=== PATIENT | male | born 1970 | race Caucasian/White ===

== ENCOUNTER 2016-07-04 18:21 | Inpatient (IN) | payer BC, OTHER ==
[~2016-07-04] VITALS: Ht 180.3 cm; Wt 102.1 kg
[~2016-07-04 18:21] MED LIST: HCT25T; HYDR-2997 PO; LISI1TAB10 PO; NAPR-243 PO; ONDA4TAB11 PO; RABE20TA PO; VARD10TA19 PO; VERA120T
--- OUTSIDE RECORDS SUMMARY | 2016-07-04 18:26 | XMS REPORT | Continuity of Care Document ---
Author Author [facility] Address Unknown Phone Unavailable Allergies Active Description Code Type Severity Reaction Onset Reported/Identified Relationship to Patient Clinical Status Yes No Known Drug Allergies [id number] Drug Allergy Mild N/A 03/21/2008 Medications Problems Date Dx Coded Attending Type Code Diagnosis Diagnosed By 11/24/2007 530.81 GERD 11/24/2007 709.9 DERMATITIS OTHER SKIN DISORDERS 11/24/2007 530.81 GERD 11/24/2007 709.9 DERMATITIS OTHER SKIN DISORDERS 11/24/2007 MYRIAM CARTER DOA K 530.81 GERD 11/24/2007 CARTER DO TERENCE K 709.9 DERMATITIS OTHER SKIN DISORDERS 11/24/2007 RAUL WALTON TERENCE K 530.81 GERD 11/24/2007 CARTER DO TERENCE K 709.9 DERMATITIS OTHER SKIN DISORDERS 08/23/2008 401.9 ESSENTIAL HYPERTENSION 08/23/2008 401.9 ESSENTIAL HYPERTENSION 08/23/2008 CARTER DO TERENCE K 401.9 ESSENTIAL HYPERTENSION 08/23/2008 CARTER DO TERENCE K 401.9 ESSENTIAL HYPERTENSION 01/19/2009 465.9 UPPER RESPIRATORY INFECTION 01/19/2009 786.2 cough 01/19/2009 465.9 UPPER RESPIRATORY INFECTION 01/19/2009 786.2 cough 01/19/2009 CARTER DO TERENCE K 465.9 UPPER RESPIRATORY INFECTION 01/19/2009 CARTER DO, TERENCE K 786.2 cough 01/19/2009 CARTER DO TERENCE K 465.9 UPPER RESPIRATORY INFECTION 01/19/2009 CARTER DO, TERENCE K 786.2 cough 12/22/2009 110.5 DERMATOPHYTOSIS, OF THE BODY 12/22/2009 302.72 PSYCHOSEXUAL DYSFUNCTION, WITH INHIBITED SEXUAL EXCITEMENT 12/22/2009 110.5 DERMATOPHYTOSIS, OF THE BODY 12/22/2009 302.72 PSYCHOSEXUAL DYSFUNCTION, WITH INHIBITED SEXUAL EXCITEMENT 12/22/2009 MYRIAM CARTER DOA K 110.5 DERMATOPHYTOSIS, OF THE BODY 12/22/2009 TERENCE CARTER DO 302.72 PSYCHOSEXUAL DYSFUNCTION, WITH INHIBITED SEXUAL EXCITEMENT 12/22/2009 TERENCE CARTER DO 110.5 DERMATOPHYTOSIS, OF THE BODY 12/22/2009 TERENCE CARTER DO 302.72 PSYCHOSEXUAL DYSFUNCTION, WITH INHIBITED SEXUAL EXCITEMENT 08/24/2010 729.5 ARM PAIN 08/24/2010 784.0 HEADACHE 08/24/2010 729.5 ARM PAIN 08/24/2010 784.0 HEADACHE 08/24/2010 TERENCE CARTER DO K 729.5 ARM PAIN 08/24/2010 TERENCE CARTER DO K 784.0 HEADACHE 08/24/2010 TERENCE CARTER DO K 729.5 ARM PAIN 08/24/2010 MYRIAM CARTER DOA K 784.0 HEADACHE 11/09/2010 719.46 KNEE PAIN 11/09/2010 V68.1 ISSUE OF REPEAT PRESCRIPTIONS 11/09/2010 719.46 KNEE PAIN 11/09/2010 V68.1 ISSUE OF REPEAT PRESCRIPTIONS 11/09/2010 TERENCE CARTER DO 719.46 KNEE PAIN 11/09/2010 TERENCE CARTER DO V68.1 ISSUE OF REPEAT PRESCRIPTIONS 11/09/2010 TERENEC CARTER DO K 719.46 KNEE PAIN 11/09/2010 TERENCE CARTER DO V68.1 ISSUE OF REPEAT PRESCRIPTIONS 04/17/2011 461.9 SINUSITIS ACUTE 04/17/2011 461.9 SINUSITIS ACUTE 04/17/2011 TERENCE CARTER DO 461.9 SINUSITIS ACUTE 04/17/2011 TERENCE ACRTER DO 461.9 SINUSITIS ACUTE 07/28/2011 257.2 OTHER TESTICULAR HYPOFUNCTION 07/28/2011 257.2 OTHER TESTICULAR HYPOFUNCTION 07/28/2011 TERENCE CARTER DO 257.2 OTHER TESTICULAR HYPOFUNCTION 07/28/2011 TERENCE CARTER DO 257.2 OTHER TESTICULAR HYPOFUNCTION 08/01/2011 585.1 CHRONIC KIDNEY DISEASE STAGE I 08/01/2011 585.1 CHRONIC KIDNEY DISEASE STAGE I 08/01/2011 TERENCE CARTER DO 585.1 CHRONIC KIDNEY DISEASE STAGE I 08/01/2011 TERENCE CARTER DO 585.1 CHRONIC KIDNEY DISEASE STAGE I 05/15/2012 782.3 EDEMA 05/15/2012 TERENCE CARTER DO 782.3 EDEMA Procedures Code Description [place] [address] ROUTINE VENIPUNCTURE 05/27/2012 29051 MICRO ALBUMIN-IN HOUSE 05/27/2012 61278 CMP 05/27/2012 58013 LIPID PANEL 05/27 [id number] GFR CALC (RESULT ONLY) 05/27/2012 88953 CBC 05/27/2012 58094 TESTOSTERONE FREE 05/27/2012 75358 TSH 05/27/2012 Results Encounters ACCT No. Visit Date/Time Discharge Status Pt. Type Provider Facility Loc./Unit Complaint [id number] 05/27/2012 09:44:00 05/27/2012 23: 59:59 CLS Outpatient TERENCE CARTER DO [id number] 05/15/2012 09:38:00 05/15/2012 23: 59:59 CLS Outpatient [id number] 12/10/2011 13:24:00 12/10/2011 23: 59:59 CLS Outpatient [id number] 12/10/2011 13:24:00 12/10/2011 23:59 :59 CLS Outpatient TERENCE CARTER DO
[2016-07-04] MEDS ORDERED: NS IV 1000 ML 1,000 ML IV ONE (19:35)
[2016-07-04] MEDS ORDERED: NS IV 1000 ML 1,000 ML ONE (19:36)
[2016-07-04 19:41] LABS: BASOPHILS % (AUTO) 0 % (0-10); EOSINOPHILS % (AUTO) 0 % (0-10); LYMPHOCYTES # (AUTO) 1.1 X 10^3 (1.0-4.0); LYMPHOCYTES % (AUTO) 4 % (12-44); MEAN CORPUSCULAR HEMOGLOBIN 30 PG (25-34); MEAN CORPUSCULAR HGB CONC 35 G/DL (32-36); MEAN CORPUSCULAR VOLUME 87 FL (80-99); MEAN PLATELET VOLUME 9.8 FL (7.4-10.4); MONOCYTES # (AUTO) 2.9 X 10^3 (0.0-1.0); MONOCYTES % (AUTO) 9 % (0-12); NEUTROPHILS # (AUTO) 27.8 X 10^3 (1.8-7.8); NEUTROPHILS % (AUTO) 87 % (42-75); PLATELET COUNT 342 10^3/uL (130-400); RED BLOOD COUNT 5.04 10^6/uL (4.35-5.85); RED CELL DISTRIBUTION WIDTH 14.1 % (10.0-14.5)
[2016-07-04 19:44] LABS: WHITE BLOOD COUNT 31.8 10^3/uL (4.3-11.0)
[2016-07-04 19:57] LABS: BAND NEUTROPHILS 4 %; BASOPHILS % (MANUAL) 1 %; EOSINOPHILS % (MANUAL) 0 %; LYMPHOCYTES % (MANUAL) 8 %; NEUTROPHILS % (MANUAL) 82 %
[2016-07-04 20:01] LABS: ALBUMIN 4.2 G/DL (3.2-4.5); BILIRUBIN,TOTAL 1.5 MG/DL (0.1-1.0); CALCIUM 9.2 MG/DL (8.5-10.1); CREATININE SERUM 1.96 MG/DL (0.60-1.30); POTASSIUM 4.2 MMOL/L (3.6-5.0); TOTAL PROTEIN 6.9 G/DL (6.4-8.2)
[2016-07-04 20:04] LABS: AMYLASE 43 U/L (25-125); LIPASE 19 U/L (8-78)
--- NOTE | 2016-07-04 21:07 | Diagnostic Imaging Report ---
PROCEDURE: CT chest, abdomen, and pelvis without contrast. TECHNIQUE: Multiple contiguous axial images were obtained through the chest, abdomen, and pelvis without the use of intravenous contrast. INDICATION: Fever of unknown origin. Mid abdominal pain. Nausea. COMPARISON: CT abdomen and pelvis without contrast 03/17/2008. FINDINGS: CT chest: Minimal bibasilar atelectasis. The lungs are otherwise clear. No pleural or pericardial effusion. No mediastinal, hilar or axillary lymphadenopathy. No acute osseous findings. CT abdomen and pelvis: Large esophageal hiatal hernia. A 3 mm ureteral stone in the left ureterovesical junction results in no ureteropyelocaliectasis. Single 2 mm nonobstructing calyceal tip renal stone in the right kidney. Mild scattered arterial calcifications. Appendectomy. The liver, gallbladder, pancreas, spleen, adrenals, left kidney, right ureter, bladder are negative on this noncontrast exam. No free intraperitoneal air/fluid, lymphadenopathy or evidence of bowel obstruction. Osseous structures are unremarkable. IMPRESSION: 1. Large esophageal hiatal hernia. 2. Nonobstructing 3 mm ureteral stone in the left UVJ. No left hydronephrosis. 3. Minimal bibasilar atelectasis. CT of the chest is otherwise negative. Dictated by: Dictated on workstation # [id number]
[2016-07-04 21:39] LABS: BILIRUBIN,URINE NEGATIVE (NEGATIVE); KETONES,URINE NEGATIVE (NEGATIVE); LEUKOCYTE ESTERASE ,URINE 1+ (NEGATIVE); NITRITE,URINE NEGATIVE (NEGATIVE); PH,URINE 5 (5-9); PROTEIN,URINE 2+ (NEGATIVE); UROBILINOGEN,URINE NORMAL (NORMAL)
[2016-07-04 21:54] LABS: SQUAMOUS EPITHELIAL CELL,UR RARE /HPF; WBC,URINE RARE /HPF
[2016-07-04] MEDS ORDERED: KETOROLAC 30 MG/ML VIAL IVP ONE (22:00)
[2016-07-04] MEDS ORDERED: cefTRIAXone INJECTION 1,000 MG in NS (IVPB) 50 ML IV ONE (22:00)
[2016-07-04 22:30] VITALS: BP 87/55
[2016-07-04] MEDS ORDERED: LACTATED RINGERS 1,000 ML IV ONE (22:50)
[2016-07-04] MEDS ORDERED: D5 1/2 NS 1000 ML IV SOLUTION 1,000 ML IV ONE (23:31)
[2016-07-04] MEDS ORDERED: ONDANSETRON 4 MG/2 ML (SDV) Z0FRAN IV PRN (23:45)
[2016-07-04] MEDS: D5 1/2 NS 1000 ML IV SOLUTION 1,000 ML IV SCH (23:47)
[2016-07-05] VITALS (10 sets, daily range): BP systolic 88–104; BP diastolic 50–66
[2016-07-05] MEDS: KETOROLAC 30 MG/ML VIAL IVP PRN ×2 (04:53→19:43)
[2016-07-05 06:09] LABS: BASOPHILS % (AUTO) 0 % (0-10); EOSINOPHILS % (AUTO) 0 % (0-10); LYMPHOCYTES # (AUTO) 0.8 X 10^3 (1.0-4.0); LYMPHOCYTES % (AUTO) 4 % (12-44); MEAN CORPUSCULAR HEMOGLOBIN 30 PG (25-34); MEAN CORPUSCULAR HGB CONC 34 G/DL (32-36); MEAN CORPUSCULAR VOLUME 87 FL (80-99); MEAN PLATELET VOLUME 9.7 FL (7.4-10.4); MONOCYTES # (AUTO) 2.2 X 10^3 (0.0-1.0); MONOCYTES % (AUTO) 10 % (0-12); NEUTROPHILS # (AUTO) 19.9 X 10^3 (1.8-7.8); NEUTROPHILS % (AUTO) 87 % (42-75); PLATELET COUNT 252 10^3/uL (130-400); RED BLOOD COUNT 4.35 10^6/uL (4.35-5.85)
[2016-07-05 06:34] LABS: ALANINE AMINOTRANSFERASE 55 U/L (0-55); ALBUMIN 3.4 G/DL (3.2-4.5); ANION GAP 10 MMOL/L (5-14); ASPARTATE AMINO TRANSFERASE 43 U/L (5-34); BILIRUBIN,TOTAL 1.4 MG/DL (0.1-1.0); BLOOD UREA NITROGEN 28 MG/DL (7-18); BUN/CREATININE RATIO 22; CALCIUM 8.5 MG/DL (8.5-10.1); CARBON DIOXIDE 19 MMOL/L (21-32); CHLORIDE 108 MMOL/L (98-107); CREATININE SERUM 1.29 MG/DL (0.60-1.30); GFR ESTIMATED > 60; GLUCOSE 116 MG/DL (70-105); POTASSIUM 3.4 MMOL/L (3.6-5.0); SODIUM 137 MMOL/L (135-145); TOTAL PROTEIN 5.7 G/DL (6.4-8.2)
[2016-07-05] MEDS: ACETAMINOPHEN 500 MG TAB (TYLENOL) PO PRN (06:55)
[2016-07-05] MEDS: D5 1/2 NS 1000 ML IV SOLUTION 1,000 ML IV SCH ×3 (06:55→22:16)
[2016-07-05] MEDS ORDERED: FLU TRIvalent (5 YOA+) 2016-17 (AFLURIA) 0.5 ML IM ONE (07:00)
[2016-07-05] MEDS ORDERED: CATHETER FLUSH 10 ML SYR IV PRN (07:00)
--- NOTE | 2016-07-05 07:08 | ED General ---
General Chief Complaint: Fever-Adult/Adol Stated Complaint: SEPSIS,DEHYDRATION,L DISTAL URETERAL STONE,EPIGAST Nursing Triage Note: PT REPORTS FEVER TODAY OF 103.2. PT REPORTS GENERALIZED BODY ACHES AND ABDOMINAL PAIN. PT FEELS LIGHTHEADED AND REPORTS HIS VISION IS "DARKER THAN NORMAL." Nursing Sepsis Screen: No Definite Risk Source of Information: Patient (LIMITED HISTORIAN), Spouse History of Present Illness Time Seen by Provider: 19:30 Initial Comments PT ARRIVES VIA POV FROM HOME PT STATES HE WAS SICK LAST WEEK WITH FEVER, WAS FINE FOR A FEW DAYS, THEN TODAY FEVER RETURNED AND WAS 103.2 C/O EPIGASTRIC PAIN C/O NAUSEA AND VOMITED X 1 --NO HEMATEMESIS OR COFFEE-GROUND EMESIS C/O DIARRHEA X 4--NO BLACK/BLOODY/TARRY STOOLS ATE SMALL AMOUNT OF YOGURT TODAY AND 2 SMALL GLASSED OF O.J. TODAY--NO OTHER INTAKE LAST VOID WAS AT 11:30 AM TODAY NO BACK PAIN NO COUGH NO CHEST PAIN OR SHORTNESS OF BREATH PT STATES MULTIPLE FAMILY MEMBERS WITH SAME ARRIVES LATER AND STATES THAT HOUSEHOLD MEMBER TESTED + FOR FLU LAST WEEK SHE ALSO STATES THAT BOTH SHE AND PT WERE TREATED LAST WEEK WITH CEFDINIR FOR URI SYMPTOMS--SHE IS BETTER, AND PT WAS BETTER FOR A FEW DAYS. PCP: DR. DEJESUS Allergies and Home Medications Allergies Coded Allergies: No Known Drug Allergies (Unverified , 03/21/08) Home Medications Hctz/Lisinopril 1 Tab Tablet 1 EACH PO DAILY (Reported) Ondansetron 4 Mg Tab.rapdis #10 4 MG PO Q6H PRN PRN Prescribed by: ROLANDO GONZALES on 04/09/11 0950 Rabeprazole Sodium 20 Mg Tablet.dr 20 MG PO (Reported) Vardenafil Hcl 10 Mg Tablet 10 MG PO (Reported) Verapamil Hcl 120 Mg Tablet (Reported) Constitutional: see HPI fever malaise weakness EENTM: no symptoms reported Respiratory: no symptoms reported Cardiovascular: no symptoms reported Gastrointestinal: see HPI abdominal pain diarrhea loss of appetite nausea vomiting Genitourinary: see HPI decreased output Musculoskeletal: no symptoms reported Skin: no symptoms reported Psychiatric/Neurological: No Symptoms ReportedDenies Headache Hematologic/Lymphatic: No Symptoms Reported Immunological/Allergic: no symptoms reported Past Jnbnaai-Fngtep-Lrmmkk Hx Patient Social History Alcohol Use: Past History (HISTORY OF ABUSE-NONE FOR 3 2 YEARS, PER PT ON 01/12) Recreational Drug Use: Yes (THC) Smoking Status: Current Everyday Smoker (1/2 PPD) Type Used: Cigarettes Recent Foreign Travel: No Contact w/Someone Who Travel: No Recent Infectious Disease Expo: No Recent Hopitalizations: No Physical Abuse Screen: No Sexual Abuse: No Seasonal Allergies Seasonal Allergies: No Surgeries HX Surgeries: Yes (FACIAL RECONSTRUCTION SURGERY; KIDNEY STONE REMOVAL) Surgeries: Appendectomy, Renal Respiratory Hx Respiratory Disorders: No Cardiovascular Hx Cardiac Disorders: Yes Cardiac Disorders: Hypertension Neurological Hx Neurological Disorders: No Reproductive System Hx Reproductive Disorders: No Sexually Transmitted Disease: No Genitourinary Hx Genitourinary Disorders: Yes (KIDNEY STONE) Genitourinary Disorders: Kidney Stones Gastrointestinal Hx Gastrointestinal Disorders: Yes Gastrointestinal Disorders: Gastroesophageal Reflux Musculoskeletal Hx Musculoskeletal Disorders: No Endocrine Hx Endocrine Disorders: No HEENT HX ENT Disorders: No Cancer Hx Cancer: No Psychosocial Hx Psychiatric Problems: Yes Behavioral Health Disorders: Depression Integumentary HX Skin/Integumentary Disorder: No Blood Transfusions Hx Blood Disorders: No Adverse Reaction to a Blood Tr: No Family Medical History Family Medial History: Completed stroke 19 MOTHER Diabetes mellitus 19 MOTHER Headache disorder 19 FATHER Hypertension 19 FATHER 19 MOTHER G8 BROTHER G8 BROTHER G8 BROTHER G8 BROTHER G8 SISTER G8 SISTER G8 SISTER G8 SISTER Physical Exam Vital Signs Vital Sign - Last 12Hours 07/04/16 07/04/16 19:19 19:30 Temp 97.1 Pulse 100 Resp 18 B/P 95/57 Pulse Ox 96 O2 Delivery Room Air Capillary Refill : Less Than 3 Seconds General Appearance: No Apparent Distress WD/WN Other (LETHARGIC) HEENT: PERRL/EOMI Other (DRY ORAL MUCOSA) Neck: Full Range of Motion Normal Inspection Non Tender Supple Respiratory: Normal Breath Sounds No Accessory Muscle Use No Respiratory Distress Cardiovascular: Regular Rate, Rhythm No Edema No JVD No Murmur Normal Peripheral Pulses Gastrointestinal: Normal Bowel Sounds No Organomegaly No Pulsatile Mass Soft Tenderness (EPIGASTRIC ) Back: Normal Inspection Extremity: Normal Inspection Normal Range of Motion Non Tender No Calf Tenderness No Pedal Edema Neurologic/Psychiatric: Alert (BUT LETHARGIC) Oriented x3 No Motor/Sensory Deficits cold roll catcher II-XII Norm as Tested Skin: Normal Color Warm/Dry Tattoos/Piercings (MULTIPLE TATTOOS) Progress/Results/Core Measures Results/Orders Lab Results Laboratory Tests Test 07/04/16 19:15 07/04/16 19:45 07/04/16 21:30 07/04/16 21:57 Range/Units Alanine Aminotransferase (ALT/SGPT) 34 0-55 U/L Albumin 4.2 3.2-4.5 G/DL Alkaline Phosphatase 83 40-136 U/L Amylase Level 43 25-125 U/L Anion Gap 12 5-14 MMOL/L Aspartate Amino Transf (AST/SGOT) 19 5-34 U/L BUN/Creatinine Ratio 13 Band Neutrophils 4 % Basophils # (Auto) 0.0 0.0-0.1 10^3/uL Basophils % (Manual) 1 % Basophils (%) (Auto) 0 0-10 % Blood Morphology Comment NORMAL Blood Urea Nitrogen 26 H 7-18 MG/DL Calcium Level 9.2 8.5-10.1 MG/DL Carbon Dioxide Level 22 21-32 MMOL/L Chloride Level 103 98-107 MMOL/L Creatinine 1.96 H 0.60-1.30 MG/DL Eosinophils # (Auto) 0.0 0.0-0.3 10^3/uL Eosinophils % (Manual) 0 % Eosinophils (%) (Auto) 0 0-10 % Estimat Glomerular Filtration Rate 37 Glucose Level 106 H 70-105 MG/DL Hematocrit 44 40-54 % Hemoglobin 15.1 13.3-17.7 G/DL Lipase 19 8-78 U/L Lymphocytes # (Auto) 1.1 1.0-4.0 X 10^3 Lymphocytes % (Manual) 8 % Lymphocytes (%) (Auto) 4 L 12-44 % Mean Corpuscular Hemoglobin 30 25-34 PG Mean Corpuscular Hemoglobin Concent 35 32-36 G/DL Mean Corpuscular Volume 87 80-99 FL Mean Platelet Volume 9.8 7.4-10.4 FL Monocytes # (Auto) 2.9 H 0.0-1.0 X 10^3 Monocytes % (Manual) 5 % Monocytes (%) (Auto) 9 0-12 % Monoscreen NEGATIVE NEGATIVE Neutrophils # (Auto) 27.8 H 1.8-7.8 X 10^3 Neutrophils % (Manual) 82 % Neutrophils (%) (Auto) 87 H 42-75 % Platelet Count 342 130-400 10^3/uL Potassium Level 4.2 3.6-5.0 MMOL/L Red Blood Count 5.04 4.35-5.85 10^6/uL Red Cell Distribution Width 14.1 10.0-14.5 % Sodium Level 137 135-145 MMOL/L Total Bilirubin 1.5 H 0.1-1.0 MG/DL Total Protein 6.9 6.4-8.2 G/DL White Blood Count 31.8 *H 4.3-11.0 10^3/uL Lactic Acid Level 0.94 0.50-2.00 MMOL/L Urine Bacteria TRACE /HPF Urine Bilirubin NEGATIVE NEGATIVE Urine Casts PRESENT /LPF Urine Clarity SLIGHTLY CLOUDY Urine Color YELLOW Urine Crystals NONE /LPF Urine Culture Indicated NO Urine Glucose (UA) NEGATIVE NEGATIVE Urine Hyaline Casts 10-25 H /LPF Urine Ketones NEGATIVE NEGATIVE Urine Leukocyte Esterase 1+ H NEGATIVE Urine Mucus MODERATE H /LPF Urine Nitrite NEGATIVE NEGATIVE Urine Protein 2+ H NEGATIVE Urine RBC NONE /HPF Urine RBC (Auto) NEGATIVE NEGATIVE Urine Specific Posey 1.020 1.016-1.022 Urine Squamous Epithelial Cells RARE /HPF Urine Urobilinogen NORMAL NORMAL MG/DL Urine WBC RARE /HPF Urine pH 5 5-9 Group A Streptococcus Screen NEGATIVE NEGATIVE Test 07/05/16 05:56 Range/Units Alanine Aminotransferase (ALT/SGPT) 55 0-55 U/L Albumin 3.4 3.2-4.5 G/DL Alkaline Phosphatase 80 40-136 U/L Anion Gap 10 5-14 MMOL/L Aspartate Amino Transf (AST/SGOT) 43 H 5-34 U/L BUN/Creatinine Ratio 22 Basophils # (Auto) 0.0 0.0-0.1 10^3/uL Basophils (%) (Auto) 0 0-10 % Blood Urea Nitrogen 28 H 7-18 MG/DL Calcium Level 8.5 8.5-10.1 MG/DL Carbon Dioxide Level 19 L 21-32 MMOL/L Chloride Level 108 H 98-107 MMOL/L Creatinine 1.29 0.60-1.30 MG/DL Eosinophils # (Auto) 0.0 0.0-0.3 10^3/uL Eosinophils (%) (Auto) 0 0-10 % Estimat Glomerular Filtration Rate > 60 Glucose Level 116 H 70-105 MG/DL Hematocrit 38 L 40-54 % Hemoglobin 12.9 L 13.3-17.7 G/DL Lymphocytes # (Auto) 0.8 L 1.0-4.0 X 10^3 Lymphocytes (%) (Auto) 4 L 12-44 % Mean Corpuscular Hemoglobin 30 25-34 PG Mean Corpuscular Hemoglobin Concent 34 32-36 G/DL Mean Corpuscular Volume 87 80-99 FL Mean Platelet Volume 9.7 7.4-10.4 FL Monocytes # (Auto) 2.2 H 0.0-1.0 X 10^3 Monocytes (%) (Auto) 10 0-12 % Neutrophils # (Auto) 19.9 H 1.8-7.8 X 10^3 Neutrophils (%) (Auto) 87 H 42-75 % Platelet Count 252 130-400 10^3/uL Potassium Level 3.4 L 3.6-5.0 MMOL/L Red Blood Count 4.35 4.35-5.85 10^6/uL Red Cell Distribution Width 14.0 10.0-14.5 % Sodium Level 137 135-145 MMOL/L Total Bilirubin 1.4 H 0.1-1.0 MG/DL Total Protein 5.7 L 6.4-8.2 G/DL White Blood Count 23.0 H 4.3-11.0 10^3/uL Micro Results Microbiology 07/04/16 Influenza Types A,B Antigen (CHRISTINA) - Final, Complete My Orders Orders-ZEIO SANTILLAN DO Amylase (07/04/16 19:40) Lactic Acid Analyzer (07/04/16 19:40) Lipase (07/04/16 19:40) Blood Culture (07/04/16 19:40) Ct Chest/Abdomen/Pelvis Wo (07/04/16 20:17) Ketorolac Injection (Toradol Injection) (07/04/16 22:00) Ceftriaxone Injection (Rocephin Injectio (07/04/16 22:00) Monotest (07/04/16 21:56) Rapid Strep A Screen (07/04/16 21:56) Saline Lock/Iv-Start (07/04/16 22:50) Lactated Ringers (Lr 1000 Ml Iv Solution (07/04/16 22:50) D5 1/2 Ns 1000 Ml Iv Solution (Dextrose (07/04/16 23:31) Medications Given in ED Current Medications Medications Dose Ordered Sig/Selene Route Start Time Stop Time Status Last Admin Dose Admin Sodium Chloride 1,000 ml @ 0 mls/hr Q0M ONCE IV 07/04/16 19:35 07/04/16 19:37 DC 07/04/16 19:36 0 MLS/HR Vital Signs/I&O Vital Sign - Last 12Hours 07/04/16 07/04/16 07/04/16 07/04/16 19:19 19:30 20:00 22:00 Temp 97.1 97.1 97.1 97.1 Pulse 100 82 85 76 Resp 18 18 20 20 B/P 95/57 100/67 94/55 98/64 Pulse Ox 96 98 98 98 O2 Delivery Room Air Room Air Room Air 07/04/16 07/04/16 07/04/16 07/04/16 22:30 22:30 23:09 23:45 Temp 97.1 98.6 99.0 Pulse 77 64 80 Resp 16 16 18 B/P 98/57 87/55 Pulse Ox 95 94 95 O2 Delivery Room Air Room Air Room Air 07/05/16 07/05/16 07/05/16 07/05/16 00:30 02:00 04:00 06:00 Temp 98.9 98.0 100.1 101.3 Pulse 62 68 72 74 Resp 18 18 18 18 B/P 88/56 88/56 102/66 94/60 Pulse Ox 94 96 97 97 O2 Delivery Room Air Room Air Room Air Room Air 07/05/16 06:55 Temp 101.3 Blood Pressure Mean: 71 Progress Note : Progress Note BP UP WITH FLUIDS PT SWEATING PROFUSELY PRIOR TO ADMIT. Diagnostic Imaging Comments CT CHEST/ABDOMEN/PELVIS--LARGE HIATAL HERNIA; NON-OBSTRUCTING 3 M M LEFT DISTAL URETERAL STONE AT UVJ; MINIMAL BIBASILAR ATELECTASIS--PER RADIOLOGIST REPORT @ 2111 Reviewed: Reviewed by Me Departure Communication Progress Notes 1947--ATTEMPTING TO CONTACT DR. LAN, MESSAGE LEFT ON CELL 2019--SPOKE WITH DR. LAN, ACCEPTS PT FOR ADMIT. Impression Impression: Primary Impression: Sepsis Additional Impressions: Dehydration Calculus of distal left ureter Epigastric abdominal pain Disposition: ADMITTED INPATIENT Condition: Improved Decision to Admit Reason: Admit from ER (General) Decision to Admit/Date: Jul 04, 2016 Time/Decision to Admit Time: 20:20 Departure-Patient Inst. Referrals: NOELLE DEJESUS MD (PCP) Primary Care Physician EZIO SANTILLAN DO Jul 05, 2016 07:08
[2016-07-05] MEDS ORDERED: IBUPROFEN TABLET 200 MG TAB PO PRN (08:30)
[2016-07-05] MEDS: PANTOPRAZOLE 40 MG/10 ML (PROTONIX) VIAL IV SCH (08:37)
[2016-07-05] MEDS ORDERED: METO-270 PO (10:04)
[2016-07-05] MEDS ORDERED: TRAM50TA2 (10:04)
[2016-07-05] MEDS ORDERED: SERT100T8 (10:04)
[2016-07-05] MEDS ORDERED: LISI40TA (10:04)
[2016-07-05] MEDS ORDERED: ACET125T2 (10:04)
[2016-07-05] MEDS ORDERED: OMEP20CA12 (10:04)
[2016-07-05] MEDS ORDERED: RT-ALBUINH IH (10:05)
[2016-07-05] MEDS ORDERED: ASCO-262 PO (10:06)
[2016-07-05] MEDS ORDERED: VITAMIN D CALCIUM (10:08)
[2016-07-05] MEDS ORDERED: CALC-140 PO (10:09)
--- NOTE | 2016-07-05 12:48 | History & Physical-Hospitalist ---
HPI History of Present Illness: HPI/Chief Complaint The patient is a 46-year-old white male who presented to the emergency room in the late afternoon with complaints of fever, some chills, and diarrhea. He reported a temperature up to 103.2 at home. This was accompanied by chills and sweats. He reported that he and his family have all had an upper respiratory illness in the week prior to this presentation. They had taken antibiotics and thought that they got better. This episode then ensued. The rest of the family remains improved. The medication which his and he had taken was said to be Ceftin here. His past medical history is positive for hypertension Source: patient Exam Limitations: no limitations Date Seen 07/05/16 Attending Physician Randa Plaesncia Rachel L MD Referring Physician Date of Admission Jul 04, 2016 at 20:20 Home Medications & Allergies Home Medications Reviewed patient Home Medication Reconciliation Form Allergies Coded Allergies: No Known Drug Allergies (Unverified , 03/21/08) Past Drlluyy-Xgpmxn-Yhnfez Hx Patient Social History Alcohol Use: Past History (HISTORY OF ABUSE-NONE FOR 3 1/2 YEARS, PER PT ON 01/12) Recreational Drug Use: Yes (THC) Smoking Status: Current Everyday Smoker (1/2 PPD) Type Used: Cigarettes Physical Abuse Screen: No Sexual Abuse: No Recent Foreign Travel: No Contact w/other who traveled: No Recent Hopitalizations: No Recent Infectious Disease Expo: No Seasonal Allergies Seasonal Allergies: No Surgeries HX Surgeries: Yes (FACIAL RECONSTRUCTION SURGERY; KIDNEY STONE REMOVAL) Surgeries: Appendectomy, Renal Respiratory Hx Respiratory Disorders: No Cardiovascular Hx Cardiovascular Disorders: Yes Cardiac Disorders: Hypertension Neurological Hx Neurological Disorders: No Reproductive System Hx Reproductive Disorders: No Sexually Transmitted Disease: No Genitourinary Hx Genitourinary Disorders: Yes (KIDNEY STONE) Genitourinary Disorders: Kidney Stones Gastrointestinal Hx Gastrointestinal Disorders: Yes Gastrointestinal Disorders: Gastroesophageal Reflux Musculoskeletal Hx Musculoskeletal Disorders: No Endocrine Hx Endocrine Disorders: No HEENT HX ENT Disorders: No Cancer Hx Cancer: No Psychosocial Hx Psychiatric Problems: Yes Behavioral Health Disorders: Depression Integumentary HX Skin/Integumentary Disorder: No Blood Transfusions Hx Blood Disorders: No Adverse Reaction to a Blood Tr: No Family Medical History Family Hx: Completed stroke 19 MOTHER Diabetes mellitus 19 MOTHER Headache disorder 19 FATHER Hypertension 19 FATHER 19 MOTHER G8 BROTHER G8 BROTHER G8 BROTHER G8 BROTHER G8 SISTER G8 SISTER G8 SISTER G8 SISTER Review of Systems Constitutional: see HPI EENTM: no symptoms reported Respiratory: cough dyspnea on exertion phlegm Cardiovascular: no symptoms reported Gastrointestinal: diarrhea loss of appetite nausea Genitourinary: no symptoms reported Musculoskeletal: no symptoms reported Skin: no symptoms reported Psychiatric/Neurological: No Symptoms Reported Physical Exam Physical Exam Vital Signs Vital Sign - Last 12Hours 07/04/16 07/04/16 19:19 19:30 Temp 97.1 Pulse 100 Resp 18 B/P 95/57 Pulse Ox 96 O2 Delivery Room Air Capillary Refill : Less Than 3 Seconds General Appearance: Mild Distress Eyes: Bilateral Eye Normal Inspection HEENT: Normal ENT Inspection Neck: Normal Inspection Respiratory: Chest Non Tender Lungs Clear Normal Breath Sounds No Accessory Muscle Use No Respiratory Distress Cardiovascular: Regular Rate, Rhythm No Edema No Gallop No JVD No Murmur Normal Peripheral Pulses Gastrointestinal: Other (abdomen is nontender bowel sounds are virtually absent) Back: Normal Inspection No CVA Tenderness No Vertebral Tenderness Neurologic/Psychiatric: Alert Oriented x3 No Motor/Sensory Deficits Normal Mood/Affect caser up II-XII Norm as Tested Skin: Other (the skin is extensively tattooed) Lymphatic: No Adenopathy Results Results/Procedures Lab Laboratory Tests 07/04/16 19:15 07/05/16 05:56 Assessment/Plan Admission Diagnosis Recent upper respiratory illness. 2.acute febrile illness. 3.frequent stools suggesting Clostridium difficile Assessment and Plan Continue IV fluids and nothing by mouth status. Add Questran for stools Stool collection for Clostridium difficile Consider discontinuation of Rocephin. Note distal ureteral stone with clean urine Clinical Quality Measures DVT/VTE Risk/Contraindication: Risk Factor Score Per Nursin RFS Level Per Nursing on Admit: 4+=Very High LLOYD GOODMAN MD Jul 05, 2016 12:48
--- NOTE | 2016-07-05 16:03 | Diagnostic Imaging Report ---
PROCEDURE: US abdomen complete. TECHNIQUE: Multiple real-time grayscale images were obtained over the abdomen in various projections. INDICATION: Abdominal pain. FINDINGS: There are no previous ultrasound examinations available for comparison. The CT chest, abdomen, and pelvis exam of 07/04/2016 noted a nonobstructed 3 mm ureteral stone in the left ureterovesical junction. There is no hydronephrosis. There is no abnormality of the gallbladder identified. On this exam, there is no sign of cholelithiasis. The gallbladder is somewhat distended, however. The gallbladder wall is also minimally thickened measuring 4-5 mm (normal 3 mm or less). There is no pericholecystic fluid to suggest acute cholecystitis, however. Even so, if clinical concern regarding an acute abnormality of the gallbladder persists, then a nuclear medicine hepatobiliary scan will be recommended for further study. The common bile duct is at the upper limits of normal measuring 6 mm. The liver is prominent but homogeneous. The spleen is also at the upper limits of normal measuring 6.3 x 6.6 x 12.5 cm. The kidneys are normal in size with the right kidney measuring 11.1 x 6.4 x 5.5 cm and left kidney estimated to be 12.4 x 6.8 x 5.3 cm. The small nonobstructive calculus in the right kidney seen on the CT exam is not well visualized on this study. There is still no evidence for hydronephrosis of either kidney. The pancreas and the proximal aorta are obscured by bowel gas. The inferior vena cava is unremarkable. IMPRESSION: 1. There is no evidence for cholelithiasis, but the gallbladder is distended and the gallbladder wall is minimally thickened. Recommendations as above. 2. There is no acute abnormality of the abdomen noted otherwise. 3. Both the liver and spleen are at the upper limits of normal. 4. The small nonobstructive calculus within the right kidney seen on the CT exam is not visualized on this study. Dictated by: Dictated on workstation # [id number]
[2016-07-05] MEDS: CHOLESTYRAMINE 4 GM (QUESTRAN LITE, PREVALITE) PKT PO SCH (22:16)
[2016-07-05] MEDS: cefTRIAXone INJECTION 1,000 MG in NS (IVPB) 50 ML IV SCH (22:16)
[2016-07-06] VITALS: BP 116/69
[2016-07-06] MEDS: D5 1/2 NS 1000 ML IV SOLUTION 1,000 ML IV SCH ×2 (01:05→08:16)
[2016-07-06] MEDS: ACETAMINOPHEN 500 MG TAB (TYLENOL) PO PRN (03:42)
[2016-07-06 04:30] VITALS: BP 105/61
[2016-07-06 05:19] LABS: BASOPHILS % (AUTO) 0 % (0-10); EOSINOPHILS # (AUTO) 0.1 10^3/uL (0.0-0.3); EOSINOPHILS % (AUTO) 1 % (0-10); LYMPHOCYTES # (AUTO) 1.4 X 10^3 (1.0-4.0); LYMPHOCYTES % (AUTO) 7 % (12-44); MEAN CORPUSCULAR HEMOGLOBIN 30 PG (25-34); MEAN CORPUSCULAR HGB CONC 34 G/DL (32-36); MEAN CORPUSCULAR VOLUME 88 FL (80-99); MONOCYTES # (AUTO) 1.6 X 10^3 (0.0-1.0); MONOCYTES % (AUTO) 8 % (0-12); NEUTROPHILS # (AUTO) 16.8 X 10^3 (1.8-7.8); NEUTROPHILS % (AUTO) 85 % (42-75); PLATELET COUNT 231 10^3/uL (130-400); RED BLOOD COUNT 4.08 10^6/uL (4.35-5.85); RED CELL DISTRIBUTION WIDTH 13.7 % (10.0-14.5); WHITE BLOOD COUNT 19.9 10^3/uL (4.3-11.0)
[2016-07-06] MEDS: KETOROLAC 30 MG/ML VIAL IVP PRN (08:16)
[2016-07-06] MEDS: PANTOPRAZOLE 40 MG/10 ML (PROTONIX) VIAL IV SCH (08:16)
[2016-07-06] MEDS: CHOLESTYRAMINE 4 GM (QUESTRAN LITE, PREVALITE) PKT PO SCH ×2 (08:16→21:55)
[2016-07-06 08:38] VITALS: BP 112/71
[2016-07-06] MEDS ORDERED: POTASSIUM CHLORIDE IV SCH (10:15)
[2016-07-06] MEDS ORDERED: 1/2 NS IV SCH (10:15)
[2016-07-06] MEDS ORDERED: D5 IV SCH (10:15)
--- NOTE | 2016-07-06 10:18 | Progress Note-Hospitalist ---
Progress Note HPI/CC on Admission The patient is a 46-year-old white male who presented to the emergency room in the late afternoon with complaints of fever, some chills, and diarrhea. He reported a temperature up to 103.2 at home. This was accompanied by chills and sweats. He reported that he and his family have all had an upper respiratory illness in the week prior to this presentation. They had taken antibiotics and thought that they got better. This episode then ensued. The rest of the family remains improved. The medication which his and he had taken was said to be Ceftin here. His past medical history is positive for hypertension Progress Notes/Assess & Plan Date Seen 07/06/16 Diagonsis/Assessment & Plan Reviewed progress notes and ER report Reviewed abdominal ultrasound reveals possible gallbladder a source of infection and I have consulted Dr. Thayer who agreed to see Updated the patient Patient's pain remains in the mid epigastric to the right upper quadrant consistent with gallbladder etiology of the source of problem Fever max was 101 but was 103.2 when he was admitted Rocephin remains Hyperkalemia will be supplemented and IV fluids No fever currently, vital signs stable, pleasant Regular rate and rhythm, clear to all sedation bilaterally No edema Right upper quadrant pain Laboratory Tests 07/06/16 05:05 Assessment: Fever of 103.2 with diarrhea and elevated total bilirubin and distended gallbladder consistent with possible gallbladder source of infection Nausea Diarrhea Leukocytosis Plan: Consult Dr. Thayer for possible cholecystectomy Maintain Rocephin antibiotics empirically Monitor closely Replace potassium and IV fluids Clear liquid diet until Dr. Thayer changes that Check labs in a.m. STEPHANIE LAN DO Jul 06, 2016 10:18
[2016-07-06] MEDS: D5 1/2 NS W/KCL 20 MEQ/L 1,000 ML IV SCH ×2 (10:38→21:58)
[2016-07-06] MEDS ORDERED: HYDROcodone/APAP 7.5 MG/325 MG (LORTAB, LORCET PLUS) TABLET PO PRN (11:30)
[2016-07-06 12:00] VITALS: BP 119/74
[2016-07-06] MEDS: metroNIDAZOLE 500 MG (FLAGYL) TAB PO SCH ×2 (14:53→21:54)
[2016-07-06 16:00] VITALS: BP 110/68
[2016-07-06 20:00] VITALS: BP 134/71
[2016-07-06] MEDS: cefTRIAXone INJECTION 1,000 MG in NS (IVPB) 50 ML IV SCH (21:57)
[2016-07-07] VITALS: BP 119/72
[2016-07-07 04:00] VITALS: BP 129/69
[2016-07-07 06:11] LABS: BASOPHILS % (AUTO) 0 % (0-10); EOSINOPHILS # (AUTO) 0.1 10^3/uL (0.0-0.3); EOSINOPHILS % (AUTO) 1 % (0-10); LYMPHOCYTES # (AUTO) 1.3 X 10^3 (1.0-4.0); LYMPHOCYTES % (AUTO) 14 % (12-44); MEAN CORPUSCULAR HEMOGLOBIN 30 PG (25-34); MEAN CORPUSCULAR HGB CONC 34 G/DL (32-36); MEAN CORPUSCULAR VOLUME 87 FL (80-99); MEAN PLATELET VOLUME 10.1 FL (7.4-10.4); MONOCYTES # (AUTO) 0.8 X 10^3 (0.0-1.0); MONOCYTES % (AUTO) 9 % (0-12); NEUTROPHILS # (AUTO) 7.4 X 10^3 (1.8-7.8); NEUTROPHILS % (AUTO) 77 % (42-75); PLATELET COUNT 233 10^3/uL (130-400); RED BLOOD COUNT 4.04 10^6/uL (4.35-5.85); RED CELL DISTRIBUTION WIDTH 13.7 % (10.0-14.5); WHITE BLOOD COUNT 9.6 10^3/uL (4.3-11.0)
[2016-07-07 06:35] LABS: ALANINE AMINOTRANSFERASE 28 U/L (0-55); ANION GAP 7 MMOL/L (5-14); ASPARTATE AMINO TRANSFERASE 13 U/L (5-34); BILIRUBIN,TOTAL 0.3 MG/DL (0.1-1.0); BLOOD UREA NITROGEN 10 MG/DL (7-18); BUN/CREATININE RATIO 11; CALCIUM 8.6 MG/DL (8.5-10.1); CARBON DIOXIDE 20 MMOL/L (21-32); CHLORIDE 116 MMOL/L (98-107); CREATININE SERUM 0.88 MG/DL (0.60-1.30); GFR ESTIMATED > 60; GLUCOSE 106 MG/DL (70-105); POTASSIUM 3.4 MMOL/L (3.6-5.0); SODIUM 143 MMOL/L (135-145); TOTAL PROTEIN 5.2 G/DL (6.4-8.2)
[2016-07-07 08:00] VITALS: BP 122/70
[2016-07-07] MEDS: metroNIDAZOLE 500 MG (FLAGYL) TAB PO SCH ×2 (08:52→13:40)
[2016-07-07] MEDS: PANTOPRAZOLE 40 MG/10 ML (PROTONIX) VIAL IV SCH (08:52)
[2016-07-07] MEDS: CHOLESTYRAMINE 4 GM (QUESTRAN LITE, PREVALITE) PKT PO SCH (08:52)
[2016-07-07] MEDS: D5 1/2 NS W/KCL 20 MEQ/L 1,000 ML IV SCH (09:53)
--- NOTE | 2016-07-07 09:54 | Progress Note (SOAP) ---
Subjective Subjective/Events-last exam Patient seen with Dr. Thayer. Patient reports doing well. Denied any fever/ chills. Tolerating clear liquid diet with no N/V. Diarrhea improving. Minimal abdominal discomfort. Ambulating. Patient does report that he is hungry. Review of Systems General: No Chills Gastrointestinal: No: Abdominal Pain, Nausea, Vomiting Objective Exam Vital Signs Date Time Temp Pulse Resp B/P Pulse Ox O2 Delivery O2 Flow Rate FiO2 07/07/16 08:00 98.3 62 20 122/70 100 Room Air 07/07/16 04:00 99.3 65 20 129/69 100 Room Air 07/07/16 00:00 98.6 55 18 119/72 99 Room Air 07/06/16 20:00 98.3 71 20 134/71 98 Room Air 07/06/16 16:00 98.0 53 16 110/68 98 Room Air 07/06/16 12:00 99.1 70 20 119/74 97 Room Air I & O 07/07/16 07:00 Intake Total 2450 ml Output Total 1725 ml Balance 725 ml Capillary Refill : Less Than 3 Seconds General Appearance: No Apparent Distress WD/WN HEENT: PERRL/EOMI Neck: Full Range of Motion Normal Inspection Non Tender Supple Respiratory: Chest Non Tender Lungs Clear Normal Breath Sounds No Accessory Muscle Use No Respiratory Distress Cardiovascular: Regular Rate, Rhythm No Edema No JVD Gastrointestinal: normal bowel sounds non tender soft Extremity: Normal Capillary Refill Normal Inspection Normal Range of Motion Non Tender No Calf Tenderness No Pedal Edema Neurologic/Psychiatric: Alert Oriented x3 Skin: Normal Color Warm/Dry Results Lab Laboratory Tests 07/07/16 05:50: Alanine Aminotransferase (ALT/SGPT) 28, Albumin 3.0L, Alkaline Phosphatase 66, Anion Gap 7, Aspartate Amino Transf (AST/SGOT) 13, BUN/Creatinine Ratio 11, Basophils # (Auto) 0.0, Basophils (%) (Auto) 0, Blood Urea Nitrogen 10, Calcium Level 8.6, Carbon Dioxide Level 20L, Chloride Level 116H, Creatinine 0.88, Eosinophils # (Auto) 0.1, Eosinophils (%) (Auto) 1, Estimat Glomerular Filtration Rate > 60, Glucose Level 106H, Hematocrit 35L, Hemoglobin 12.0L, Lymphocytes # (Auto) 1.3, Lymphocytes (%) (Auto) 14, Mean Corpuscular Hemoglobin 30, Mean Corpuscular Hemoglobin Concent 34, Mean Corpuscular Volume 87, Mean Platelet Volume 10.1, Monocytes # (Auto) 0.8, Monocytes (%) (Auto) 9, Neutrophils # (Auto) 7.4, Neutrophils (%) (Auto) 77H, Platelet Count 233, Potassium Level 3.4L, Red Blood Count 4.04L, Red Cell Distribution Width 13.7, Sodium Level 143, Total Bilirubin 0.3, Total Protein 5.2L, White Blood Count 9.6 Microbiology 07/04/16 Blood Culture - Preliminary, Resulted No growth 07/06/16 C. difficile DNA Amplification - Final, Complete 07/06/16 C. difficile GDH Antigen & Toxins - Final, Complete 07/04/16 Throat Culture - Final, Complete No Beta Strep isolated Assessment/Plan Assessment/Plan Assess & Plan/Chief Complaint 46 year old male with diarrhea and fevers, C-Diff positive stool. WBC improved to 9.6 today from 19.9 yesterday. VSS. Abx with flagyl for C-diff. Will advance diet to DYS3. Medical management. Clinical Quality Measures DVT/VTE Risk/Contraindication: Risk Factor Score Per Nursin RFS Level Per Nursing on Admit: 4+=Very High JEROD HONG APRN Jul 07, 2016 9:54 am
--- NOTE | 2016-07-07 11:32 | CONSULTATION REPORT ---
DATE OF ADMISSION: 07/04/2016 DATE OF CONSULTATION: 07/06/2016 ATTENDING PRIMARY CARE PHYSICIAN: Dr. Maura Nunez. CONSULTING PHYSICIAN: Dr. Plasencia. Mr. Saúl Farley is a 46-year-old male who presented in the evening with fever or chills as well as diarrhea. He reported that his temperatures was 103.2 at home and again was having symptoms of fever, chills, as well as sweats. He reports that the week previous, he had had flulike symptoms including severe cough, sputum production nasal drainage. He also reports that he was also having diarrhea. This time around he also did develop pain in the epigastric region, as well as a right upper abdominal quadrant. He is being treated for pneumonia, as well as a urinary tract infection. He initially came in with an elevated white count in the 30s. However, this has improved on Rocephin. He does have pain in the epigastric region, as well as a right upper abdominal quadrant upon palpation, however, there is no peritoneal signs. An ultrasound was also performed, which did show dilatation of the gallbladder; however, no definitive signs of acute cholecystitis as well as no signs of cholelithiasis. However, there was a distended gallbladder. A CT scan also did show a large hiatal hernia. PAST MEDICAL HISTORY: 1. Nephrolithiasis. 2. Gastroesophageal reflux disease. 3. Depression. PAST SURGERIES: 1. Laparoscopic appendectomy. 2. Ureteral stone extraction. 3. Facial reconstructive surgery. ALLERGIES: No known drug allergies. MEDICATIONS: 1. Sertraline 100 mg daily. 2. Omeprazole 20 mg daily. 3. Metoprolol 25 mg daily. Lisinopril 40 mg daily. 4. Albuterol 1 puff daily. 5. Acetazolamide 125 mg daily. 6. Tramadol p.r.n. SOCIAL HISTORY: Previous smoke. Previous alcohol abuse, quit 2 to 3 years ago. VITAL SIGNS: Temperature 96.7, blood pressure 112/71, pulse 65, respirations 18, pulse of 96% on room air. REVIEW OF SYSTEMS: This is a well-nourished male, currently in no acute distress. He is not experiencing any shortness of breath or difficulty breathing. No chest pain, palpitations, diaphoresis. No nausea, vomiting, still having loose stools, however, states that this is a slightly solidifying. No red blood per rectum. No dark tarry stools. He does not report any recent fever or chills as well as no recent inadvertent weight loss. PHYSICAL EXAMINATION: CHEST: Good breath sounds bilaterally. HEART: Regular. EXTREMITIES: No lower extremity edema. Negative Homans sign. HEENT: No scleral icterus. No cervical lymphadenopathy. ABDOMEN: Soft. There is pain upon palpation of the epigastric region, as well as the right upper abdominal quadrant with voluntary guarding; however, no rebound or peritoneal signs. LABS: WBC 19.9, hemoglobin 12.1, hematocrit 36, platelets 231. Total bilirubin 1.4, AST 43, ALT 55, alkaline phosphatase 80, amylase 43, lipase 19. ASSESSMENT AND PLAN: 46-year-old male with multiple medical issues. It appears as though he did have influenza virus of this year with symptoms including a severe cough productive of sputum, as well as a nasal drainage, as well as nausea and vomiting. This most likely progressed to a pneumonia. He also was found to have urinary tract infection on admission most likely due to the dehydration. He also does have some pain in the epigastric region also, as well as right upper abdominal quadrant. Based on the CT scan as well as ultrasound there appears to be his some level of chronic calculus or acalculous cholecystitis based on dilatation of the gallbladder, as well as his symptoms. It could also be due to biliary sludge or small stones not detected on ultrasound. The natural history of gallbladder disease was explained to the patient and he has full understanding of the risks and benefits of surgery and would like to proceed with conservative management for now and decided on whether to proceeding with a laparoscopic cholecystectomy on this admission. He also does have a large hiatal hernia identified on the CT scan and has been symptomatic with reflux for greater than 20 years. It was also explained to him that he may want to look into this further with an upper endoscopy to evaluate the size of the hiatal hernia as well. If this is of significant size and continues to be symptomatic despite maximal medical therapy, he would be a candidate for a hiatal hernia repair, as well as a Bailey fundoplication. Before this we would get an esophageal manometric study to rule out any distal esophageal dysmotility disorder first. We will continue to monitor him. Job ID: [id number] Dictated Date: 07/06/2016 12:18:54 [employer] Date: 07/07/2016 11:20:38/mike
[2016-07-07 11:49] VITALS: BP 120/68
[2016-07-07] MEDS ORDERED: METR500T21 PO (12:33)
[2016-07-07] MEDS ORDERED: CHOL4PAC16 PO (12:33)
--- NOTE | 2016-07-07 12:34 | Discharge Instructions ---
Discharge Instructions Discharge Medications New, Converted or Re-Newed RX: Transmitted to Pharmacy New Medications: Cholestyramine (with Sugar) (Questran Packet) 4 Gm Powd.pack 4 GM PO TID PRN DIARRHEA #60 EACH Metronidazole (Metronidazole) 500 Mg Tablet 500 MG PO TID #30 TAB Continued Medications: Acetazolamide (Acetazolamide) 125 Mg Tablet 125 TAB DAILY #0 Albuterol Sulfate (Ventolin Hfa) 1 Puff Puff 2 PUFF IH DAILY 1 PUFF = 90 MCG Shortness of Breath PUFF Ascorbate Calcium (Vitamin C) 500 Mg Tablet 500 MG PO DAILY TAB Calcium Carbonate/Vitamin D3 (Calcium + Vitamin D Tablet) 1 Each Tablet 1 EACH PO DAILY TAB Lisinopril (Lisinopril) 40 Mg Tablet 40 DAILY #0 Metoprolol Succinate (Metoprolol Succinate) 25 Mg Tab.er.24h 25 MG PO DAILY TAB Omeprazole (Omeprazole) 20 Mg Capsule.dr 20 DAILY #0 Sertraline HCl (Sertraline HCl) 100 Mg Tablet 100 HS #0 Tramadol HCl (Tramadol HCl) 50 Mg Tablet 2 TAB Q8H PRN PAIN #0 Patient Instructions Goal/Follow Up Appt: Dr. Dejesus in one week Activity & Diet Discharge Diet: Soft Diet Activity as Tolerated: Yes Copy Copies To 1: NOELLE DEJESUS MD, MINDI DO Jul 07, 2016 12:34
--- NOTE | 2016-07-07 12:37 | Discharge Summary-Hospitalist ---
Diagnosis/Chief Complaint Date of Admission Jul 04, 2016 at 20:20 Date of Discharge Discharge Date: Jul 07, 2016 Admission Diagnosis Recent upper respiratory illness. 2.acute febrile illness. 3.frequent stools suggesting Clostridium difficile Discharge Diagnosis Assessment: Fever of 103.2 with diarrhea and elevated total bilirubin and distended gallbladder consistent with possible gallbladder source of infection but then ruled out by general surgery Dr. Thayer and results of C. difficile colitis was made likely due to Ceftin near 10 days of treatment completed last week Nausea Diarrhea Leukocytosis Reason Hospital Visit/Course The patient is a 46-year-old white male who presented to the emergency room in the late afternoon with complaints of fever, some chills, and diarrhea. He reported a temperature up to 103.2 at home. This was accompanied by chills and sweats. He reported that he and his family have all had an upper respiratory illness in the week prior to this presentation. They had taken antibiotics and thought that they got better. This episode then ensued. The rest of the family remains improved. The medication which his and he had taken was said to be Ceftin here. His past medical history is positive for hypertension Note from 07/07/16: Patient feels much better and diarrhea is well-controlled C. difficile colitis responding to Flagyl by mouth and I appreciate Dr. Thayer's management No gallbladder issues noted to be urgent per general surgery Patient was to go home today and go back to work tomorrow No fever, vital signs stable, pleasant, improved, at bedside Regular rate and rhythm, clear to auscultation bilaterally No tenderness in abdomen Hospital course: Patient had brief hospital course he was admitted for fever and leukocytosis of unknown source. He was placed on Rocephin and Dr. Thayer was consulted for possible gallbladder etiology with total bilirubin and abnormal ultrasound but that showed no evidence of any urgency with abnormality. C. difficile colitis then was diagnosed consistent with leukocytosis of 31,000 and recent Ceftin ear 10 day treatment for upper respiratory illness cities placed on Flagyl with good results and he was discharged in improved condition with close follow-up with Dr. Nunez recommended. Discharge Summary Discharge Physical Examination Allergies: Coded Allergies: No Known Drug Allergies (Unverified , 03/21/08) Vitals & I&Os Vital Signs Date Time Temp Pulse Resp B/P Pulse Ox O2 Delivery O2 Flow Rate FiO2 07/07/16 11:49 98.6 58 20 120/68 100 Room Air Hospital Course Labs (last 24 hrs) Laboratory Tests 07/07/16 05:50: Alanine Aminotransferase (ALT/SGPT) 28, Albumin 3.0L, Alkaline Phosphatase 66, Anion Gap 7, Aspartate Amino Transf (AST/SGOT) 13, BUN/Creatinine Ratio 11, Basophils # (Auto) 0.0, Basophils (%) (Auto) 0, Blood Urea Nitrogen 10, Calcium Level 8.6, Carbon Dioxide Level 20L, Chloride Level 116H, Creatinine 0.88, Eosinophils # (Auto) 0.1, Eosinophils (%) (Auto) 1, Estimat Glomerular Filtration Rate > 60, Glucose Level 106H, Hematocrit 35L, Hemoglobin 12.0L, Lymphocytes # (Auto) 1.3, Lymphocytes (%) (Auto) 14, Mean Corpuscular Hemoglobin 30, Mean Corpuscular Hemoglobin Concent 34, Mean Corpuscular Volume 87, Mean Platelet Volume 10.1, Monocytes # (Auto) 0.8, Monocytes (%) (Auto) 9, Neutrophils # (Auto) 7.4, Neutrophils (%) (Auto) 77H, Platelet Count 233, Potassium Level 3.4L, Red Blood Count 4.04L, Red Cell Distribution Width 13.7, Sodium Level 143, Total Bilirubin 0.3, Total Protein 5.2L, White Blood Count 9.6 Microbiology 07/04/16 Blood Culture - Preliminary, Resulted No growth 07/06/16 C. difficile DNA Amplification - Final, Complete 07/06/16 C. difficile GDH Antigen & Toxins - Final, Complete 07/04/16 Throat Culture - Final, Complete No Beta Strep isolated Pending Labs Laboratory Tests 07/07/16 05:50: Alanine Aminotransferase (ALT/SGPT) 28, Albumin 3.0, Alkaline Phosphatase 66, Anion Gap 7, Aspartate Amino Transf (AST/SGOT) 13, BUN/Creatinine Ratio 11, Basophils # (Auto) 0.0, Basophils (%) (Auto) 0, Blood Urea Nitrogen 10, Calcium Level 8.6, Carbon Dioxide Level 20, Chloride Level 116, Creatinine 0.88, Eosinophils # (Auto) 0.1, Eosinophils (%) (Auto) 1, Estimat Glomerular Filtration Rate > 60, Glucose Level 106, Hematocrit 35, Hemoglobin 12.0, Lymphocytes # (Auto) 1.3, Lymphocytes (%) (Auto) 14, Mean Corpuscular Hemoglobin 30, Mean Corpuscular Hemoglobin Concent 34, Mean Corpuscular Volume 87, Mean Platelet Volume 10.1, Monocytes # (Auto) 0.8, Monocytes (%) (Auto) 9, Neutrophils # (Auto) 7.4, Neutrophils (%) (Auto) 77, Platelet Count 233, Potassium Level 3.4, Red Blood Count 4.04, Red Cell Distribution Width 13.7, Sodium Level 143, Total Bilirubin 0.3, Total Protein 5.2, White Blood Count 9.6 Discharge Home Medications: Active Scripts Active Questran Packet (Cholestyramine (with Sugar)) 4 Gm Powd.pack 4 Gm PO TID PRN Metronidazole 500 Mg Tablet 500 Mg PO TID Reported Calcium + Vitamin D Tablet (Calcium Carbonate/Vitamin D3) 1 Each Tablet 1 Each PO DAILY Vitamin C (Ascorbate Calcium) 500 Mg Tablet 500 Mg PO DAILY Ventolin Hfa (Albuterol Sulfate) 1 Puff Puff 2 Puff IH DAILY 1 PUFF = 90 MCG Metoprolol Succinate 25 Mg Tab.er.24h 25 Mg PO DAILY Acetazolamide 125 Mg Tablet 125 Tab DAILY Lisinopril 40 Mg Tablet 40 DAILY Sertraline HCl 100 Mg Tablet 100 HS Omeprazole 20 Mg Capsule.dr 20 DAILY Tramadol HCl 50 Mg Tablet 2 Tab Q8H PRN Instructions to patient/family Please see electonic discharge instructions given to patient. Clinical Quality Measures DVT/VTE Risk/Contraindication: Risk Factor Score Per Nursin RFS Level Per Nursing on Admit: 4+=Very High STEPHANIE LAN DO Jul 07, 2016 12:37
== END 2016-07-07 15:21 | disposition home or self-care (01) | DRG 372 ==
LOC: EDUNIT# 18:21 → ER 18:22 → 4TH 20:20
PROVIDERS: ADMIT Internal Medicine; ATTEND Internal Medicine
DX: A04.7 Enterocolitis due to Clostridium difficile (principal); N20.1 Calculus of ureter; E86.0 Dehydration; I10 Essential (primary) hypertension; K21.9 Gastro-esophageal reflux disease without esophagitis; F32.9 Major depressive disorder, single episode, unspecified; F17.210 Nicotine dependence, cigarettes, uncomplicated; K44.9 Diaphragmatic hernia without obstruction or gangrene; K82.8 Other specified diseases of gallbladder
CPT/HCPCS: 36415; 71250; 74176; 76700; 80053; 81000; 82150; 83605; 83690; 85007; 85025; 85027; 86308; 87040; 87324; 87430; 87449; 87493; 87804; 96361; 96365; 96375

== ENCOUNTER 2016-09-05 09:19 | Emergency (ER) | payer BC ==
[~2016-09-05] VITALS: Ht 177.8 cm; Wt 90.7 kg
[~2016-09-05 09:19] MED LIST changes: +ACET125T2; +ASCO-262 PO; +CALC-140 PO; +CHOL4PAC16 PO; +LISI40TA; +METO-270 PO; +METR500T21 PO; +OMEP20CA12; +RT-ALBUINH IH; +SERT100T8; +TRAM50TA2; +VITAMIN D CALCIUM
--- NOTE | 2016-09-05 10:41 | ED GU-Male ---
General Chief Complaint: Abdominal/GI Problems Stated Complaint: ABDOMINAL/BACK PAIN Nursing Triage Note: c/o right sided abd pain with radiation through to his back. Onset 0830 this morning. Mild nausea present. Source: patient Exam Limitations: no limitations History of Present Illness Time seen by provider: 10:40 Initial Comments To ER with right sided low back pain that radiates through to the front. He had similar pain years ago with a kidney stone. He did have some nausea this morning but none currently. Currently he rates his pain as a 2. He states that he feels as though he needs to urinate but is unable to do so. Timing/Duration: this morning Severity/Quality: moderate Location: RLQ Radiation: none Activities at Onset: none Prior Genitourinary Problems: none Associated Symptoms: dysuria Allergies and Home Medications Allergies Coded Allergies: No Known Drug Allergies (Unverified , 03/21/08) Home Medications Acetazolamide 125 Mg Tablet, 125 TAB DAILY, #0 (Reported) Albuterol Sulfate 1 Puff Puff, 2 PUFF IH DAILY, (Reported) 1 PUFF = 90 MCG Ascorbate Calcium 500 Mg Tablet, 500 MG PO DAILY, (Reported) Calcium Carbonate/Vitamin D3 1 Each Tablet, 1 EACH PO DAILY, (Reported) Cholestyramine (with Sugar) 4 Gm Powd.pack, 4 GM PO TID PRN for DIARRHEA, #60 Prescribed by: STEPHANIE LAN on 07/07/16 1233 Hydrocodone/Acetaminophen 1 Each Tablet, 1 EACH PO Q4H PRN for PAIN-MODERATE TO SEVERE, #20 Prescribed by: JESSICA ZUNIGA on 09/05/16 1129 Ibuprofen 800 Mg Tablet, 800 MG PO Q8H PRN for PAIN, #30 Prescribed by: JESSICA ZUNIGA on 09/05/16 1129 Lisinopril 40 Mg Tablet, 40 DAILY, #0 (Reported) Metoprolol Succinate 25 Mg Tab.er.24h, 25 MG PO DAILY, (Reported) Metronidazole 500 Mg Tablet, 500 MG PO TID, #30 Prescribed by: STEPHANIE LAN on 07/07/16 1233 Omeprazole 20 Mg Capsule.dr, 20 DAILY, #0 (Reported) Sertraline HCl 100 Mg Tablet, 100 HS, #0 (Reported) Sulfamethoxazole/Trimethoprim 1 Each Tablet, 1 EACH PO BID, #14 Prescribed by: JESSICA ZUNIGA on 09/05/16 1129 Tamsulosin HCl 0.4 Mg Cap, 0.4 MG PO DAILY, #14 Prescribed by: JESSICA ZUNIGA on 09/05/16 1129 Tramadol HCl 50 Mg Tablet, 2 TAB Q8H PRN for PAIN, #0 (Reported) Constitutional: see HPI EENTM: see HPI Respiratory: no symptoms reported Cardiovascular: no symptoms reported Gastrointestinal: abdominal pain Genitourinary: see HPI, dysuria Musculoskeletal: no symptoms reported Skin: no symptoms reported Psychiatric/Neurological: No Symptoms Reported Endocrine: No Symptoms Reported Hematologic/Lymphatic: No Symptoms Reported Past Abqubmc-Drlkgl-Xakbxa Hx Patient Social History Type Used: Cigarettes Recent Foreign Travel: No Contact w/Someone Who Travel: No Recent Infectious Disease Expo: No Recent Hopitalizations: No Seasonal Allergies Seasonal Allergies: No Surgeries HX Surgeries: Yes (FACIAL RECONSTRUCTION SURGERY; KIDNEY STONE REMOVAL) Surgeries: Appendectomy, Renal Respiratory Hx Respiratory Disorders: No Cardiovascular Hx Cardiac Disorders: Yes Cardiac Disorders: Hypertension Neurological Hx Neurological Disorders: No Reproductive System Hx Reproductive Disorders: No Sexually Transmitted Disease: No Genitourinary Hx Genitourinary Disorders: Yes (KIDNEY STONE) Genitourinary Disorders: Kidney Stones Gastrointestinal Hx Gastrointestinal Disorders: Yes Gastrointestinal Disorders: Gastroesophageal Reflux Musculoskeletal Hx Musculoskeletal Disorders: No Endocrine Hx Endocrine Disorders: No HEENT HX ENT Disorders: No Cancer Hx Cancer: No Psychosocial Hx Psychiatric Problems: Yes Behavioral Health Disorders: Depression Integumentary HX Skin/Integumentary Disorder: No Blood Transfusions Hx Blood Disorders: No Adverse Reaction to a Blood Tr: No Family Medical History Family Medial History: Completed stroke 19 MOTHER Diabetes mellitus 19 MOTHER Headache disorder 19 FATHER Hypertension 19 FATHER 19 MOTHER G8 BROTHER G8 BROTHER G8 BROTHER G8 BROTHER G8 SISTER G8 SISTER G8 SISTER G8 SISTER Physical Exam Vital Signs Vital Sign - Last 12Hours 09/05/16 10:26 Temp 97.8 Pulse 70 Resp 16 B/P (MAP) 130/92 Pulse Ox 99 O2 Delivery Room Air Capillary Refill : Less Than 3 Seconds General Appearance: WD/WN, no apparent distress HEENT: PERRL/EOMI, normal ENT inspection Neck: non-tender, full range of motion Respiratory: no respiratory distress, no accessory muscle use Gastrointestinal: normal bowel sounds, non tender, soft Extremities: normal range of motion, non-tender, normal inspection Neurologic/Psychiatric: alert, normal mood/affect, oriented x 3 Skin: normal color, warm/dry Progress/Results/Core Measures Results/Orders Lab Results Laboratory Tests Test 09/05/16 11:10 Range/Units White Blood Count 12.8 H 4.3-11.0 10^3/uL Red Blood Count 5.04 4.35-5.85 10^6/uL Hemoglobin 14.9 13.3-17.7 G/DL Hematocrit 43 40-54 % Mean Corpuscular Volume 86 80-99 FL Mean Corpuscular Hemoglobin 30 25-34 PG Mean Corpuscular Hemoglobin Concent 34 32-36 G/DL Red Cell Distribution Width 14.1 10.0-14.5 % Platelet Count 299 130-400 10^3/uL Mean Platelet Volume 10.2 7.4-10.4 FL Neutrophils (%) (Auto) 82 H 42-75 % Lymphocytes (%) (Auto) 10 L 12-44 % Monocytes (%) (Auto) 7 0-12 % Eosinophils (%) (Auto) 1 0-10 % Basophils (%) (Auto) 0 0-10 % Neutrophils # (Auto) 10.5 H 1.8-7.8 X 10^3 Lymphocytes # (Auto) 1.3 1.0-4.0 X 10^3 Monocytes # (Auto) 0.9 0.0-1.0 X 10^3 Eosinophils # (Auto) 0.1 0.0-0.3 10^3/uL Basophils # (Auto) 0.0 0.0-0.1 10^3/uL My Orders Orders - JESSICA ZUNIGA APRN Cbc With Automated Diff (09/05/16 10:36) Comprehensive Metabolic Panel (09/05/16 10:36) Ua Culture If Indicated (09/05/16 10:36) Lipase (09/05/16 10:36) Saline Lock/Iv-Start (09/05/16 10:36) Ct Abd/Pelvis Wo(Kidney Stone) (09/05/16 10:39) Ketorolac Injection (Toradol Injection) (09/05/16 11:30) Ns Iv 1000 Ml (Sodium Chloride 0.9%) (09/05/16 11:30) Vital Signs/I&O Vital Sign - Last 12Hours 09/05/16 10:26 Temp 97.8 Pulse 70 Resp 16 B/P (MAP) 130/92 Pulse Ox 99 O2 Delivery Room Air Blood Pressure Mean: 105 Diagnostic Imaging Diagonstic Imaging: Xray, CT Comments NAME: SUZAN LOU [facility] REC#: [id number] PT STATUS: REG ER : 1970 PHYSICIAN: JESSICA ZUNIGA APRN ADMIT DATE: 09/05/16/ER Draft Date of Exam:09/05/16 CT ABD/PELVIS WO(KIDNEY STONE) PROCEDURE: CT urinary tract, rule out kidney stone. TECHNIQUE: Multiple contiguous axial images were obtained through the abdomen and pelvis without the use of intravenous contrast. INDICATION: Right flank pain. FINDINGS: There is mild hydroureteronephrosis on the right side secondary to an obstructive 2 mm stone in the distal right ureter, about 1 cm proximal to the bladder. No other ureteric stone is seen. There is a nonobstructive 5 mm stone in the upper pole of the right kidney. No left kidney or left ureteric stones. No bladder stones. Scattered diverticuli are seen. No diverticulitis. Sutures along the cecum are seen. The liver, gallbladder, spleen, pancreas, and adrenal glands appear unremarkable. There is a moderate to large hiatal hernia seen. No significant free fluid or fluid collection in the abdomen or pelvis is seen. The osseous structures demonstrates a prominent subchondral cyst in the anterior aspect of the acetabulum and other degenerative changes in both hip joints. The SI joints demonstrate mild degenerative sclerotic changes. IMPRESSION: 1. There is mild right hydroureteronephrosis secondary to a distal 2 mm right ureteric stone about 1 cm proximal to the UVJ. 2. Nonobstructive stone in the upper pole of the right kidney measuring 5 mm. 3. Diverticulosis. No diverticulitis. 4. Bilateral elfh-du-lugvqlpu hip osteoarthritis. Dictated on workstation # [id number] Dict: 09/05/16 1112 Trans: 09/05/16 1125 [id number] Interpreted by: CLIFFORD GASTON MD Electronically signed by: Departure Impression Impression: Primary Impression: Right ureteral stone Disposition: 01 HOME, SELF-CARE Condition: Stable Departure-Patient Inst. Decision time for Depature: 11:26 Referrals: NOELLE DEJESUS MD (PCP/Family) Primary Care Physician DEMETRIA CAMARILLO MD Patient Instructions: Kidney Stones (DC) Add. Discharge Instructions: 1. Drink plenty of fluids 2. Return to ER for any intolerable pain 3. Follow-up with your doctor next week 4. Strain all of your urine. He will see the stone if it passes. 5. If no improvement in 1 week or you have not passed the stone, call Dr. Camarillo. All discharge instructions reviewed with patient and/or family. Voiced understanding. Scripts Ibuprofen (Ibuprofen) 800 Mg Tablet 800 MG PO Q8H Y for PAIN, #30 TAB Prov: JESSICA ZUNIGA APRN 09/05/16 Hydrocodone/Acetaminophen ([place] 5-325 Tablet) 1 Each Tablet 1 EACH PO Q4H Y for PAIN-MODERATE TO SEVERE, #20 TAB Prov: JESSICA ZUNIGA APRN 09/05/16 Sulfamethoxazole/Trimethoprim (Bactrim Ds Tablet) 1 Each Tablet 1 EACH PO BID, #14 TAB Prov: JESSICA ZUNIGA APRN 09/05/16 Tamsulosin HCl (Flomax) 0.4 Mg Cap 0.4 MG PO DAILY, #14 CAP Prov: JESSICA ZUNIGA APRN 09/05/16 Copy Copies To 1: NOELLE DEJESUS MD, PETER J APRN September 05, 2016 10:41
--- NOTE | 2016-09-05 11:25 | Diagnostic Imaging Report ---
PROCEDURE: CT urinary tract, rule out kidney stone. TECHNIQUE: Multiple contiguous axial images were obtained through the abdomen and pelvis without the use of intravenous contrast. INDICATION: Right flank pain. FINDINGS: There is mild hydroureteronephrosis on the right side secondary to an obstructive 2 mm stone in the distal right ureter, about 1 cm proximal to the bladder. No other ureteric stone is seen. There is a nonobstructive 5 mm stone in the upper pole of the right kidney. No left kidney or left ureteric stones. No bladder stones. Scattered diverticuli are seen. No diverticulitis. Sutures along the cecum are seen. The liver, gallbladder, spleen, pancreas, and adrenal glands appear unremarkable. There is a moderate to large hiatal hernia seen. No significant free fluid or fluid collection in the abdomen or pelvis is seen. The osseous structures demonstrates a prominent subchondral cyst in the anterior aspect of the acetabulum and other degenerative changes in both hip joints. The SI joints demonstrate mild degenerative sclerotic changes. IMPRESSION: 1. There is mild right hydroureteronephrosis secondary to a distal 2 mm right ureteric stone about 1 cm proximal to the UVJ. 2. Nonobstructive stone in the upper pole of the right kidney measuring 5 mm. 3. Diverticulosis. No diverticulitis. 4. Bilateral luaj-no-gigxoxib hip osteoarthritis. Dictated by: Dictated on workstation # [id number]
[2016-09-05] MEDS ORDERED: SULF1TAB35 PO (11:29)
[2016-09-05] MEDS ORDERED: TAMS0.4C98 PO (11:29)
[2016-09-05] MEDS ORDERED: IBUP-1780 PO (11:29)
[2016-09-05] MEDS ORDERED: HYDR-757 PO (11:29)
[2016-09-05 11:30] LABS: BASOPHILS % (AUTO) 0 % (0-10); EOSINOPHILS # (AUTO) 0.1 10^3/uL (0.0-0.3); EOSINOPHILS % (AUTO) 1 % (0-10); LYMPHOCYTES # (AUTO) 1.3 X 10^3 (1.0-4.0); LYMPHOCYTES % (AUTO) 10 % (12-44); MEAN CORPUSCULAR HEMOGLOBIN 30 PG (25-34); MEAN CORPUSCULAR HGB CONC 34 G/DL (32-36); MEAN CORPUSCULAR VOLUME 86 FL (80-99); MEAN PLATELET VOLUME 10.2 FL (7.4-10.4); MONOCYTES # (AUTO) 0.9 X 10^3 (0.0-1.0); MONOCYTES % (AUTO) 7 % (0-12); NEUTROPHILS # (AUTO) 10.5 X 10^3 (1.8-7.8); NEUTROPHILS % (AUTO) 82 % (42-75); PLATELET COUNT 299 10^3/uL (130-400); RED BLOOD COUNT 5.04 10^6/uL (4.35-5.85); RED CELL DISTRIBUTION WIDTH 14.1 % (10.0-14.5); WHITE BLOOD COUNT 12.8 10^3/uL (4.3-11.0)
[2016-09-05] MEDS ORDERED: NS IV 1000 ML 1,000 ML IV SCH (11:30)
[2016-09-05] MEDS ORDERED: KETOROLAC 30 MG/ML VIAL IVP ONE (11:30)
[2016-09-05 11:55] LABS: ALANINE AMINOTRANSFERASE 20 U/L (0-55); ALBUMIN 4.4 G/DL (3.2-4.5); ANION GAP 8 MMOL/L (5-14); ASPARTATE AMINO TRANSFERASE 17 U/L (5-34); BILIRUBIN,TOTAL 0.4 MG/DL (0.1-1.0); BLOOD UREA NITROGEN 21 MG/DL (7-18); BUN/CREATININE RATIO 18; CALCIUM 9.4 MG/DL (8.5-10.1); CARBON DIOXIDE 26 MMOL/L (21-32); CHLORIDE 106 MMOL/L (98-107); CREATININE SERUM 1.19 MG/DL (0.60-1.30); GFR ESTIMATED > 60; GLUCOSE 100 MG/DL (70-105); LIPASE 28 U/L (8-78); POTASSIUM 3.7 MMOL/L (3.6-5.0); SODIUM 140 MMOL/L (135-145)
[2016-09-05 12:33] VITALS: BP 128/88
[2016-09-05 12:34] LABS: BILIRUBIN,URINE NEGATIVE (NEGATIVE); KETONES,URINE NEGATIVE (NEGATIVE); LEUKOCYTE ESTERASE ,URINE NEGATIVE (NEGATIVE); NITRITE,URINE NEGATIVE (NEGATIVE); PH,URINE 7 (5-9); PROTEIN,URINE NEGATIVE (NEGATIVE); UROBILINOGEN,URINE 1 MG/DL (NORMAL)
[2016-09-05 12:47] LABS: SQUAMOUS EPITHELIAL CELL,UR RARE /HPF
== END 2016-09-05 12:33 | disposition home or self-care (01) ==
LOC: EDUNIT# 09:19 → ER 09:21
DX: N20.1 Calculus of ureter (principal); K57.30 Diverticulosis of large intestine without perforation or abscess without bleeding; M16.0 Bilateral primary osteoarthritis of hip; I10 Essential (primary) hypertension; Z79.899 Other long term (current) drug therapy
CPT/HCPCS: 36415; 74176; 80053; 81000; 83690; 85025; 96374

== ENCOUNTER 2018-03-27 10:48 | Emergency (ER) | payer BC ==
[~2018-03-27] VITALS: Ht 180.3 cm; Wt 117.9 kg
[~2018-03-27 10:48] MED LIST changes: +HYDR-4226 PO; +IBUP-1780 PO; -METO-270 PO; +METO-387 PO; +METR-197 PO; -METR500T21 PO; +SULF1TAB35 PO; +TAMS0.4C98 PO
--- NOTE | 2018-03-27 11:12 | ED Abdominal Pain ---
General Stated Complaint: ABD PAIN Source of Information: Patient Exam Limitations: No Limitations History of Present Illness Date Seen by Provider: Mar 27, 2018 Time Seen by Provider: 11:00 Initial Comments Patient is a 47-year-old male who presents to the emergency room with right lower quadrant abdominal pain/flank pain that started 2 days ago. He reports that the pain radiates to his right groin area. He denies fevers, nausea, vomiting, diarrhea, any urinary symptoms. States that he's had several kidney stones in the past. Timing/Duration: 2-3 Days Severity/Quality: Sharp Location: RLQ, Flank Radiation: Groin Associated Symptoms: Denies Symptoms Allergies and Home Medications Allergies Coded Allergies: No Known Drug Allergies (Unverified , 03/21/08) Home Medications Acetazolamide 125 Mg Tablet, 125 TAB DAILY, (Reported) Albuterol Sulfate 1 Puff Puff, 2 PUFF IH DAILY, (Reported) 1 PUFF = 90 MCG Ascorbate Calcium 500 Mg Tablet, 500 MG PO DAILY, (Reported) Calcium Carbonate/Vitamin D3 1 Each Tablet, 1 EACH PO DAILY, (Reported) Cholestyramine (with Sugar) 4 Gm Powd.pack, 4 GM PO TID PRN for DIARRHEA Prescribed by: STEPHANIE LAN on 07/07/16 1233 Hydrocodone Bit/Acetaminophen 1 Tab Tab, 1-2 EACH PO Q6H PRN for PAIN-MODERATE Prescribed by: FERNANDO ROME on 03/27/18 1228 Hydrocodone/Acetaminophen 1 Each Tablet, 1 EACH PO Q4H PRN for PAIN-MODERATE TO SEVERE Prescribed by: JESSICA ZUNIGA on 09/05/16 1129 Ibuprofen 800 Mg Tablet, 800 MG PO Q8H PRN for PAIN Prescribed by: JESSICA ZUNIGA on 09/05/16 1129 Lisinopril 40 Mg Tablet, 40 DAILY, (Reported) Metoprolol Succinate 25 Mg Tab.er.24h, 25 MG PO DAILY, (Reported) Metronidazole 500 Mg Tablet, 500 MG PO TID Prescribed by: STEPHANIE LAN on 07/07/16 1233 Omeprazole 20 Mg Capsule.dr, 20 DAILY, (Reported) Ondansetron HCl 4 Mg Tab, 4 MG PO Q4H PRN for NAUSEA/VOMITING Prescribed by: FERNANDO ROME on 03/27/18 1228 Sertraline HCl 100 Mg Tablet, 100 HS, (Reported) Sulfamethoxazole/Trimethoprim 1 Each Tablet, 1 EACH PO BID Prescribed by: JESSICA ZUNIGA on 09/05/16 1129 Sulfamethoxazole/Trimethoprim 1 Each Tablet, 1 EACH PO BID Prescribed by: FERNANDO ROME on 03/27/18 1228 Tamsulosin HCl 0.4 Mg Cap, 0.4 MG PO DAILY Prescribed by: JESSICA ZUNIGA on 09/05/16 1129 Tramadol HCl 50 Mg Tablet, 2 TAB Q8H PRN for PAIN, (Reported) Patient Home Medication List Home Medication List Reviewed: Yes Review of Systems Review of Systems Constitutional: no symptoms reported, see HPI Gastrointestinal: See HPI, Abdominal Pain (RLQ/flank) Genitourinary: No Symptoms Reported, See HPI All Other Systems Reviewed Negative Unless Noted: Yes Past Scxmidx-Kvuhwc-Ijpsux Hx Past Med/Social Hx: Reviewed Nursing Past Med/Soc Hx Patient Social History Type Used: Cigarettes Former Smoker, Quit: Jun 24, 2016 Recent Hopitalizations: No Seasonal Allergies Seasonal Allergies: No Past Medical History Surgeries: Yes (FACIAL RECONSTRUCTION SURGERY; KIDNEY STONE REMOVAL) Appendectomy, Renal Respiratory: No Cardiac: No Hypertension Neurological: No Reproductive Disorders: No Sexually Transmitted Disease: No Genitourinary: Yes Kidney Stones Gastrointestinal: Yes Gastroesophageal Reflux Musculoskeletal: No Endocrine: No HEENT: No Cancer: No Psychosocial: Yes Depression Integumentary: No Blood Disorders: No Adverse Reaction/Blood Tranf: No Family Medical History Reviewed Nursing Family Hx Completed stroke 19 MOTHER Diabetes mellitus 19 MOTHER Headache disorder 19 FATHER Hypertension 19 FATHER 19 MOTHER G8 BROTHER G8 BROTHER G8 BROTHER G8 BROTHER G8 SISTER G8 SISTER G8 SISTER G8 SISTER Physical Exam Vital Signs Vital Signs - First Documented 03/27/18 10:55 Temp 97.0 Pulse 70 Resp 18 B/P (MAP) 138/94 (109) Pulse Ox 97 O2 Delivery Room Air Capillary Refill : Height/Weight/BMI Height: 5'10.00" Weight: 200lbs. 0.0oz. [id number]; 31.4 BMI Method:Estimated General Appearance: WD/WN, no apparent distress Respiratory: chest non-tender, lungs clear, normal breath sounds, no respiratory distress, no accessory muscle use Cardiovascular: normal peripheral pulses, regular rate, rhythm, no edema, no gallop, no JVD, no murmur Gastrointestinal: normal bowel sounds, soft, no organomegaly, no pulsatile mass , guarding, tenderness (right lower quadrant tenderness ) Neurologic/Psychiatric: alert, normal mood/affect, oriented x 3 Skin: normal color, warm/dry Progress/Results/Core Measures Results/Orders Lab Results Laboratory Tests Test 03/27/18 11:15 03/27/18 13:00 Range/Units White Blood Count 7.0 4.3-11.0 10^3/uL Red Blood Count 3.88 L 4.35-5.85 10^6/uL Hemoglobin 10.2 L 13.3-17.7 G/DL Hematocrit 31 L 40-54 % Mean Corpuscular Volume 80 80-99 FL Mean Corpuscular Hemoglobin 26 25-34 PG Mean Corpuscular Hemoglobin Concent 33 32-36 G/DL Red Cell Distribution Width 14.2 10.0-14.5 % Platelet Count 349 130-400 10^3/uL Mean Platelet Volume 9.7 7.4-10.4 FL Neutrophils (%) (Auto) 66 42-75 % Lymphocytes (%) (Auto) 21 12-44 % Monocytes (%) (Auto) 11 0-12 % Eosinophils (%) (Auto) 2 0-10 % Basophils (%) (Auto) 0 0-10 % Neutrophils # (Auto) 4.6 1.8-7.8 X 10^3 Lymphocytes # (Auto) 1.5 1.0-4.0 X 10^3 Monocytes # (Auto) 0.7 0.0-1.0 X 10^3 Eosinophils # (Auto) 0.2 0.0-0.3 10^3/uL Basophils # (Auto) 0.0 0.0-0.1 10^3/uL Sodium Level 140 135-145 MMOL/L Potassium Level 4.4 3.6-5.0 MMOL/L Chloride Level 111 H 98-107 MMOL/L Carbon Dioxide Level 20 L 21-32 MMOL/L Anion Gap 9 5-14 MMOL/L Blood Urea Nitrogen 24 H 7-18 MG/DL Creatinine 1.27 0.60-1.30 MG/DL Estimat Glomerular Filtration Rate > 60 BUN/Creatinine Ratio 19 Glucose Level 117 H 70-105 MG/DL Calcium Level 9.2 8.5-10.1 MG/DL Corrected Calcium 9.1 8.5-10.1 MG/DL Total Bilirubin 0.3 0.1-1.0 MG/DL Aspartate Amino Transf (AST/SGOT) 17 5-34 U/L Alanine Aminotransferase (ALT/SGPT) 14 0-55 U/L Alkaline Phosphatase 88 40-136 U/L Total Protein 6.7 6.4-8.2 GM/DL Albumin 4.1 3.2-4.5 GM/DL Amylase Level 32 25-125 U/L Lipase 23 8-78 U/L Urine Color YELLOW Urine Clarity CLEAR Urine pH 5 5-9 Urine Specific [place] 1.025 H 1.016-1.022 Urine Protein 1+ H NEGATIVE Urine Glucose (UA) NEGATIVE NEGATIVE Urine Ketones NEGATIVE NEGATIVE Urine Nitrite NEGATIVE NEGATIVE Urine Bilirubin NEGATIVE NEGATIVE Urine Urobilinogen NORMAL NORMAL MG/DL Urine Leukocyte Esterase NEGATIVE NEGATIVE Urine RBC (Auto) 5+ H NEGATIVE Urine RBC 10-25 H /HPF Urine WBC NONE /HPF Urine Squamous Epithelial Cells RARE /HPF Urine Crystals NONE /LPF Urine Bacteria NEGATIVE /HPF Urine Casts NONE /LPF Urine Mucus NEGATIVE /LPF Urine Culture Indicated NO My Orders Orders - FERNANDO ROME Comprehensive Metabolic Panel (03/27/18 11:01) Lipase (03/27/18 11:01) Amylase (03/27/18 11:01) Ua Culture If Indicated (03/27/18 11:01) Saline Lock/Iv-Start (03/27/18 11:01) Cbc With Automated Diff (03/27/18 11:01) Ct Abd/Pelvis Wo(Kidney Stone) (03/27/18 11:01) Abdomen/Kub 1view (03/27/18 11:01) Fentanyl Injection (Sublimaze Injection (03/27/18 11:15) Ns Iv 1000 Ml (Sodium Chloride 0.9%) (03/27/18 11:15) Ketorolac Injection (Toradol Injection) (03/27/18 12:15) Medications Given in ED Vital Signs/I&O 03/27/18 03/27/18 10:55 13:05 Temp 97.0 97.0 Pulse 70 72 Resp 18 18 B/P (MAP) 138/94 (109) 130/93 (105) Pulse Ox 97 98 O2 Delivery Room Air Room Air 03/28/18 00:00 Intake Total 1000 ml Balance 1000 ml Progress Progress Note : Time: 12:25 Progress Note I have seen and evaluated the patient. I've informed him of his imaging studies. He has been a patient of Dr. Camarillo in the past for kidney stone removal. He agrees with plan to follow-up with his office later today. Return precautions were given. Diagnostic Imaging Diagonstic Imaging: Xray, CT Plain Films/CT/US/NM/MRI: abdomen, pelvis Comments NAME: SUZAN LOU [facility] REC#: [id number] PT STATUS: DEP ER : 1970 PHYSICIAN: FERNANDO ROME ADMIT DATE: 03/27/18/ER Signed Date of Exam: 03/27/18 ABDOMEN/KUB 1VIEW INDICATION: Right lower quadrant pain radiating to the right flank. TIME OF EXAMINATION: 12:12 PM. FINDINGS: Punctate calcific densities overlie both renal shadows, consistent with bilateral renal calculi. The bowel gas pattern is unremarkable. A 6 mm calcific density overlies the right sacrum at approximately the S3 level, consistent with a ureteric calculus. No calculi along the distribution of the left ureter are seen. IMPRESSION: Bilateral renal calculi as well as a distal right ureteral calculus. Dictated by: Dictated on workstation # [id number] Dict: 03/27/18 1155 Trans: 03/27/18 1527 Interpreted by: TIFFANIE MALAGON MD Electronically signed by: TIFFANIE MALAGON MD 03/27/18 1527 NAME: SUZAN LOU [facility] REC#: [id number] PT STATUS: DEP ER : 1970 PHYSICIAN: FERNANDO ROME ADMIT DATE: 03/27/18/ER Signed Date of Exam: 03/27/18 CT ABD/PELVIS WO(KIDNEY STONE) PROCEDURE: CT urinary tract, rule out kidney stone. TECHNIQUE: Multiple contiguous axial images were obtained through the abdomen and pelvis without the use of intravenous contrast. INDICATION: Right lower quadrant pain. COMPARISON: Prior CT from 09/05/2016. FINDINGS: The lung bases are clear. There is a large hiatal hernia. No discrete liver mass is identified. The gallbladder is unremarkable. There is no biliary ductal dilatation. The pancreas and spleen are unremarkable. No adrenal mass is identified. Bilateral nonobstructing nephrolithiasis is noted with multiple approximately 2-3 mm calculi present. There is hydronephrosis and hydroureter on the right. The dilated right ureter is traced into the pelvis where there is a 6 mm calculus present. This is several centimeters above the UVJ. Periureteral inflammatory stranding is noted. The left ureter is unremarkable. The bladder is unremarkable. The small and large bowel loops are of normal caliber. There is no ascites. The bony structures are nonacute. IMPRESSION: Bilateral nonobstructing nephrolithiasis. In addition, there is a 6 mm calculus in the distal right ureter producing moderate hydroureteronephrosis and inflammatory stranding. Dictated by: Dictated on workstation # [id number] Dict: 03/27/18 1150 Trans: 03/27/18 1527 Interpreted by: TIFFANIE MALAGON MD Electronically signed by: TIFFANIE MALAGON MD 03/27/18 1527 Reviewed: Reviewed by Me Departure Impression Primary Impression: Kidney stone Disposition: 01 HOME, SELF-CARE Condition: Stable/Unchanged Departure-Patient Inst. Decision time for Depature: 12:25 Referrals: NOELLE DEJESUS MD (PCP/Family) Primary Care Physician DEMETRIA CAMARILLO MD Patient Instructions: Kidney Stones (DC) Add. Discharge Instructions: Take medications as directed. Call Dr. Camarillo's office today for an appointment time. Drink plenty of clear liquids to stay hydrated. Strain all urine and if you should pass a stone take it with you to Dr. Camarillo's office. Follow-up with your primary care provider as needed. Return back to the emergency room for any worsening symptoms or concerns as needed. Scripts Ondansetron HCl (Zofran) 4 Mg Tab 4 MG PO Q4H PRN for NAUSEA/VOMITING, #14 TAB Prov: FERNANDO ROME 03/27/18 Hydrocodone Bit/Acetaminophen (Hydrocodone/Acetaminophen 5/325mg Tablet) 1 Tab Tab 1-2 EACH PO Q6H PRN for PAIN-MODERATE MDD 10, #20 TAB Prov: FERNANDO ROME 03/27/18 Sulfamethoxazole/Trimethoprim (Bactrim Ds Tablet) 1 Each Tablet 1 EACH PO BID for 7 Days, #14 TAB Prov: FERNANDO ROME 03/27/18 FERNANDO ROME Mar 27, 2018 11:12
[2018-03-27] MEDS ORDERED: NS IV 1000 ML 1,000 ML IV SCH (11:15)
[2018-03-27] MEDS ORDERED: fentaNYL INJECTION 100 MCG/2 ML AMP IVP ONE (11:15)
[2018-03-27 11:25] LABS: BASOPHILS % (AUTO) 0 % (0-10); EOSINOPHILS # (AUTO) 0.2 10^3/uL (0.0-0.3); EOSINOPHILS % (AUTO) 2 % (0-10); HEMATOCRIT 31 % (40-54); HEMOGLOBIN 10.2 G/DL (13.3-17.7); LYMPHOCYTES # (AUTO) 1.5 X 10^3 (1.0-4.0); LYMPHOCYTES % (AUTO) 21 % (12-44); MEAN CORPUSCULAR HEMOGLOBIN 26 PG (25-34); MEAN CORPUSCULAR HGB CONC 33 G/DL (32-36); MEAN CORPUSCULAR VOLUME 80 FL (80-99); MEAN PLATELET VOLUME 9.7 FL (7.4-10.4); MONOCYTES # (AUTO) 0.7 X 10^3 (0.0-1.0); MONOCYTES % (AUTO) 11 % (0-12); NEUTROPHILS # (AUTO) 4.6 X 10^3 (1.8-7.8); NEUTROPHILS % (AUTO) 66 % (42-75); PLATELET COUNT 349 10^3/uL (130-400); RED BLOOD COUNT 3.88 10^6/uL (4.35-5.85); RED CELL DISTRIBUTION WIDTH 14.2 % (10.0-14.5)
[2018-03-27 11:49] LABS: ALANINE AMINOTRANSFERASE 14 U/L (0-55); ALBUMIN 4.1 GM/DL (3.2-4.5); ALKALINE PHOSPHATASE 88 U/L (40-136); AMYLASE 32 U/L (25-125); BILIRUBIN,TOTAL 0.3 MG/DL (0.1-1.0); BUN/CREATININE RATIO 19; CALCIUM 9.2 MG/DL (8.5-10.1); CARBON DIOXIDE 20 MMOL/L (21-32); CHLORIDE 111 MMOL/L (98-107); CREATININE SERUM 1.27 MG/DL (0.60-1.30); GFR ESTIMATED > 60; GLUCOSE 117 MG/DL (70-105); LIPASE 23 U/L (8-78); POTASSIUM 4.4 MMOL/L (3.6-5.0); SODIUM 140 MMOL/L (135-145); TOTAL PROTEIN 6.7 GM/DL (6.4-8.2)
--- NOTE | 2018-03-27 11:55 | Diagnostic Imaging Report ---
PROCEDURE: CT urinary tract, rule out kidney stone. TECHNIQUE: Multiple contiguous axial images were obtained through the abdomen and pelvis without the use of intravenous contrast. INDICATION: Right lower quadrant pain. COMPARISON: Prior CT from 09/05/2016. FINDINGS: The lung bases are clear. There is a large hiatal hernia. No discrete liver mass is identified. The gallbladder is unremarkable. There is no biliary ductal dilatation. The pancreas and spleen are unremarkable. No adrenal mass is identified. Bilateral nonobstructing nephrolithiasis is noted with multiple approximately 2-3 mm calculi present. There is hydronephrosis and hydroureter on the right. The dilated right ureter is traced into the pelvis where there is a 6 mm calculus present. This is several centimeters above the UVJ. Periureteral inflammatory stranding is noted. The left ureter is unremarkable. The bladder is unremarkable. The small and large bowel loops are of normal caliber. There is no ascites. The bony structures are nonacute. IMPRESSION: Bilateral nonobstructing nephrolithiasis. In addition, there is a 6 mm calculus in the distal right ureter producing moderate hydroureteronephrosis and inflammatory stranding. Dictated by: Dictated on workstation # [id number]
--- NOTE | 2018-03-27 11:58 | Diagnostic Imaging Report ---
INDICATION: Right lower quadrant pain radiating to the right flank. TIME OF EXAMINATION: 12:12 PM. FINDINGS: Punctate calcific densities overlie both renal shadows, consistent with bilateral renal calculi. The bowel gas pattern is unremarkable. A 6 mm calcific density overlies the right sacrum at approximately the S3 level, consistent with a ureteric calculus. No calculi along the distribution of the left ureter are seen. IMPRESSION: Bilateral renal calculi as well as a distal right ureteral calculus. Dictated by: Dictated on workstation # [id number]
[2018-03-27] MEDS ORDERED: KETOROLAC 30 MG/ML VIAL IVP ONE (12:15)
[2018-03-27] MEDS ORDERED: ONDN4T PO (12:28)
[2018-03-27] MEDS ORDERED: ACHD5005 PO (12:28)
[2018-03-27] MEDS ORDERED: SULF1TAB35 PO (12:28)
[2018-03-27 13:05] VITALS: BP 130/93
[2018-03-27 13:10] LABS: BILIRUBIN,URINE NEGATIVE (NEGATIVE); CLARITY,URINE CLEAR; COLOR,URINE YELLOW; GLUCOSE, URINE (UA) NEGATIVE (NEGATIVE); KETONES,URINE NEGATIVE (NEGATIVE); LEUKOCYTE ESTERASE ,URINE NEGATIVE (NEGATIVE); NITRITE,URINE NEGATIVE (NEGATIVE); PH,URINE 5 (5-9); PROTEIN,URINE 1+ (NEGATIVE); UROBILINOGEN,URINE NORMAL (NORMAL)
[2018-03-27 13:20] LABS: BACTERIA,URINE NEGATIVE /HPF; SQUAMOUS EPITHELIAL CELL,UR RARE /HPF
== END 2018-03-27 13:05 | disposition home or self-care (01) ==
LOC: EDUNIT# 10:48 → ER 10:48
DX: N13.2 Hydronephrosis with renal and ureteral calculous obstruction (principal); I10 Essential (primary) hypertension; K21.9 Gastro-esophageal reflux disease without esophagitis; F32.9 Major depressive disorder, single episode, unspecified; Z79.51 Long term (current) use of inhaled steroids; Z98.890 Other specified postprocedural states; Z82.49 Family history of ischemic heart disease and other diseases of the circulatory system; Z90.49 Acquired absence of other specified parts of digestive tract
CPT/HCPCS: 36415; 74018; 74176; 80053; 81000; 82150; 83690; 85025; 96361; 96374; 96375

== ENCOUNTER → 2018-04-08 | Outpatient (CLI) | payer BC ==
[~2018-04-08] MED LIST changes: +ACHD5005 PO; +HYDR-3812 PO; +HYDR25TA4 PO; -LISI40TA; +LISI40TA PO; -OMEP20CA12; +OMEP20CA12 PO; +ONDN4T PO; +PHEN-640 PO; -SERT100T8; +SERT100T8 PO; -TRAM50TA2; +TRAM50TA2 PO
--- NOTE | 2018-04-08 16:33 | Diagnostic Imaging Report ---
PATIENT HISTORY: PARISH RENAL STONES RT URETERAL STONE. TECHNIQUE: Supine frontal views of the abdomen. COMPARISON: 03/27/2018. FINDINGS: There is moderate stool in the colon. No significantly dilated loops of small bowel are seen to indicate obstruction. No large collection of free air is seen. Multiple calculi are seen in the kidneys. The previously seen right ureteral calculus appears to have moved distally and medially to the pelvis. IMPRESSION: The previously seen 6 mm right ureteral calculus appears to have moved distally and medially in the pelvis since the prior study. Additional calculi are again seen in the kidneys. Please note that CT is more sensitive for evaluation. Dictated by: Dictated on workstation # [id number]
== END ==
LOC: RAD 14:51
PROVIDERS: ATTEND Urology
DX: N20.2 Calculus of kidney with calculus of ureter (principal)
CPT/HCPCS: 74018

== ENCOUNTER 2018-04-09 08:41 | Outpatient (CLI) | payer BC ==
[~2018-04-09] VITALS: Ht 180.3 cm; Wt 117.9 kg
[~2018-04-09 08:41] MED LIST changes: -HYDR-3812 PO; -HYDR25TA4 PO; -PHEN-640 PO
[2018-04-09] MEDS ORDERED: HYDR25TA4 PO (09:54)
[2018-04-10] MEDS ORDERED: PHEN-640 PO (10:40)
[2018-04-10] MEDS ORDERED: TAMS0.4C98 PO (10:40)
[2018-04-10] MEDS ORDERED: HYDR-3812 PO (10:40)
[2018-04-10] MEDS ORDERED: SULF1TAB35 PO (10:40)
== END 2018-04-09 10:00 | disposition home or self-care (01) ==
LOC: PREOP 08:41
PROVIDERS: ATTEND Urology
DX: Z01.818 Encounter for other preprocedural examination (principal)

== ENCOUNTER 2018-04-10 06:47 | Day surgery (SDC) | payer BC ==
[~2018-04-10] VITALS: Ht 180.3 cm; Wt 117.9 kg
[~2018-04-10 06:47] MED LIST changes: +HYDR25TA4 PO
[2018-04-10] MEDS ORDERED: fentaNYL INJECTION 100 MCG/2 ML AMP ONE (06:54)
[2018-04-10] MEDS ORDERED: MIDAZOLAM 2 MG/2 ML (VERSED) VIAL ONE (06:54)
[2018-04-10] MEDS ORDERED: cefTRIAXone FOR IV USE 1,000 MG in NS (IVPB) 50 ML IV ONE (07:00)
[2018-04-10 07:30] VITALS: BP 152/84
--- NOTE | 2018-04-10 07:59 | Diagnostic Imaging Report ---
INDICATION: Followup of calculi. FINDINGS: There are scattered small calculi overlying the kidneys bilaterally. There is calcification noted in the pelvis right of midline measuring approximately 6 mm consistent with distal ureteral stone which has not changed in position since exam of 04/08/2018. IMPRESSION: 6 mm calculus consistent with distal ureteral stone appears unchanged in position since previous exam. There are small bilateral calculi again noted within the kidneys as well. Dictated by: Dictated on workstation # [id number]
[2018-04-10] MEDS ORDERED: LACTATED RINGERS 1,000 ML IV PRN (08:00)
--- NOTE | 2018-04-10 08:21 | Progress Note-Pre Operative ---
Pre-Operative Progress Note H&P Reviewed The H&P was reviewed, patient examined and no changes noted. Date Seen by Provider: Apr 10, 2018 Time Seen by Provider: 08:20 Date H&P Reviewed: Apr 10, 2018 Time H&P Reviewed: 08:20 Pre-Operative Diagnosis: LT DISTAL URETERAL AND BILATERAL RENAL STONES DEMTERIA CAMARILLO MD Apr 10, 2018 08:21
--- NOTE | 2018-04-10 08:22 | Progress Note-Post Operative ---
Post-Operative Progess Note Surgeon (s)/Laundry Routeman (s) Surgeon DEMETRIA CAMARILLO MD Laundry Routeman: NONE Pre-Operative Diagnosis RT DISTAL URETERAL AND BILATERAL RENAL STONES Post-Operative Diagnosis SAME Procedure & Operative Findings Date of Procedure 04/10/18 Procedure Performed/Findings RT URETEROSCOPY WITH STONE LITHOTRIPSY, AND STENT Anesthesia Type GENERAL Estimated Blood Loss Estimated blood loss (mL): NONE Specimens/Packing Specimens Removed NONE Packing: NONE DEMETRIA CAMARILLO MD Apr 10, 2018 08:22
--- NOTE | 2018-04-10 08:25 | Discharge Inst-Urology ---
Discharge Inst-Urology Discharge Medications New, Converted, or Re-newed RX: RX on Chart Patient Instructions/Follow Up Plan KUB on way home Admit on Saturday 04/14 for ESWL, please follow instructions on preop order sheet. Increase oral fluids for 48 hours and then as needed. Diet and Activity as tolerated. If questions or concerns contact your physician Or seek help at emergency department. DEMETRIA CAMARILLO MD Apr 10, 2018 08:25
[2018-04-10] MEDS ORDERED: PHENYLEPHRINE 100 MCG/ML 10 ML (ANESTHESIA) SYR ONE (08:56)
[2018-04-10] MEDS ORDERED: proPOfol 200 MG/20 ML (DIPRIVAN) VIAL IV ONE ×2 (08:56→09:06)
[2018-04-10] MEDS ORDERED: LIDOCAINE PF 2% 5 ML (XYLOCAINE) VIAL ONE (08:56)
[2018-04-10] MEDS ORDERED: ONDANSETRON 4 MG/2 ML (SDV) Z0FRAN ONE (08:56)
[2018-04-10] MEDS ORDERED: ROCURONIUM 10 MG/ML 5 ML SYRINGE IV ONE (08:56)
[2018-04-10] MEDS ORDERED: SEVOFLURANE (ULTANE) 15 ML INHAL SOLN ONE (08:56)
[2018-04-10] MEDS ORDERED: MEPERIDINE (DEMEROL) INJ 50 MG/ML IVP ONE (09:30)
[2018-04-10] MEDS ORDERED: morphine INJ 10 MG/ML 1ML (SYR OR VIAL) IVP ONE (09:30)
[2018-04-10] MEDS ORDERED: fentaNYL INJECTION 100 MCG/2 ML AMP IVP ONE (09:30)
[2018-04-10] MEDS ORDERED: ONDANSETRON 4 MG/2 ML (SDV) Z0FRAN IVP PRN (09:30)
[2018-04-10 10:20] VITALS: BP 126/81
--- NOTE | 2018-04-10 10:34 | Diagnostic Imaging Report ---
INDICATION: Stent placement. FINDINGS: Two limited fluoroscopic images were obtained during placement of a right nephroureteral stent. Stent appears to be in satisfactory position. IMPRESSION: Intraprocedural fluoroscopy as described. Dictated by: Dictated on workstation # [id number]
[2018-04-10] MEDS ORDERED: PHEN-640 PO (10:40)
[2018-04-10] MEDS ORDERED: HYDR-3812 PO (10:40)
[2018-04-10] MEDS ORDERED: TAMS0.4C98 PO (10:40)
[2018-04-10] MEDS ORDERED: SULF1TAB35 PO (10:40)
[2018-04-10 10:50] VITALS: BP 119/79
[2018-04-10 11:20] VITALS: BP 128/78
[2018-04-10 12:00] VITALS: BP 128/78
--- NOTE | 2018-04-10 12:41 | OPERATIVE REPORT ---
DATE OF SERVICE: 04/10/2018 PREOPERATIVE DIAGNOSIS: Right distal ureteral and bilateral renal stones. POSTOPERATIVE DIAGNOSIS: Right distal ureteral and bilateral renal stones. OPERATION PERFORMED: Right ureteroscopy with stone lithotripsy and insertion of right double-J stent. SURGEON: Raghu Camarillo MD ANESTHESIA: General. COMPLICATIONS: None. DESCRIPTION OF PROCEDURE: Under satisfactory general anesthesia, the patient in lithotomy position, genitalia were prepped and draped in usual sterile fashion. Cystoscope was introduced under vision. The anterior urethra was normal. The prostate was nonobstructing. Bladder neck was open. The bladder was normal except swollen right orifice and intramural portion due to the stone impaction there. I removed the cystoscope, inserted a 6.9 Latvian semirigid ureteroscope. I had to disengage the impacted stone from the ureter, so I can start breaking it with the LithoClast; however, the stones started moving more proximally. I broke as much as possible. It was in the mid ureter and I did not want to do any basketing at that area safely or lose the stone into the kidney, so I went ahead and removed the ureteroscope and reinserted the cystoscope, passed a 6-Latvian 26 cm double-J stent and guided fluoroscopically all the way to the right renal pelvis, bypassing the stone easily, removed the guidewire. The stent was seen draining nicely proximally fluoroscopically and distally endoscopically. Bladder was evacuated. Cystoscope was removed. The patient tolerated the procedure and anesthesia well and was sent to recovery room in stable condition. Plan to bring him back on Friday when the ESWL is here and break the stone with it and remove the stent possibly at the same time. This was fully explained to the and preoperatively to the patient with this possibility. Job ID: [id number] DocumentID: [id number] Dictated Date: 04/10/2018 09:23:24 Rn Acute Care Date: 04/10/2018 12:41:01 Dictated By: RAGHU CAMARILLO MD
--- NOTE | 2018-04-10 12:53 | Diagnostic Imaging Report ---
INDICATION: Nephrolithiasis. KUB at 11:56 a.m. FINDINGS: There are some tiny calcifications projecting over both kidneys. The right ureteral stent has migrated distally with most of the catheter in the urinary bladder and a small part remaining in the distal ureter. IMPRESSION: Migration of the right ureteral stent. Tiny calcifications project over both kidneys. Dictated by: Dictated on workstation # [id number]
--- NOTE | 2018-04-10 13:32 | Anesthesia-General Post-Op ---
General Patient Condition Mental Status/LOC: Same as Preop Cardiovascular: Satisfactory Nausea/Vomiting: Absent Respiratory: Satisfactory Pain: Controlled Complications: Absent Post Op Complications Complications None Follow Up Care/Instructions Patient Instructions None needed. Anesthesia/Patient Condition Patient Condition Patient is doing well, no complaints, stable vital signs, no apparent adverse anesthesia problems. No complications reported per nursing. CORTES AUSTIN CRNA Apr 10, 2018 13:32
== END 2018-04-10 12:00 | disposition home or self-care (01) ==
LOC: SDC 06:47
PROVIDERS: ATTEND Urology
DX: N20.1 Calculus of ureter (principal); I10 Essential (primary) hypertension; K21.9 Gastro-esophageal reflux disease without esophagitis; F17.210 Nicotine dependence, cigarettes, uncomplicated; Z79.899 Other long term (current) drug therapy
CPT/HCPCS: 74018; 87081

== ENCOUNTER 2018-04-14 09:11 | Day surgery (SDC) | payer BC ==
[~2018-04-14] VITALS: Ht 180.3 cm; Wt 119.9 kg
[~2018-04-14 09:11] MED LIST changes: +HYDR-3812 PO; +PHEN-640 PO
[2018-04-14] MEDS ORDERED: CATHETER FLUSH 10 ML SYR IV PRN (09:45)
[2018-04-14] MEDS ORDERED: cefTRIAXone FOR IV USE 1,000 MG in NS (IVPB) 50 ML IV ONE (09:45)
--- NOTE | 2018-04-14 09:58 | Progress Note-Pre Operative ---
Pre-Operative Progress Note H&P Reviewed The H&P was reviewed, patient examined and no changes noted. Date Seen by Provider: Apr 14, 2018 Time Seen by Provider: 09:58 Date H&P Reviewed: Apr 14, 2018 Time H&P Reviewed: 09:58 Pre-Operative Diagnosis: LT URETERAL AND RENAL STONES DEMETRIA CAMARILLO MD Apr 14, 2018 09:58
[2018-04-14] MEDS ORDERED: FUROSEMIDE 40 MG/4 ML INJ (LASIX) ONE (11:03)
[2018-04-14] MEDS ORDERED: SEVOFLURANE (ULTANE) 15 ML INHAL SOLN ONE (11:03)
[2018-04-14] MEDS ORDERED: DEXAMETHASONE 10 MG/ML (DECADRON) 1 ML VIAL ONE (11:03)
[2018-04-14] MEDS ORDERED: KETOROLAC 30 MG/ML VIAL ONE (11:03)
[2018-04-14] MEDS ORDERED: LIDOCAINE PF 2% 5 ML (XYLOCAINE) VIAL ONE (11:03)
[2018-04-14] MEDS ORDERED: fentaNYL INJECTION 100 MCG/2 ML AMP ONE (11:03)
[2018-04-14] MEDS ORDERED: MIDAZOLAM 2 MG/2 ML (VERSED) VIAL ONE (11:03)
[2018-04-14] MEDS ORDERED: ONDANSETRON 4 MG/2 ML (SDV) Z0FRAN ONE (11:03)
[2018-04-14] MEDS ORDERED: proPOfol 200 MG/20 ML (DIPRIVAN) VIAL IV ONE (11:03)
[2018-04-14] MEDS ORDERED: PHENYLEPHRINE 100 MCG/ML 10 ML (ANESTHESIA) SYR ONE (11:33)
--- NOTE | 2018-04-14 11:33 | Progress Note-Post Operative ---
Post-Operative Progess Note Surgeon (s)/Tile Applicator (s) Surgeon DEMETRIA CAMARILLO MD Tile Applicator: NONE Pre-Operative Diagnosis RT URETERAL AND RENAL STONES Post-Operative Diagnosis SAME Procedure & Operative Findings Date of Procedure 04/14/18 Procedure Performed/Findings RT ESWL WITH CYSTO AND REMOVAL OF STENT Anesthesia Type GENERAL Estimated Blood Loss Estimated blood loss (mL): NONE Specimens/Packing Specimens Removed NONE Packing: NONE DEMETRIA CAMARILLO MD Apr 14, 2018 11:33
--- NOTE | 2018-04-14 11:36 | Discharge Inst-Urology ---
Discharge Inst-Urology Discharge Medications New, Converted, or Re-newed RX: RX on Chart Patient Instructions/Follow Up Plan Please make appointment to been seen in office in 4 weeks. KUB prior to it KUB on way home Post ESWL instructions Increase oral fluids for 48 hours and then as needed. Diet and Activity as tolerated. If questions or concerns contact your physician Or seek help at emergency department. DEMETRIA CAMARILLO MD Apr 14, 2018 11:36
--- NOTE | 2018-04-14 12:50 | Diagnostic Imaging Report ---
INDICATION: History of kidney stones. COMPARISON: 04/10/2018. FINDINGS: Two frontal supine radiographic views of the abdomen and pelvis were obtained. Note is again made of small extraosseous calcifications projecting over both kidneys consistent with nephrolithiasis. Right-sided double-J ureter stent is again noted within the distal right ureter and coiled within the urinary bladder. This is stable compared to prior exam. No new unexpected extraosseous calcifications or radiopaque foreign bodies are seen. Small bowel loops are nondistended. There is no large collection of free intraperitoneal air. IMPRESSION: 1. Redemonstration of bilateral nephrolithiasis. 2. Stable position of right ureteral stent within the distal ureter extending into the urinary bladder. Dictated by: Dictated on workstation # [id number]
[2018-04-14 12:55] VITALS: BP 130/80
[2018-04-14 13:00] VITALS: BP 130/80
[2018-04-14] MEDS ORDERED: TAMS0.4C98 PO (13:12)
[2018-04-14] MEDS ORDERED: HYDR-3870 PO (13:12)
[2018-04-14] MEDS ORDERED: NITR-68 PO (13:12)
[2018-04-14 13:25] VITALS: BP 141/72
[2018-04-14 13:55] VITALS: BP 138/76
--- NOTE | 2018-04-14 14:41 | Anesthesia-General Post-Op ---
General Patient Condition Mental Status/LOC: Same as Preop Cardiovascular: Satisfactory Nausea/Vomiting: Absent Respiratory: Satisfactory Pain: Controlled Complications: Absent Post Op Complications Complications None Follow Up Care/Instructions Patient Instructions None needed. Anesthesia/Patient Condition Patient Condition Patient is doing well, no complaints, stable vital signs, no apparent adverse anesthesia problems. No complications reported per nursing. NIMCO WARNER CRNA Apr 14, 2018 14:41
--- NOTE | 2018-04-14 15:20 | Diagnostic Imaging Report ---
INDICATION: Status post ESWL. COMPARISON: Earlier the same day. FINDINGS: Single supine radiographic view of the abdomen was obtained and demonstrates interval removal of right-sided ureteral stent. Previously described bilateral nephrolithiasis is not as well visualized on this exam. Small calculi may be obscured by content within the large and small bowel. No other unexpected extraosseous calcifications or radiopaque foreign bodies are seen. Small bowel loops are nondistended. IMPRESSION: 1. Interval removal of right-sided ureteral stent. 2. Previously described bilateral nephrolithiasis is not well visualized. Correlation with interval intervention is recommended. Additionally, calculi may be obscured secondary to debris within the large and small bowel. Dictated by: Dictated on workstation # [id number]
--- NOTE | 2018-04-14 17:00 | OPERATIVE REPORT ---
DATE OF SERVICE: 04/14/2018 PREOPERATIVE DIAGNOSIS: Right ureteral and renal stones. POSTOPERATIVE DIAGNOSIS: Right ureteral and renal stones. OPERATION PERFORMED: Right ESWL with cystoscopy and removal of right stent. SURGEON: Raghu Camarillo MD ANESTHESIA: General. COMPLICATIONS: None. DESCRIPTION OF PROCEDURE: Under satisfactory general anesthesia, the patient in supine position on the ESWL table, we first localized the right renal stone and delivered shocks at a kV of 4, total of 800 shocks completely fragmented the stone. We then moved to the distal ureter. Before we did that, we went ahead and performed cystoscopy with the flexible cystoscope under sterile condition, grasped the distal end of the stent and removed this in total. We localized the right distal ureteral stone and delivered 1700 shocks at a kV of 6. Again, completely fragmented the stone that was not visible any more. The patient received 40 mg of Lasix and 30 mg of Toradol IV at the end of the procedure. He tolerated the procedure and anesthesia well and was sent to recovery room in stable condition. Job ID: [id number] DocumentID: [id number] Dictated Date: 04/14/2018 11:48:47 Dinner Cook Date: 04/14/2018 16:59:36 Dictated By: RAGHU CAMARILLO MD
== END 2018-04-14 14:00 | disposition home or self-care (01) ==
LOC: SDC 09:11
PROVIDERS: ATTEND Urology
DX: N20.2 Calculus of kidney with calculus of ureter (principal); I10 Essential (primary) hypertension; K21.9 Gastro-esophageal reflux disease without esophagitis; E66.9 Obesity, unspecified; Z68.36 Body mass index [BMI] 36.0-36.9, adult; Z79.899 Other long term (current) drug therapy
CPT/HCPCS: 74018; 87081

== ENCOUNTER 2018-11-02 16:23 | Emergency (ER) | payer BC ==
[~2018-11-02] VITALS: Ht 180.3 cm; Wt 115.7 kg
[~2018-11-02 16:23] MED LIST changes: +HYDR-3870 PO; +METR-145 PO; -METR-197 PO; +NITR-68 PO
--- OUTSIDE RECORDS SUMMARY | 2018-11-02 16:29 | XMS REPORT ---
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 Active 688825278 Problem Edema 782.3 Active 121275664 ALLERGIES No Information ENCOUNTERS Encounter Location Date Diagnosis [facility] [id number] [place] [address] Jul, [facility] [id number] [place] [address] Jul, [facility] [id number] [place] [address] Jul, [facility] [id number] [place] [address] Jul, [facility] [id number] [place] [address] Jun, [facility] [id number] [place] [address] May, [facility] [id number] [place] [address] May, [facility] [id number] [place] [address] May, [facility] [id number] [place] [address] May, [facility] [id number] [place] [address] Apr, [facility] [id number] [place] [address] Apr, [facility] [place] [facility] [address] [id number] [place] [address] Mar, [facility] [place] [facility] [address] [facility] [id number] [place] [address] Mar, [facility] [place] [facility] [id number] [place] [address] Feb, [facility] [place] [facility] [address] [id number] [place] [address] Feb, [facility] [place] [facility] [id number] [place] [address], [place] [address] Feb, [facility] [place] [facility] [address] [facility] [id number] [place] [address] Feb, [facility] [place] [facility] [id number] [place] [address] Feb, [facility] [place] [facility] [address] [id number] [place] [address] Feb, [facility] [place] [facility] [id number] [place] [address] Jan, [facility] [place] [facility] [id number] [place] [address] Jan, [facility] [place] [facility] [address] [facility] [id number], [place] [address] Dec, [facility] [place] [facility] [address] [facility] [id number], [place] [address] Nov, [facility] [place] [facility] [address] [id number] [place] [address] Oct, [facility] [place] [facility] [address] [facility] [id number], [place] [address] Oct, [facility] [place] [facility] [address] [id number] [address] Oct, [facility] [place] [facility] [address] [id number] [place] [address] Sep, [facility] [place] [facility] [address] [id number] [place] [address] Sep, [facility] [place] [facility] [address] [id number] [place] [address] Sep, [facility] [place] [facility] [address] [id number] [place] [address] August, [facility] [place] [facility] [address] [id number] [place] [address] Jul, [facility] [place] [facility] [address] [id number] [place] [address] Jul, [facility] [place] [facility] [address] [id number] [place] [address] Jul, [facility] [place] [facility] [address] [id number] [place] [address] Jul, [facility] [place] [facility] [address] [id number] [place] [address] Jun, [facility] [place] [facility] [address] [id number] [place] [address] Jun, [facility] [place] [facility] [address] [id number] [place] [address] Jun, [facility] [place] [facility] [address] [id number] [place] [address] May, [facility] [place] [facility] [address] [id number] [place] [address] May, [facility] [place] [facility] [address] [id number] [place] [address] May, [facility] [place] [facility] [address] [id number] [place] [address] Mar, [facility] [place] [facility] [address] [id number], [place] [address] Feb, [facility] [address] [facility] [id number] [place] [address] Jan, [facility] [address] [facility] [id number], [place] [address] Oct, [facility] [address] [facility] [id number] [place] [address] Mar, IMMUNIZATIONS No Known Immunizations SOCIAL HISTORY Never Assessed REASON FOR VISIT EMR[place] [place] CARE VITAL SIGNS MEDICATIONS Unknown Medications RESULTS No Results PROCEDURES No Known procedures INSTRUCTIONS MEDICATIONS ADMINISTERED No Known Medications
--- OUTSIDE RECORDS SUMMARY | 2018-11-02 16:29 | XMS REPORT ---
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 Active 714729575 Problem Edema 782.3 Active [id number] ALLERGIES No Information ENCOUNTERS Encounter Location Date Diagnosis [facility] [place] [id number] [place] [address] Jul, [facility] [place] [id number] [place] [address] Jul, [facility] [place] [id number] [place] [address] Jul, [facility] [place] [id number] [place] [address] Jul, [facility] [place] [id number] [place] [address] Jun, [facility] [place] [id number] [place] [address] May, [facility] [place] [id number] [place] [address] May, [facility] [place] [id number] [place] [address] May, [facility] [place] [id number] [place] [address] May, [facility] [place] [id number] [place] [address] Apr, [facility] [place] [id number] [place] [address] Apr, [facility] [place] [facility] [address] [id number] [place] [address] Mar, [facility] [place] [facility] [address] [facility] [id number] [place] [address] Mar, [facility] [place] [facility] [address] [place] [address] Feb, [facility] [place] [facility] [address] [id number] [place] [address] Feb, [facility] [place] [facility] [id number] [place] [address], [place] [address] Feb, [facility] [place] [facility] [address] [facility] [id number] [place] [address] Feb, [facility] [place] [facility] [id number] [place] [address] Feb, [facility] [place] [facility] [id number] [place] [address] Feb, [facility] [place] [facility] [id number] [place] [address] Jan, [facility] [place] [facility] [id number] [place] [address] Jan, [facility] [place] [facility] [address] [facility] [id number] [address] Dec, [facility] [place] [facility] [address] [facility] [id number] [place] [address] Nov, [facility] [place] [facility] [address] [id number] [place] [address] Oct, [facility] [place] [facility] [address] [facility] [id number] [address] Oct, [facility] [place] [facility] [address] [id number] [address] Oct, [facility] [place] [facility] [address] [id number] [place] [address] Sep, [facility] [place] [facility] [address] [id number] [place] [address] Sep, [facility] [place] [facility] [address] [id number] [place] [address] Sep, [facility] [place] [facility] [address] [id number] [place] [address] August, [facility] [place] [facility] [address] [id number] [place] [address] Jul, [facility] [place] [facility] [address] [id number] [place] [address] Jul, [facility] [place] [facility] [address] [id number] [place] [address] Jul, [facility] [place] [facility] [address] [id number] [place] [address] Jul, [facility] [place] [facility] [address] [id number] [place] [address] Jun, [facility] [place] [facility] [address] [id number] [place] [address] Jun, [facility] [place] [facility] [address] [id number] [place] [address] Jun, [facility] [place] [facility] [address] [id number] [place] [address] May, [facility] [place] [facility] [address] [id number] [place] [address] May, [facility] [place] [facility] [address] [id number] [place] [address] May, [facility] [place] [facility] [address] [id number] [place] [address] Mar, [facility] [place] [facility] [address] [id number] [place] [address] Feb, [facility] [place] [address] [facility] [id number] [place] [address] Jan, [facility] [place] [address] [facility] [id number] [place] [address] Oct, [facility] [place] [address] [facility] [id number] [place] [address] Mar, IMMUNIZATIONS No Known Immunizations SOCIAL HISTORY Never Assessed REASON FOR VISIT EMR[place] [place]AN OF CARE VITAL SIGNS MEDICATIONS Unknown Medications RESULTS No Results PROCEDURES No Known procedures INSTRUCTIONS MEDICATIONS ADMINISTERED No Known Medications
--- OUTSIDE RECORDS SUMMARY | 2018-11-02 16:29 | XMS REPORT ---
Author Author Migration, Doctor Organization [facility] Address Unknown Phone Unavailable Care Team Providers Care Heel Stiffener Name Role Phone Migration, Doctor Unavailable Unavailable PROBLEMS Type Condition ICD9-CM Code VOT82-UU Code Onset Dates Condition Status SNOMED Code Problem Chronic kidney disease, Stage I 585.1 Active 108787164 Problem Other testicular hypofunction 257.2 Active [id number] Problem Edema 782.3 Active [id number] ALLERGIES No Information ENCOUNTERS Encounter Location Date Diagnosis [facility] [id number] [place] [address] Jul, [facility] [id number] [place] [address] Jul, [facility] [id number] [place] [address] Jul, [facility] [id number] [place] [address] Jul, [facility] [id number] [place] [address] Jun, [facility] [id number] [place] [address] May, [facility] [id number] [place] [address] May, [facility] [id number] [place] [address] May, [facility] [id number] [place] [address] May, [facility] [id number] [place] [address] Apr, [facility] [id number] [place] [address] Apr, [facility] [place] [facility] [address] [id number] [place] [address] Mar, [facility] [place] [facility] [address] [facility] [id number] [place] [address] Mar, [facility] [place] [facility] [id number] [place] [address] Feb, [facility] [place] [facility] [address] [id number] [place] [address] Feb, [facility] [place] [facility] [id number] [place] [address], [place] [address] Feb, [facility] [place] [facility] [address] [facility] [id number] [place] [address] Feb, [facility] [place] [facility] [address] [place] [address] Feb, [facility] [place] [facility] [address] [id number] [place] [address] Feb, [facility] [place] [facility] [address] [id number] [place] [address] Jan, [facility] [place] [facility] [address] [id number] [place] [address] Jan, [facility] [place] [facility] [address] [facility] [id number] [place] [address] Dec, [facility] [place] [facility] [address] [facility] [id number] [place] [address] Nov, [facility] [place] [facility] [address] [id number] [place] [address] Oct, [facility] [place] [facility] [address] [facility] [id number] [place] [address] Oct, [facility] [place] [facility] [address] [id number] [address] Oct, [facility] [place] [facility] [address] [id number] [place] [address] Sep, [facility] [place] [facility] [address] [id number] [place] [address] Sep, [facility] [place] [facility] [address] [id number] [place] [address] Sep, [facility] [place] [facility] [address] [id number] [place] [address] August, [facility] [place] [facility] [address] [id number] [place] [address] Jul, [facility] [place] [facility] [address] [id number] [place] [address] Jul, [facility] [place] [facility] [address] [id number] [place] [address] Jul, [facility] [place] [facility] [address] [id number] [place] [address] Jul, [facility] [place] [facility] [address] [id number] [place] [address] Jun, [facility] [place] [facility] [address] [id number] [place] [address] Jun, [facility] [place] [facility] [address] [id number] [place] [address] Jun, [facility] [place] [facility] [address] [id number] [place] [address] May, [facility] [place] [facility] [address] [id number] [place] [address] May, [facility] [place] [facility] [address] [id number] [place] [address] May, [facility] [place] [facility] [address] [id number] [place] [address] Mar, [facility] [place] [facility] [address] [id number] [place] [address] Feb, [facility] [address] [facility] [id number] [place] [address] Jan, [facility] [address] [facility] [id number] [place] [address] Oct, [facility] [address] [facility] [id number] [place] [address] Mar, IMMUNIZATIONS No Known Immunizations SOCIAL HISTORY Never Assessed REASON FOR VISIT [facility] [place] OF CARE VITAL SIGNS MEDICATIONS Medication Instructions Dosage Frequency Start Date End Date Duration Status Hydrochlorothiazide 25 mg 1 tablet by Oral route 1 time per day Jun, Active Flonase 50 mcg/actuation 1 sprays by Nasal route 2 times per dayin each nostril May, Active Depo-Testosterone 100 mg/mL inject 2 mL by Intramuscular route every 4 weeks Apr, Active Levitra 10 mg 1 tablet by Oral route 1 time per dayPRN Feb, Active verapamil 180 mg/12 hours 1 tablet by Oral route every 12 hours Jan, Active RESULTS No Results PROCEDURES No Known procedures INSTRUCTIONS MEDICATIONS ADMINISTERED No Known Medications
--- OUTSIDE RECORDS SUMMARY | 2018-11-02 16:29 | XMS REPORT ---
Author Author Migration, Doctor Organization [facility] Address Unknown Phone Unavailable Care Team Providers Care Center Human Resources Manager Name Role Phone Migration, Doctor Unavailable Unavailable PROBLEMS Type Condition ICD9-CM Code [id number] Code Onset Dates Condition Status SNOMED Code Problem Chronic kidney disease, Stage I 585.1 Active 676349977 Problem Other testicular hypofunction 257.2 Active 127244289 Problem Edema 782.3 Active [id number] ALLERGIES No Information ENCOUNTERS Encounter Location Date Diagnosis [facility] [id number] [place] [address] Jul, [facility] [id number] [place] [address] Jul, [facility] [id number] [place] [address] Jul, [facility] [id number] [place] [address] Jul, [facility] [id number] [place] [address] Jun, [facility] [id number] [place] [address] May, [facility] [id number] [place] [address] May, [facility] [id number] [place] [address] May, [facility] [id number] [place] [address] May, [facility] [id number] [place] [address] Apr, [facility] [id number] [place] [address] Apr, [facility] [place] [facility] [address] [id number] [place] [address] Mar, [facility] [place] [facility] [address] [facility] [id number] [place] [address] Mar, [facility] [place] [facility] [id number] [place] [address] Feb, [facility] [place] [facility] [address] [id number] [place] [address] Feb, [facility] [place] [facility] [id number] [place] [address], [place] [address] Feb, [facility] [place] [facility] [address] [facility] [id number] [place] [address] Feb, [facility] [place] [facility] [id number] [place] [address] Feb, [facility] [place] [facility] [address] [id number] [place] [address] Feb, [facility] [place] [facility] [address] [id number] [place] [address] Jan, [facility] [place] [facility] [address] [id number] [place] [address] Jan, [facility] [place] [facility] [address] [facility] [id number], [place] [address] Dec, [facility] [place] [facility] [address] [facility] [id number], [place] [address] Nov, [facility] [place] [facility] [address] [id number] [place] [address] Oct, [facility] [place] [facility] [address] [facility] [id number], [place] [address] Oct, [facility] [place] [facility] [address] [id number] [address] Oct, [facility] [place] [facility] [address] [id number] [place] [address] Sep, [facility] [place] [facility] [address] [id number] [place] [address] Sep, [facility] [place] [facility] [address] [id number] [place] [address] Sep, [facility] [place] [facility] [address] [id number] [place] [address] August, [facility] [place] [facility] [address] [id number] [place] [address] Jul, [facility] [place] [facility] [address] [id number] [place] [address] Jul, [facility] [place] [facility] [address] [id number] [place] [address] Jul, [facility] [place] [facility] [address] [id number] [place] [address] Jul, [facility] [place] [facility] [address] [id number] [place] [address] Jun, [facility] [place] [facility] [address] [id number] [place] [address] Jun, [facility] [place] [facility] [address] [id number] [place] [address] Jun, [facility] [place] [facility] [address] [id number] [place] [address] May, [facility] [place] [facility] [address] [id number] [place] [address] May, [facility] [place] [facility] [address] [id number] [place] [address] May, [facility] [place] [facility] [address] [id number] [place] [address] Mar, [facility] [place] [facility] [address] [id number], [place] [address] Feb, [facility] [address] [facility] [id number] [place] [address] Jan, [facility] [address] [facility] [id number][place] [address] Oct, [facility] [address] [facility] [id number] [place] [address] Mar, IMMUNIZATIONS No Known Immunizations SOCIAL HISTORY Never Assessed REASON FOR VISIT [facility] [place] PLAN OF CARE VITAL SIGNS MEDICATIONS Unknown Medications RESULTS No Results PROCEDURES No Known procedures INSTRUCTIONS MEDICATIONS ADMINISTERED No Known Medications
--- OUTSIDE RECORDS SUMMARY | 2018-11-02 16:30 | XMS REPORT ---
Author Author Migration, Doctor Organization [facility] Address Unknown Phone Unavailable Care Team Providers Care Pit Recorder Name Role Phone Migration, Doctor Unavailable Unavailable PROBLEMS Type Condition ICD9-CM Code [id number] Code Onset Dates Condition Status SNOMED Code Problem Chronic kidney disease, Stage I 585.1 Active 257668758 Problem Other testicular hypofunction 257.2 Active 462770526 Problem Edema 782.3 Active 547521203 ALLERGIES No Information ENCOUNTERS Encounter Location Date Diagnosis [facility] [id number] [place] [address] Jul, [facility] [id number] [place] [address] Jul, [facility] [id number] [place] [address] Jul, [facility] [id number] [place] [address] Jul, [facility] [id number] [place] [address] Jun, [facility] [id number] [place] [address] May, [facility] [id number] [place] [address] May, [facility] [id number] [place] [address] May, [facility] [id number] [place] [address] May, [facility] [id number] [place] [address] Apr, [facility] [id number] [place] [address] Apr, [facility] [place] [facility] [address] [id number] [place] [address] Mar, [facility] [place] [facility] [address] [facility] [id number] [place] [address] Mar, [facility] [place] [facility] [id number] [place] [address] Feb, [facility] [place] [facility] [address] [id number] [place] [address] Feb, [facility] [place] [facility] [id number] [place] [address], [place] [address] Feb, [facility] [place] [facility] [address] [facility] [id number] [place] [address] Feb, [facility] [place] [facility] [id number] [place] [address] Feb, [facility] [place] [facility] [address] [id number] [place] [address] Feb, [facility] [place] [facility] [address] [id number] [place] [address] Jan, [facility] [place] [facility] [address] [id number] [place] [address] Jan, [facility] [place] [facility] [address] [facility] [id number] [place] [address] Dec, [facility] [place] [facility] [address] [facility] [id number] [place] [address] Nov, [facility] [place] [facility] [address] [id number] [place] [address] Oct, [facility] [place] [facility] [address] [facility] [id number] [place] [address] Oct, [facility] [place] [facility] [address] [id number] [address] Oct, [facility] [place] [facility] [address] [id number] [place] [address] Sep, [facility] [place] [facility] [address] [id number] [place] [address] Sep, [facility] [place] [facility] [address] [id number] [place] [address] Sep, [facility] [place] [facility] [address] [id number] [place] [address] August, [facility] [place] [facility] [address] [id number] [place] [address] Jul, [facility] [place] [facility] [address] [id number] [place] [address] Jul, [facility] [place] [facility] [address] [id number] [place] [address] Jul, [facility] [place] [facility] [address] [id number] [place] [address] Jul, [facility] [place] [facility] [address] [id number] [place] [address] Jun, [facility] [place] [facility] [address] [id number] [place] [address] Jun, [facility] [place] [facility] [address] [id number] [place] [address] Jun, [facility] [place] [facility] [address] [id number] [place] [address] May, [facility] [place] [facility] [address] [id number] [place] [address] May, [facility] [place] [facility] [address] [id number] [place] [address] May, [facility] [place] [facility] [address] [id number] [place] [address] Mar, [facility] [place] [facility] [address] [id number] [place] [address] Feb, [facility] [address] [facility] [id number] [place] [address] Jan, [facility] [address] [facility] [id number] [place] [address] Oct, [facility] [address] [facility] [id number] [place] [address] Mar, IMMUNIZATIONS No Known Immunizations SOCIAL HISTORY Never Assessed [place] FOR [place]IT [place] [place] VITAL SIGNS MEDICATIONS Unknown Medications RESULTS No Results PROCEDURES No Known procedures INSTRUCTIONS MEDICATIONS ADMINISTERED No Known Medications
--- OUTSIDE RECORDS SUMMARY | 2018-11-02 16:30 | XMS REPORT ---
Author Author Migration, Doctor Organization [facility] Address Unknown Phone Unavailable Care Team Providers Care Medical Instrument Technician Name Role Phone Migration, Doctor Unavailable Unavailable PROBLEMS Type Condition ICD9-CM Code TIF85-GB Code Onset Dates Condition Status SNOMED Code Problem Chronic kidney disease, Stage I 585.1 Active 715568172 Problem Other testicular hypofunction 257.2 Active 050039067 Problem Edema 782.3 Active [id number] ALLERGIES No Information ENCOUNTERS Encounter Location Date Diagnosis [facility] [id number] [place] [address] Jul, [facility] [id number] [place] [address] Jul, [facility] [id number] [place] [address] Jul, [facility] [id number] [place] [address] Jul, [facility] [id number] [place] [address] Jun, [facility] [id number] [place] [address] May, [facility] [id number] [place] [address] May, [facility] [id number] [place] [address] May, [facility] [id number] [place] [address] May, [facility] [id number] [place] [address] Apr, [facility] [id number] [place] [address] Apr, [facility] [place] [facility] [address] [id number] [place] [address] Mar, [facility] [place] [facility] [address] [facility] [id number] [place] [address] Mar, [facility] [place] [facility] [id number] [place] [address] Feb, [facility] [place] [facility] [address] [id number] [place] [address] Feb, [facility] [place] [facility] [id number] [place] [address], [place] [address] Feb, [facility] [place] [facility] [address] [facility] [id number] [place] [address] Feb, [facility] [place] [facility] [id number] [place] [address] Feb, [facility] [place] [facility] [address] [id number] [place] [address] Feb, [facility] [place] [facility] [address] [id number] [place] [address] Jan, [facility] [place] [facility] [address] [id number] [place] [address] Jan, [facility] [place] [facility] [address] [facility] [id number] [address] Dec, [facility] [place] [facility] [address] [facility] [id number], [place] [address] Nov, [facility] [place] [facility] [address] [id number] [place] [address] Oct, [facility] [place] [facility] [address] [facility] [id number], [place] [address] Oct, [facility] [place] [facility] [address] [id number] [address] Oct, [facility] [place] [facility] [address] [id number] [place] [address] Sep, [facility] [place] [facility] [address] [id number] [place] [address] Sep, [facility] [place] [facility] [address] [id number] [place] [address] Sep, [facility] [place] [facility] [address] [id number] [place] [address] August, [facility] [place] [facility] [address] [id number] [place] [address] Jul, [facility] [place] [facility] [address] [id number] [place] [address] Jul, [facility] [place] [facility] [address] [id number] [place] [address] Jul, [facility] [place] [facility] [address] [id number] [place] [address] Jul, [facility] [place] [facility] [address] [id number] [place] [address] Jun, [facility] [place] [facility] [address] [id number] [place] [address] Jun, [facility] [place] [facility] [address] [id number] [place] [address] Jun, [facility] [place] [facility] [address] [id number] [place] [address] May, [facility] [place] [facility] [address] [id number] [place] [address] May, [facility] [place] [facility] [address] [id number] [place] [address] May, [facility] [place] [facility] [address] [id number] [place] [address] Mar, [facility] [place] [facility] [address] [id number], [place] [address] Feb, [facility] [address] [facility] [id number] [place] [address] Jan, [facility] [address] [facility] [id number][place] [address] Oct, [facility] [address] [facility] [id number] [place] [address] Mar, IMMUNIZATIONS No Known Immunizations SOCIAL HISTORY Never Assessed REASON FOR VISIT EMR-[facility] [place] PLAN OF CARE VITAL SIGNS MEDICATIONS Unknown Medications RESULTS No Results PROCEDURES No Known procedures INSTRUCTIONS MEDICATIONS ADMINISTERED No Known Medications
--- OUTSIDE RECORDS SUMMARY | 2018-11-02 16:31 | XMS REPORT | Continuity of Care Document ---
Author Organization Unknown Address Unknown Allergies Active Description Code Type Severity Reaction Onset Reported/Identified Relationship to Patient Clinical Status Yes NAPROXEN UNKNOWN OTHER Yes No Known Drug Allergies [id number] Drug Allergy Mild N/A 03/21/2008 Medications There is no data. Problems Date Dx Coded Attending Type Code Diagnosis Diagnosed By 11/24/2007 530.81 GERD 11/24/2007 709.9 DERMATITIS OTHER SKIN DISORDERS 11/24/2007 530.81 GERD 11/24/2007 709.9 DERMATITIS OTHER SKIN DISORDERS 11/24/2007 TERENCE CARTER DO K 530.81 GERD 11/24/2007 TERENCE CARTER DO K 709.9 DERMATITIS OTHER SKIN DISORDERS 11/24/2007 MYRIAM CARTER DOA K 530.81 GERD 11/24/2007 MYRIAM CARTER DOA K 709.9 DERMATITIS OTHER SKIN DISORDERS 08/23/2008 401.9 ESSENTIAL HYPERTENSION 08/23/2008 401.9 ESSENTIAL HYPERTENSION 08/23/2008 MYRIAM CARTER DOA K 401.9 ESSENTIAL HYPERTENSION 08/23/2008 RAUL WALTON TERENCE K 401.9 ESSENTIAL HYPERTENSION 01/19/2009 465.9 UPPER RESPIRATORY INFECTION 01/19/2009 786.2 cough 01/19/2009 465.9 UPPER RESPIRATORY INFECTION 01/19/2009 786.2 cough 01/19/2009 MYRIAM CARTER DOA K 465.9 UPPER RESPIRATORY INFECTION 01/19/2009 CARTER DO TERENCE K 786.2 cough 01/19/2009 CARTER DO TERENCE K 465.9 UPPER RESPIRATORY INFECTION 01/19/2009 RAUL WALTON TERENCE K 786.2 cough 12/22/2009 110.5 DERMATOPHYTOSIS, OF THE BODY 12/22/2009 302.72 PSYCHOSEXUAL DYSFUNCTION, WITH INHIBITED SEXUAL EXCITEMENT 12/22/2009 110.5 DERMATOPHYTOSIS, OF THE BODY 12/22/2009 302.72 PSYCHOSEXUAL DYSFUNCTION, WITH INHIBITED SEXUAL EXCITEMENT 12/22/2009 TERENCE CARTER DO K 110.5 DERMATOPHYTOSIS, OF THE BODY 12/22/2009 TERENCE CARTER DO K 302.72 PSYCHOSEXUAL DYSFUNCTION, WITH INHIBITED SEXUAL EXCITEMENT 12/22/2009 TERENCE CARTER DO K 110.5 DERMATOPHYTOSIS, OF THE BODY 12/22/2009 TERENCE CARTER DO K 302.72 PSYCHOSEXUAL DYSFUNCTION, WITH INHIBITED SEXUAL EXCITEMENT 08/24/2010 729.5 ARM PAIN 08/24/2010 784.0 HEADACHE 08/24/2010 729.5 ARM PAIN 08/24/2010 784.0 HEADACHE 08/24/2010 MYRIAM CARTER DOA K 729.5 ARM PAIN 08/24/2010 CARTER MYRIAM WALTONA K 784.0 HEADACHE 08/24/2010 CARTER DO, TERENCE K 729.5 ARM PAIN 08/24/2010 CARTER DO, TERENCE K 784.0 HEADACHE 11/09/2010 719.46 KNEE PAIN 11/09/2010 V68.1 ISSUE OF REPEAT PRESCRIPTIONS 11/09/2010 719.46 KNEE PAIN 11/09/2010 V68.1 ISSUE OF REPEAT PRESCRIPTIONS 11/09/2010 TERENCE CARTER DO K 719.46 KNEE PAIN 11/09/2010 MYRIAM CARTER DOA K V68.1 ISSUE OF REPEAT PRESCRIPTIONS 11/09/2010 CARTER MYRIAM WALTONA K 719.46 KNEE PAIN 11/09/2010 MYRIAM CARTER DOA K V68.1 ISSUE OF REPEAT PRESCRIPTIONS 04/17/2011 461.9 SINUSITIS ACUTE 04/17/2011 461.9 SINUSITIS ACUTE 04/17/2011 TERENCE CARTER DO K 461.9 SINUSITIS ACUTE 04/17/2011 TERENCE CARTER DO K 461.9 SINUSITIS ACUTE 07/28/2011 257.2 OTHER TESTICULAR HYPOFUNCTION 07/28/2011 257.2 OTHER TESTICULAR HYPOFUNCTION 07/28/2011 TERENCE CARTER DO K 257.2 OTHER TESTICULAR HYPOFUNCTION 07/28/2011 TERENCE CARTER DO K 257.2 OTHER TESTICULAR HYPOFUNCTION 08/01/2011 585.1 CHRONIC KIDNEY DISEASE STAGE I 08/01/2011 585.1 CHRONIC KIDNEY DISEASE STAGE I 08/01/2011 TERENCE CARTER DO 585.1 CHRONIC KIDNEY DISEASE STAGE I 08/01/2011 TERENCE CARTER DO 585.1 CHRONIC KIDNEY DISEASE STAGE I 05/15/2012 782.3 EDEMA 05/15/2012 TERENCE CARTER DO 782.3 EDEMA 07/06/2016 LAN DO, STEPHANIE Ot A41.9 SEPSIS, UNSPECIFIED ORGANISM 07/06/2016 LAN DO, STEPHANIE Ot E86.0 DEHYDRATION 07/06/2016 LAN DO, STEPHANIE Ot F17.210 NICOTINE DEPENDENCE, CIGARETTES, UNCOMPL 07/06/2016 LAN DO STEPHANIE Ot F32.9 MAJOR DEPRESSIVE DISORDER, SINGLE EPISOD 07/06/2016 LAN DO, STEPHANIE Ot I10 ESSENTIAL (PRIMARY) HYPERTENSION 07/06/2016 LAN DO, STEPHANIE Ot K21.9 GASTRO-ESOPHAGEAL REFLUX DISEASE WITHOUT 07/06/2016 LAN DO, STEPHANIE Ot N20.1 CALCULUS OF URETER 07/06/2016 LAN DO STEPHANIE Ot R10.11 RIGHT UPPER QUADRANT PAIN 07/07/2016 LANARISTIDES WALTON STEPHANIE Ot A04.7 ENTEROCOLITIS DUE TO CLOSTRIDIUM DIFFICI 07/07/2016 LAN DO, STEPHANIE Ot A41.9 SEPSIS, UNSPECIFIED ORGANISM 07/07/2016 LAN DO, STEPHANIE Ot E86.0 DEHYDRATION 07/07/2016 LAN DO, STEPHANIE Ot F17.210 NICOTINE DEPENDENCE, CIGARETTES, UNCOMPL 07/07/2016 LAN DO, STEPHANIE Ot F32.9 MAJOR DEPRESSIVE DISORDER, SINGLE EPISOD 07/07/2016 LAN DO, STEPHANIE Ot I10 ESSENTIAL (PRIMARY) HYPERTENSION 07/07/2016 LAN DO, STEPHANIE Ot K21.9 GASTRO-ESOPHAGEAL REFLUX DISEASE WITHOUT 07/07/2016 LAN DO, STEPHANIE Ot K44.9 DIAPHRAGMATIC HERNIA WITHOUT OBSTRUCTION 07/07/2016 RIKY WALTON STEPHANIE Ot K82.8 OTHER SPECIFIED DISEASES OF GALLBLADDER 07/07/2016 RIKY WALTON STEPHANIE Ot N20.1 CALCULUS OF URETER 07/07/2016 RIKY WALTON STEPHANIE Ot R10.11 RIGHT UPPER QUADRANT PAIN 09/05/2016 JESSICA ZUNIGA APRN Ot I10 ESSENTIAL (PRIMARY) HYPERTENSION 09/05/2016 JESSICA ZUNIGA APRN Ot K57.30 DVRTCLOS OF LG INT W/O PERFORATION OR AB 09/05/2016 JESSICA ZUNIGA APRN Ot M16.0 BILATERAL PRIMARY OSTEOARTHRITIS OF HIP 09/05/2016 JESSICA ZUNIGA APRN Ot N20.1 CALCULUS OF URETER 09/05/2016 JESSICA ZUNIGA WEB CONTENT COORDINATOR Ot R10.30 LOWER ABDOMINAL PAIN, UNSPECIFIED 09/05/2016 JESSICA ZUNIGA WEB CONTENT COORDINATOR Ot Z79.899 OTHER INTERMEDIATE (CURRENT) DRUG THERAPY 05/26/2017 NOELLE DEJESUS W 401.0 MALIGNANT ESSENTIAL HYPERTENSION 05/26/2017 DEJESUSNOELLE MANCERA W I10 ESSENTIAL (PRIMARY) HYPERTENSION 05/26/2017 NOELLE DEJESUS V70.0 ROUTINE GENERAL MEDICAL EXAMINATION AT A HEALTH CARE FACILITY 05/26/2017 NOELLE DEJESUS Z00.01 ENCOUNTER FOR GENERAL ADULT MEDICAL EXAMINATION WITH ABNORMAL FINDINGS 05/26/2017 NOELLE DEJESUS W 401.0 MALIGNANT ESSENTIAL HYPERTENSION 05/26/2017 NOELLE DEJESUS I10 ESSENTIAL (PRIMARY) HYPERTENSION 05/26/2017 NOELLE DEJESUS V70.0 ROUTINE GENERAL MEDICAL EXAMINATION AT A HEALTH CARE FACILITY 05/26/2017 NOELLE DEJESUS Z00.01 ENCOUNTER FOR GENERAL ADULT MEDICAL EXAMINATION WITH ABNORMAL FINDINGS 05/26/2017 NOELLE DEJESUS 401.0 MALIGNANT ESSENTIAL HYPERTENSION 05/26/2017 NOELLE DEJESUS I10 ESSENTIAL (PRIMARY) HYPERTENSION 05/26/2017 DEJESUSNOELLE MANCERA V70.0 ROUTINE GENERAL MEDICAL EXAMINATION AT A HEALTH CARE FACILITY 05/26/2017 NOELLE DEJESUS Z00.01 ENCOUNTER FOR GENERAL ADULT MEDICAL EXAMINATION WITH ABNORMAL FINDINGS 11/05/2017 NOELLE DEJESUS 451.0 PHLEBITIS AND THROMBOPHLEBITIS OF SUPERFICIAL VESSELS OF LOWER EXTREMITIES 11/05/2017 NOELLE DEJESUS W 682.6 CELLULITIS AND ABSCESS OF LEG, EXCEPT FOOT 11/05/2017 NOELLE DEJESUS A I80.01 PHLEBITIS AND THROMBOPHLEBITIS OF SUPERFICIAL VESSELS OF RIGHT LOWER EXTREMITY 11/05/2017 NOELLE DEJESUS L03.115 CELLULITIS OF RIGHT LOWER LIMB 11/05/2017 NOELLE DEJESUS A 451.0 PHLEBITIS AND THROMBOPHLEBITIS OF SUPERFICIAL VESSELS OF LOWER EXTREMITIES 11/05/2017 NOELLE DEJESUS 682.6 CELLULITIS AND ABSCESS OF LEG, EXCEPT FOOT 11/05/2017 NOELLE DEJESUS A I80.01 PHLEBITIS AND THROMBOPHLEBITIS OF SUPERFICIAL VESSELS OF RIGHT LOWER EXTREMITY 11/05/2017 NOELLE DEJESUS L03.115 CELLULITIS OF RIGHT LOWER LIMB 11/24/2017 Senait Hu W 274.00 GOUTY ARTHROPATHY, UNSPECIFIED 11/24/2017 Senait Hu W 401.9 UNSPECIFIED ESSENTIAL HYPERTENSION 11/24/2017 Senait Hu W I10 ESSENTIAL (PRIMARY) HYPERTENSION 11/24/2017 Senait Hu W 274.00 GOUTY ARTHROPATHY, UNSPECIFIED 11/24/2017 Senait Hu W 401.9 UNSPECIFIED ESSENTIAL HYPERTENSION 11/24/2017 Senait Hu W I10 ESSENTIAL (PRIMARY) HYPERTENSION 02/02/2018 DEJESUS, NOELLE W 786.05 SHORTNESS OF BREATH 02/02/2018 DEJESUS, NOELLE W R06.02 SHORTNESS OF BREATH 02/02/2018 DEJESUS, NOELLE W 782.3 EDEMA 02/02/2018 DEJESUS, NOELLE W 786.05 SHORTNESS OF BREATH 02/02/2018 DEJESUS, NOELLE W R06.02 SHORTNESS OF BREATH 02/02/2018 DEJESUS, NOELLE W R60.0 LOCALIZED EDEMA 02/02/2018 DEJESUS, NOELLE W 782.3 EDEMA 02/02/2018 DEJESUS, NOELLE W 786.05 SHORTNESS OF BREATH 02/02/2018 DEJESUS, NOELLE W R06.02 SHORTNESS OF BREATH 02/02/2018 DEJESUS, NOELLE W R60.0 LOCALIZED EDEMA 02/02/2018 DEJESUS, NOELLE W 782.3 EDEMA 02/02/2018 DEJESUS, NOELLE W 786.05 SHORTNESS OF BREATH 02/02/2018 DEJESUS, NOELLE W R06.02 SHORTNESS OF BREATH 02/02/2018 DEJESUS, NOELLE W R60.0 LOCALIZED EDEMA 03/27/2018 BERNOT, FERNANDO Ot F32.9 MAJOR DEPRESSIVE DISORDER, SINGLE EPISOD 03/27/2018 BERNOT, FERNNADO Ot I10 ESSENTIAL (PRIMARY) HYPERTENSION 03/27/2018 BERNOT, FERNANOD Ot K21.9 GASTRO- ESOPHAGEAL REFLUX DISEASE WITHOUT 03/27/2018 BERNOT, FERNANDO Ot N13.2 HYDRONEPHROSIS WITH RENAL AND URETERAL C 03/27/2018 BERNOT, FERNANDO Ot R10.31 RIGHT LOWER QUADRANT PAIN 03/27/2018 BERNOT, FERNANDO Ot Z79.51 INTERMEDIATE (CURRENT) USE OF INHALED STERO 03/27/2018 BERNOT, FERNANDO Ot Z82.49 FAMILY HX OF ISCHEM HEART DIS AND OTH DI 03/27/2018 FABY ROMEIS Ot Z90.49 ACQUIRED ABSENCE OF OTHER SPECIFIED PART 03/27/2018 BERNFABY DAVENPORTIS Ot Z98.890 OTHER SPECIFIED POSTPROCEDURAL STATES 03/30/2018 FERNANDO ROME Ot F32.9 MAJOR DEPRESSIVE DISORDER, SINGLE EPISOD 03/30/2018 BERNISSAC FERNANDO Ot I10 ESSENTIAL (PRIMARY) HYPERTENSION 03/30/2018 FABY ROMEIS Ot K21.9 GASTRO- ESOPHAGEAL REFLUX DISEASE WITHOUT 03/30/2018 BERNFABY DAVENPORTIS Ot N13.2 HYDRONEPHROSIS WITH RENAL AND URETERAL C 03/30/2018 BERNFABY DAVENPORTIS Ot R10.31 RIGHT LOWER QUADRANT PAIN 03/30/2018 BERNISSAC FERNANDO Ot Z79.51 BASKETBALL COMMENTATOR (CURRENT) USE OF INHALED STERO 03/30/2018 BERNFABY DAVENPORTIS Ot Z82.49 FAMILY HX OF ISCHEM HEART DIS AND OTH DI 03/30/2018 FABY ROMEIS Ot Z90.49 ACQUIRED ABSENCE OF OTHER SPECIFIED PART 03/30/2018 FABY ROMEIS Ot Z98.890 OTHER SPECIFIED POSTPROCEDURAL STATES 04/09/2018 DEMETRIA CAMARILLO MD Ot N20.2 CALCULUS OF KIDNEY WITH CALCULUS OF URET 04/10/2018 DEMETRIA CAMARILLO MD Ot F17.210 NICOTINE DEPENDENCE, CIGARETTES, UNCOMPL 04/10/2018 DEMETRIA CAMARILLO MD Ot I10 ESSENTIAL (PRIMARY) HYPERTENSION 04/10/2018 DEMETRIA CAMARILLO MD, Ot K21.9 GASTRO-ESOPHAGEAL REFLUX DISEASE WITHOUT 04/10/2018 DEMETRIA CAMARILLO MD Ot N20.1 CALCULUS OF URETER 04/10/2018 DEMETRIA CAMARILLO MD, Ot Z79.899 OTHER INTERMEDIATE (CURRENT) DRUG THERAPY 04/13/2018 DEMETRIA CAMARILLO MD Ot Z01.818 ENCOUNTER FOR OTHER PREPROCEDURAL EXAMIN 04/14/2018 DEMETRIA CAMARILLO MD Ot E66.9 OBESITY, UNSPECIFIED 04/14/2018 DEMETRIA CAMARILLO MD Ot I10 ESSENTIAL (PRIMARY) HYPERTENSION 04/14/2018 DEMETRIA CAMARILLO MD Ot K21.9 GASTRO-ESOPHAGEAL REFLUX DISEASE WITHOUT 04/14/2018 DEMETRIA CAMARILLO MD Ot N20.2 CALCULUS OF KIDNEY WITH CALCULUS OF URET 04/14/2018 DEMETRIA CAMARILLO MD, Ot Z68.36 BODY MASS INDEX (BMI) 36.0-36.9, ADULT 04/14/2018 DEMETRIA CAMARILLO MD, Ot Z79.899 OTHER INTERMEDIATE (CURRENT) DRUG THERAPY 04/15/2018 DEMETRIA CAMARILLO MD, Ot Z01.818 ENCOUNTER FOR OTHER PREPROCEDURAL EXAMIN 04/15/2018 DEMETRIA CAMARILLO MD Ot F17.210 NICOTINE DEPENDENCE, CIGARETTES, UNCOMPL 04/15/2018 DEMETRIA CAMARILLO MD Ot I10 ESSENTIAL (PRIMARY) HYPERTENSION 04/15/2018 DEMETRIA CAMARILLO MD Ot K21.9 GASTRO-ESOPHAGEAL REFLUX DISEASE WITHOUT 04/15/2018 DEMETRIA CAMARILLO MD Ot N20.1 CALCULUS OF URETER 04/15/2018 DEMETRIA CAMARILLO MD, Ot Z79.899 OTHER INTERMEDIATE (CURRENT) DRUG THERAPY 04/15/2018 DEMETRIA CAMARILLO MD Ot F17.210 NICOTINE DEPENDENCE, CIGARETTES, UNCOMPL 04/15/2018 DEMETRIA CAMARILLO MD Ot I10 ESSENTIAL (PRIMARY) HYPERTENSION 04/15/2018 DEMETRIA CAMARILLO MD Ot K21.9 GASTRO-ESOPHAGEAL REFLUX DISEASE WITHOUT 04/15/2018 DEMETRIA CAMARILLO MD Ot N20.1 CALCULUS OF URETER 04/15/2018 DEMETRIA CAMARILLO MD, Ot Z79.899 OTHER INTERMEDIATE (CURRENT) DRUG THERAPY 04/17/2018 DEMETRIA CAMARILLO MD Ot E66.9 OBESITY, UNSPECIFIED 04/17/2018 DEMETRIA CAMARILLO MD Ot I10 ESSENTIAL (PRIMARY) HYPERTENSION 04/17/2018 DEMETRIA CAMARILLO MD, Ot K21.9 GASTRO-ESOPHAGEAL REFLUX DISEASE WITHOUT 04/17/2018 DEMETRIA CAMARILLO MD Ot N20.2 CALCULUS OF KIDNEY WITH CALCULUS OF URET 04/17/2018 DEMETRIA CAMARILLO MD, Ot Z68.36 BODY MASS INDEX (BMI) 36.0-36.9, ADULT 04/17/2018 DEMETRIA CAMARILLO MD, Ot Z79.899 OTHER BASKETBALL COMMENTATOR (CURRENT) DRUG THERAPY 04/24/2018 MARQUISE BURRIS, DEMETRIA Wallace Ot N20.2 CALCULUS OF KIDNEY WITH CALCULUS OF URET Procedures Code Description [place] [address] ROUTINE VENIPUNCTURE 05/27/2012 17495 MICRO ALBUMIN-IN HOUSE 05/27/2012 64520 CMP 05/27/2012 61351 LIPID PANEL 05/27/2012 6607166 GFR CALC (RESULT ONLY) 05/27/2012 46010 CBC 05/27/2012 52738 TESTOSTERONE FREE 05/27/2012 84403 TSH 05/27/2012 Results Test Result Range PSA Yearly Screen - 01/08/16 08:59 PSA TOTAL 0.4 ng/mL 0.0-4.0 Complete blood count (CBC) with automated white blood cell (WBC) differential - 07/04/16 19:15 Blood leukocytes automated count (number/volume) 31.8 10*3/uL 4.3-11.0 Blood erythrocytes automated count (number/volume) 5.04 10*6/uL 4.35-5.85 Venous blood hemoglobin measurement (mass/volume) 15.1 g/dL 13.3-17.7 Blood hematocrit (volume fraction) 44 % 40-54 Automated erythrocyte mean corpuscular volume 87 [foz_us] 80-99 Automated erythrocyte mean corpuscular hemoglobin (mass per erythrocyte) 30 pg 25-34 Automated erythrocyte mean corpuscular hemoglobin concentration measurement (mass/volume) 35 g/dL 32-36 Automated erythrocyte distribution width ratio 14.1 % 10.0- 14.5 Automated blood platelet count (count/volume) 342 10*3/uL 130-400 Automated blood platelet mean volume measurement 9.8 [foz_us] 7.4-10.4 Automated blood neutrophils/100 leukocytes 87 % 42-75 Automated blood lymphocytes/100 leukocytes 4 % 12-44 Blood monocytes/100 leukocytes 9 % 0-12 Automated blood eosinophils/100 leukocytes 0 % 0-10 Automated blood basophils/100 leukocytes 0 % 0-10 Blood neutrophils automated count (number/volume) 27.8 10*3 1.8-7.8 Blood lymphocytes automated count (number/volume) 1.1 10*3 1.0-4.0 Blood monocytes automated count (number/volume) 2.9 10*3 0.0- 1.0 Automated eosinophil count 0.0 10*3/uL 0.0-0.3 Automated blood basophil count (count/volume) 0.0 10*3/uL 0.0-0.1 Blood manual differential performed detection - 07/04/16 19:15 Blood monocytes/100 leukocytes 5 % NRG Manual blood segmented neutrophils/100 leukocytes 82 % NRG Blood band neutrophils/100 leukocytes 4 % NRG Manual blood lymphocytes/100 leukocytes 8 % NRG Manual eosinophils/100 leukocytes in nose 0 % NRG Manual blood basophils/100 leukocytes 1 % NRG Blood erythrocyte morphology finding identification NORMAL NRG Comprehensive metabolic panel - 07/04/16 19:15 Serum or plasma sodium measurement (moles/volume) 137 mmol/L 135-145 Serum or plasma potassium measurement (moles/volume) 4.2 mmol/L 3.6-5.0 Serum or plasma chloride measurement (moles/volume) 103 mmol/L 98-107 Carbon dioxide 22 mmol/L 21-32 Serum or plasma anion gap determination (moles/volume) 12 mmol/L 5-14 Serum or plasma urea nitrogen measurement (mass/volume) 26 mg/dL 7-18 Serum or plasma creatinine measurement (mass/volume) 1.96 mg/dL 0.60-1.30 Serum or plasma urea nitrogen/creatinine mass ratio 13 NRG Serum or plasma creatinine measurement with calculation of estimated glomerular filtration rate 37 NRG Serum or plasma glucose measurement (mass/volume) 106 mg/dL 70-105 Serum or plasma calcium measurement (mass/volume) 9.2 mg/dL 8.5-10.1 Serum or plasma total bilirubin measurement (mass/volume) 1.5 mg/dL 0.1-1.0 Serum or plasma alkaline phosphatase measurement (enzymatic activity/volume) 83 U/L 40-136 Serum or plasma aspartate aminotransferase measurement (enzymatic activity/volume) 19 U/L 5-34 Serum or plasma alanine aminotransferase measurement (enzymatic activity/volume) 34 U/L 0-55 Serum or plasma protein measurement (mass/volume) 6.9 g/dL 6.4-8.2 Serum or plasma albumin measurement (mass/volume) 4.2 g/dL 3.2-4.5 Serum or plasma amylase measurement (enzymatic activity/volume) - 07/04/16 19:15 Serum or plasma amylase measurement (enzymatic activity/volume) 43 U/L 25-125 Lipase - 03/09/17 19:15 Lipase 19 U/L 8-78 Serum heterophile antibody titer - 07/04/16 19:15 Serum heterophile antibody titer NEGATIVE NEGATIVE Blood lactic acid measurement (moles/volume) - 07/04/16 19:45 Blood lactic acid measurement (moles/volume) 0.94 mmol/L 0.50- 2.00 Influenza virus A and B antigen detection - 07/04/16 19:45 FLU RESULT NEGATIVE FOR INFLUENZA A AND B ANTIGENS BY IA NRG Bacterial blood culture - 07/04/16 19:45 Bacterial blood culture NG NRG Bacterial blood culture - 07/04/16 20:15 Bacterial blood culture NG NRG Complete urinalysis with reflex to culture - 07/04/16 21:30 Urine color determination YELLOW NRG Urine clarity determination SLIGHTLY CLOUDY NRG Urine pH measurement by test strip 5 5-9 Specific gravity of urine by test strip 1.020 1.016-1.022 Urine protein assay by test strip, semi-quantitative 2+ NEGATIVE Urine glucose detection by automated test strip NEGATIVE NEGATIVE Erythrocytes detection in urine sediment by light microscopy NEGATIVE NEGATIVE Urine ketones detection by automated test strip NEGATIVE NEGATIVE Urine nitrite detection by test strip NEGATIVE NEGATIVE Urine total bilirubin detection by test strip NEGATIVE NEGATIVE Urine urobilinogen measurement by automated test strip (mass/volume) NORMAL NORMAL Urine leukocyte esterase detection by dipstick 1+ NEGATIVE Automated urine sediment erythrocyte count by microscopy (number/high power field) NONE NRG Automated urine sediment leukocyte count by microscopy (number/high power field) RARE NRG Bacteria detection in urine sediment by light microscopy TRACE NRG Squamous epithelial cells detection in urine sediment by light microscopy RARE NRG Crystals detection in urine sediment by light microscopy NONE NRG Casts detection in urine sediment by light microscopy PRESENT NRG Mucus detection in urine sediment by light microscopy MODERATE NRG Complete urinalysis with reflex to culture NO NRG Hyaline casts detection in urine sediment by light microscopy 10-25 NRG Streptococcus pyogenes antigen detection - 07/04/16 21:57 Streptococcus pyogenes antigen detection NEGATIVE NEGATIVE Bacterial throat culture - 07/04/16 21:57 Bacterial throat culture NBS NRG Complete blood count (CBC) with automated white blood cell (WBC) differential - 07/05/16 05:56 Blood leukocytes automated count (number/volume) 23.0 10*3/uL 4.3-11.0 Blood erythrocytes automated count (number/volume) 4.35 10*6/uL 4.35-5.85 Venous blood hemoglobin measurement (mass/volume) 12.9 g/dL 13.3-17.7 Blood hematocrit (volume fraction) 38 % 40-54 Automated erythrocyte mean corpuscular volume 87 [foz_us] 80-99 Automated erythrocyte mean corpuscular hemoglobin (mass per erythrocyte) 30 pg 25-34 Automated erythrocyte mean corpuscular hemoglobin concentration measurement (mass/volume) 34 g/dL 32-36 Automated erythrocyte distribution width ratio 14.0 % 10.0- 14.5 Automated blood platelet count (count/volume) 252 10*3/uL 130-400 Automated blood platelet mean volume measurement 9.7 [foz_us] 7.4-10.4 Automated blood neutrophils/100 leukocytes 87 % 42-75 Automated blood lymphocytes/100 leukocytes 4 % 12-44 Blood monocytes/100 leukocytes 10 % 0-12 Automated blood eosinophils/100 leukocytes 0 % 0-10 Automated blood basophils/100 leukocytes 0 % 0-10 Blood neutrophils automated count (number/volume) 19.9 10*3 1.8-7.8 Blood lymphocytes automated count (number/volume) 0.8 10*3 1.0-4.0 Blood monocytes automated count (number/volume) 2.2 10*3 0.0- 1.0 Automated eosinophil count 0.0 10*3/uL 0.0-0.3 Automated blood basophil count (count/volume) 0.0 10*3/uL 0.0-0.1 Comprehensive metabolic panel - 07/05/16 05:56 Serum or plasma sodium measurement (moles/volume) 137 mmol/L 135-145 Serum or plasma potassium measurement (moles/volume) 3.4 mmol/L 3.6-5.0 Serum or plasma chloride measurement (moles/volume) 108 mmol/L 98-107 Carbon dioxide 19 mmol/L 21-32 Serum or plasma anion gap determination (moles/volume) 10 mmol/L 5-14 Serum or plasma urea nitrogen measurement (mass/volume) 28 mg/dL 7-18 Serum or plasma creatinine measurement (mass/volume) 1.29 mg/dL 0.60-1.30 Serum or plasma urea nitrogen/creatinine mass ratio 22 NRG Serum or plasma creatinine measurement with calculation of estimated glomerular filtration rate > NRG Serum or plasma glucose measurement (mass/volume) 116 mg/dL 70-105 Serum or plasma calcium measurement (mass/volume) 8.5 mg/dL 8.5-10.1 Serum or plasma total bilirubin measurement (mass/volume) 1.4 mg/dL 0.1-1.0 Serum or plasma alkaline phosphatase measurement (enzymatic activity/volume) 80 U/L 40-136 Serum or plasma aspartate aminotransferase measurement (enzymatic activity/volume) 43 U/L 5-34 Serum or plasma alanine aminotransferase measurement (enzymatic activity/volume) 55 U/L 0-55 Serum or plasma protein measurement (mass/volume) 5.7 g/dL 6.4-8.2 Serum or plasma albumin measurement (mass/volume) 3.4 g/dL 3.2-4.5 Complete blood count (CBC) with automated white blood cell (WBC) differential - 07/06/16 05:05 Blood leukocytes automated count (number/volume) 19.9 10*3/uL 4.3-11.0 Blood erythrocytes automated count (number/volume) 4.08 10*6/uL 4.35-5.85 Venous blood hemoglobin measurement (mass/volume) 12.1 g/dL 13.3-17.7 Blood hematocrit (volume fraction) 36 % 40-54 Automated erythrocyte mean corpuscular volume 88 [foz_us] 80-99 Automated erythrocyte mean corpuscular hemoglobin (mass per erythrocyte) 30 pg 25-34 Automated erythrocyte mean corpuscular hemoglobin concentration measurement (mass/volume) 34 g/dL 32-36 Automated erythrocyte distribution width ratio 13.7 % 10.0- 14.5 Automated blood platelet count (count/volume) 231 10*3/uL 130-400 Automated blood platelet mean volume measurement 10.0 [foz_us] 7.4-10.4 Automated blood neutrophils/100 leukocytes 85 % 42-75 Automated blood lymphocytes/100 leukocytes 7 % 12-44 Blood monocytes/100 leukocytes 8 % 0-12 Automated blood eosinophils/100 leukocytes 1 % 0-10 Automated blood basophils/100 leukocytes 0 % 0-10 Blood neutrophils automated count (number/volume) 16.8 10*3 1.8-7.8 Blood lymphocytes automated count (number/volume) 1.4 10*3 1.0-4.0 Blood monocytes automated count (number/volume) 1.6 10*3 0.0- 1.0 Automated eosinophil count 0.1 10*3/uL 0.0-0.3 Automated blood basophil count (count/volume) 0.0 10*3/uL 0.0-0.1 Clostridium difficile detection - 07/06/16 06:00 C DIFF MOLECULAR RESULT Positive for toxigenic C diff by DNA amplification NR CALL POSITIVES (F1 HELP) CALLED TO DARREL/NURSE AT [phone], 3-03-14/KD NR C DIFFICILE AG + TOXIN A/B. - 07/06/16 06:00 RESULTS INDETERMINANT; MOLECULAR TEST TO FOLLOW NRG Complete blood count (CBC) with automated white blood cell (WBC) differential - 07/07/16 05:50 Blood leukocytes automated count (number/volume) 9.6 10*3/uL 4.3-11.0 Blood erythrocytes automated count (number/volume) 4.04 10*6/uL 4.35-5.85 Venous blood hemoglobin measurement (mass/volume) 12.0 g/dL 13.3-17.7 Blood hematocrit (volume fraction) 35 % 40-54 Automated erythrocyte mean corpuscular volume 87 [foz_us] 80-99 Automated erythrocyte mean corpuscular hemoglobin (mass per erythrocyte) 30 pg 25-34 Automated erythrocyte mean corpuscular hemoglobin concentration measurement (mass/volume) 34 g/dL 32-36 Automated erythrocyte distribution width ratio 13.7 % 10.0- 14.5 Automated blood platelet count (count/volume) 233 10*3/uL 130-400 Automated blood platelet mean volume measurement 10.1 [foz_us] 7.4-10.4 Automated blood neutrophils/100 leukocytes 77 % 42-75 Automated blood lymphocytes/100 leukocytes 14 % 12-44 Blood monocytes/100 leukocytes 9 % 0-12 Automated blood eosinophils/100 leukocytes 1 % 0-10 Automated blood basophils/100 leukocytes 0 % 0-10 Blood neutrophils automated count (number/volume) 7.4 10*3 1.8-7.8 Blood lymphocytes automated count (number/volume) 1.3 10*3 1.0-4.0 Blood monocytes automated count (number/volume) 0.8 10*3 0.0- 1.0 Automated eosinophil count 0.1 10*3/uL 0.0-0.3 Automated blood basophil count (count/volume) 0.0 10*3/uL 0.0-0.1 Comprehensive metabolic panel - 07/07/16 05:50 Serum or plasma sodium measurement (moles/volume) 143 mmol/L 135-145 Serum or plasma potassium measurement (moles/volume) 3.4 mmol/L 3.6-5.0 Serum or plasma chloride measurement (moles/volume) 116 mmol/L 98-107 Carbon dioxide 20 mmol/L 21-32 Serum or plasma anion gap determination (moles/volume) 7 mmol/L 5-14 Serum or plasma urea nitrogen measurement (mass/volume) 10 mg/dL 7-18 Serum or plasma creatinine measurement (mass/volume) 0.88 mg/dL 0.60-1.30 Serum or plasma urea nitrogen/creatinine mass ratio 11 NRG Serum or plasma creatinine measurement with calculation of estimated glomerular filtration rate > NRG Serum or plasma glucose measurement (mass/volume) 106 mg/dL 70-105 Serum or plasma calcium measurement (mass/volume) 8.6 mg/dL 8.5-10.1 Serum or plasma total bilirubin measurement (mass/volume) 0.3 mg/dL 0.1-1.0 Serum or plasma alkaline phosphatase measurement (enzymatic activity/volume) 66 U/L 40-136 Serum or plasma aspartate aminotransferase measurement (enzymatic activity/volume) 13 U/L 5-34 Serum or plasma alanine aminotransferase measurement (enzymatic activity/volume) 28 U/L 0-55 Serum or plasma protein measurement (mass/volume) 5.2 g/dL 6.4-8.2 Serum or plasma albumin measurement (mass/volume) 3.0 g/dL 3.2-4.5 Complete blood count (CBC) with automated white blood cell (WBC) differential - 09/05/16 11:10 Blood leukocytes automated count (number/volume) 12.8 10*3/uL 4.3-11.0 Blood erythrocytes automated count (number/volume) 5.04 10*6/uL 4.35-5.85 Venous blood hemoglobin measurement (mass/volume) 14.9 g/dL 13.3-17.7 Blood hematocrit (volume fraction) 43 % 40-54 Automated erythrocyte mean corpuscular volume 86 [foz_us] 80-99 Automated erythrocyte mean corpuscular hemoglobin (mass per erythrocyte) 30 pg 25-34 Automated erythrocyte mean corpuscular hemoglobin concentration measurement (mass/volume) 34 g/dL 32-36 Automated erythrocyte distribution width ratio 14.1 % 10.0- 14.5 Automated blood platelet count (count/volume) 299 10*3/uL 130-400 Automated blood platelet mean volume measurement 10.2 [foz_us] 7.4-10.4 Automated blood neutrophils/100 leukocytes 82 % 42-75 Automated blood lymphocytes/100 leukocytes 10 % 12-44 Blood monocytes/100 leukocytes 7 % 0-12 Automated blood eosinophils/100 leukocytes 1 % 0-10 Automated blood basophils/100 leukocytes 0 % 0-10 Blood neutrophils automated count (number/volume) 10.5 10*3 1.8-7.8 Blood lymphocytes automated count (number/volume) 1.3 10*3 1.0-4.0 Blood monocytes automated count (number/volume) 0.9 10*3 0.0- 1.0 Automated eosinophil count 0.1 10*3/uL 0.0-0.3 Automated blood basophil count (count/volume) 0.0 10*3/uL 0.0-0.1 Comprehensive metabolic panel - 09/05/16 11:10 Serum or plasma sodium measurement (moles/volume) 140 mmol/L 135-145 Serum or plasma potassium measurement (moles/volume) 3.7 mmol/L 3.6-5.0 Serum or plasma chloride measurement (moles/volume) 106 mmol/L 98-107 Carbon dioxide 26 mmol/L 21-32 Serum or plasma anion gap determination (moles/volume) 8 mmol/L 5-14 Serum or plasma urea nitrogen measurement (mass/volume) 21 mg/dL 7-18 Serum or plasma creatinine measurement (mass/volume) 1.19 mg/dL 0.60-1.30 Serum or plasma urea nitrogen/creatinine mass ratio 18 NRG Serum or plasma creatinine measurement with calculation of estimated glomerular filtration rate > NRG Serum or plasma glucose measurement (mass/volume) 100 mg/dL 70-105 Serum or plasma calcium measurement (mass/volume) 9.4 mg/dL 8.5-10.1 Serum or plasma total bilirubin measurement (mass/volume) 0.4 mg/dL 0.1-1.0 Serum or plasma alkaline phosphatase measurement (enzymatic activity/volume) 77 U/L 40-136 Serum or plasma aspartate aminotransferase measurement (enzymatic activity/volume) 17 U/L 5-34 Serum or plasma alanine aminotransferase measurement (enzymatic activity/volume) 20 U/L 0-55 Serum or plasma protein measurement (mass/volume) 7.0 g/dL 6.4-8.2 Serum or plasma albumin measurement (mass/volume) 4.4 g/dL 3.2-4.5 Lipase - 09/05/16 11:10 Lipase 28 U/L 8-78 Complete urinalysis with reflex to culture - 09/05/16 12:26 Urine color determination YELLOW NRG Urine clarity determination CLEAR NRG Urine pH measurement by test strip 7 5-9 Specific gravity of urine by test strip 1.010 1.016-1.022 Urine protein assay by test strip, semi-quantitative NEGATIVE NEGATIVE Urine glucose detection by automated test strip NEGATIVE NEGATIVE Erythrocytes detection in urine sediment by light microscopy 4+ NEGATIVE Urine ketones detection by automated test strip NEGATIVE NEGATIVE Urine nitrite detection by test strip NEGATIVE NEGATIVE Urine total bilirubin detection by test strip NEGATIVE NEGATIVE Urine urobilinogen measurement by automated test strip (mass/volume) 1 mg/dL NORMAL Urine leukocyte esterase detection by dipstick NEGATIVE NEGATIVE Automated urine sediment erythrocyte count by microscopy (number/high power field) [HPF] NRG Automated urine sediment leukocyte count by microscopy (number/high power field) NONE NRG Bacteria detection in urine sediment by light microscopy NEGATIVE NRG Squamous epithelial cells detection in urine sediment by light microscopy RARE NRG Crystals detection in urine sediment by light microscopy PRESENT NRG Casts detection in urine sediment by light microscopy NONE NRG Mucus detection in urine sediment by light microscopy SMALL NRG Complete urinalysis with reflex to culture NO NRG Amorphous sediment detection in urine sediment by light microscopy FEW REINA PHOSPHATE NRG Lipid Panel - 05/26/17 11:10 C/HDL 5.6 3.7-6.7 Cholesterol 195 mg/dL 100-240 HDL 35 mg/dL 30-85 LDL-Calculated 122 mg/dL 0-100 Trig 188 mg/dL 35-160 VLDL 38 mg/dL 0-42 PSA Yearly Screen - 11/24/17 14:08 PSA TOTAL 0.3 ng/mL 0.0-4.0 BNP - 02/02/18 11:42 BNP <10.00 pg/ml 0.00-100.00 Complete blood count (CBC) with automated white blood cell (WBC) differential - 03/27/18 11:15 Blood leukocytes automated count (number/volume) 7.0 10*3/uL 4.3-11.0 Blood erythrocytes automated count (number/volume) 3.88 10*6/uL 4.35-5.85 Venous blood hemoglobin measurement (mass/volume) 10.2 g/dL 13.3-17.7 Blood hematocrit (volume fraction) 31 % 40-54 Automated erythrocyte mean corpuscular volume 80 [foz_us] 80-99 Automated erythrocyte mean corpuscular hemoglobin (mass per erythrocyte) 26 pg 25-34 Automated erythrocyte mean corpuscular hemoglobin concentration measurement (mass/volume) 33 g/dL 32-36 Automated erythrocyte distribution width ratio 14.2 % 10.0- 14.5 Automated blood platelet count (count/volume) 349 10*3/uL 130-400 Automated blood platelet mean volume measurement 9.7 [foz_us] 7.4-10.4 Automated blood neutrophils/100 leukocytes 66 % 42-75 Automated blood lymphocytes/100 leukocytes 21 % 12-44 Blood monocytes/100 leukocytes 11 % 0-12 Automated blood eosinophils/100 leukocytes 2 % 0-10 Automated blood basophils/100 leukocytes 0 % 0-10 Blood neutrophils automated count (number/volume) 4.6 10*3 1.8-7.8 Blood lymphocytes automated count (number/volume) 1.5 10*3 1.0-4.0 Blood monocytes automated count (number/volume) 0.7 10*3 0.0- 1.0 Automated eosinophil count 0.2 10*3/uL 0.0-0.3 Automated blood basophil count (count/volume) 0.0 10*3/uL 0.0-0.1 Comprehensive metabolic panel - 03/27/18 11:15 Serum or plasma sodium measurement (moles/volume) 140 mmol/L 135-145 Serum or plasma potassium measurement (moles/volume) 4.4 mmol/L 3.6-5.0 Serum or plasma chloride measurement (moles/volume) 111 mmol/L 98-107 Carbon dioxide 20 mmol/L 21-32 Serum or plasma anion gap determination (moles/volume) 9 mmol/L 5-14 Serum or plasma urea nitrogen measurement (mass/volume) 24 mg/dL 7-18 Serum or plasma creatinine measurement (mass/volume) 1.27 mg/dL 0.60-1.30 Serum or plasma urea nitrogen/creatinine mass ratio 19 NRG Serum or plasma creatinine measurement with calculation of estimated glomerular filtration rate > NRG Serum or plasma glucose measurement (mass/volume) 117 mg/dL 70-105 Serum or plasma calcium measurement (mass/volume) 9.2 mg/dL 8.5-10.1 Serum or plasma total bilirubin measurement (mass/volume) 0.3 mg/dL 0.1-1.0 Serum or plasma alkaline phosphatase measurement (enzymatic activity/volume) 88 U/L 40-136 Serum or plasma aspartate aminotransferase measurement (enzymatic activity/volume) 17 U/L 5-34 Serum or plasma alanine aminotransferase measurement (enzymatic activity/volume) 14 U/L 0-55 Serum or plasma protein measurement (mass/volume) 6.7 g/dL 6.4-8.2 Serum or plasma albumin measurement (mass/volume) 4.1 g/dL 3.2-4.5 CALCIUM CORRECTED 9.1 mg/dL 8.5-10.1 Serum or plasma amylase measurement (enzymatic activity/volume) - 03/27/18 11:15 Serum or plasma amylase measurement (enzymatic activity/volume) 32 U/L 25-125 Lipase - 03/27/18 11:15 Lipase 23 U/L 8-78 Complete urinalysis with reflex to culture - 03/27/18 13:00 Urine color determination YELLOW NRG Urine clarity determination CLEAR NRG Urine pH measurement by test strip 5 5-9 Specific gravity of urine by test strip 1.025 1.016-1.022 Urine protein assay by test strip, semi-quantitative 1+ NEGATIVE Urine glucose detection by automated test strip NEGATIVE NEGATIVE Erythrocytes detection in urine sediment by light microscopy 5+ NEGATIVE Urine ketones detection by automated test strip NEGATIVE NEGATIVE Urine nitrite detection by test strip NEGATIVE NEGATIVE Urine total bilirubin detection by test strip NEGATIVE NEGATIVE Urine urobilinogen measurement by automated test strip (mass/volume) NORMAL NORMAL Urine leukocyte esterase detection by dipstick NEGATIVE NEGATIVE Automated urine sediment erythrocyte count by microscopy (number/high power field) [HPF] NRG Automated urine sediment leukocyte count by microscopy (number/high power field) NONE NRG Bacteria detection in urine sediment by light microscopy NEGATIVE NRG Squamous epithelial cells detection in urine sediment by light microscopy RARE NRG Crystals detection in urine sediment by light microscopy NONE NRG Casts detection in urine sediment by light microscopy NONE NRG Mucus detection in urine sediment by light microscopy NEGATIVE NRG Complete urinalysis with reflex to culture NO NRG Methicillin resistant Staphylococcus aureus (MRSA) screening culture - 04/10/18 07:10 Methicillin resistant Staphylococcus aureus (MRSA) screening culture NEG NR Methicillin resistant Staphylococcus aureus (MRSA) screening culture - 04/14/18 09:38 Methicillin resistant Staphylococcus aureus (MRSA) screening culture NEG NR Comprehensive Metabolic Panel - 05/19/18 12:22 Albumin 4.4 g/dL 3.6-5.1 ALP 93 U/L 35-130 ALT 13 U/L 6-45 Anion Gap 10 6-14 AST 17 U/L 2-40 BUN 14 mg/dL 5-25 Calcium 8.6 mg/dL 8.3-10.4 Chloride 112 mmol/L 95-114 CO2 24 mEq/L 22-33 Creat 1.04 mg/dL 0.50-1.50 eGFR 77 mL/min/1.73m2 >59 Globulin 1.9 g/dL 2.3-3.5 Glucose 95 mg/dL 70-110 Osmo 293 280-295 Potassium 3.9 mmol/L 3.5-5.3 Sodium 142 mmol/L 134-148 TBil 0.2 mg/dL 0.2-1.2 TP 6.3 g/dL 6.0-8.3 Lipid Panel - 05/19/18 12:22 C/HDL 5.3 3.7-6.7 Cholesterol 171 mg/dL 100-240 HDL 32 mg/dL 30-85 LDL-Calculated 108 mg/dL 0-100 Trig 157 mg/dL 35-160 VLDL 31 mg/dL 0-42 Encounters ACCT No. Visit Date/Time Discharge Status Pt. Type Provider Facility Loc./Unit Complaint [id number] 05/27/2012 09:44:00 05/27/2012 23:59:59 CLS Outpatient TERENCE CARTER DO [id number] 05/15/2012 09:38:00 05/15/2012 23:59:59 CLS Outpatient [id number] 12/10/2011 13:24:00 12/10/2011 23:59:59 CLS Outpatient [id number] 12/10/2011 13:24:00 12/10/2011 23:59:59 CLS Outpatient TERENCE CARTER DO [id number] 05/19/2018 12:21:00 05/19/2018 23:59:00 DIS Outpatient NOELLE DEJESUS [id number] 02/02/2018 11:41:00 02/02/2018 23:59:00 DIS Outpatient NOELLE DEJESUS [id number] 11/24/2017 14:07:00 11/24/2017 23:59:00 DIS Outpatient Angela Huela [id number] 11/05/2017 10:55:00 11/05/2017 23:59:00 DIS Outpatient NOELLE DEJESUS [id number] 05/26/2017 11:43:00 05/26/2017 23:59:00 DIS Outpatient NOELLE DEJESUS [id number] 06/27/2016 10:27:00 06/27/2016 23:59:00 DIS Outpatient NOELLE DEJESUS [id number] 01/08/2016 08:52:00 Document Registration [id number] 06/05/2018 13:00:00 06/05/2018 23:59:59 CLS Preadmit NOELLE DEJESUS MD [facility] RT DDE,DOOR ASSEMBLER,TOBACCOISM [id number] 04/14/2018 09:11:00 04/14/2018 14:00:00 DIS Outpatient DEMETRIA CAMARILLO MD [facility] RIGHT URETERAL AND BILATERAL RENAL STONE [id number] 04/10/2018 06:47:00 04/10/2018 12:00:00 DIS Outpatient DEMETRIA CAMARILLO MD [facility] RIGHT URETERAL STONE [id number] 04/09/2018 08:41:00 04/09/2018 10:00:00 DIS Outpatient DEMETRIA CAMARILLO MD [facility] PREOP LEFT URETERAL STONE [id number] 04/08/2018 14:51:00 04/08/2018 23:59:59 CLS Outpatient DEMETRIA CAMARILLO MD [facility] RAD BILATERAL RENAL STONES [id number] 03/27/2018 10:48:00 03/27/2018 13:05:00 DIS Emergency FERNANDO ROME [facility] ER ABD PAIN [id number] 09/05/2016 09:21:00 09/05/2016 12:33:00 DIS Emergency JESSICA ZUNIGA APRN [facility] ER ABDOMINAL/BACK PAIN [id number] 07/04/2016 20:20:00 07/07/2016 15:21:00 DIS Inpatient STEPHANIE LAN DO [facility] 4TH SEPSIS,DEHYDRATION,L DISTAL URETERAL STONE,EPIGAST [id number] 10/30/2012 19:06:00 10/30/2012 23:59:59 CLS Outpatient [id number] 11/02/2018 16:24:00 ACT Emergency EZIO SANTILLAN DO [facility] ER SOB/HEART RACING/DIZZINESS [id number] 05/19/2018 12:21:00 Document Registration
[2018-11-02 16:37] VITALS: BP 143/72
--- NOTE | 2018-11-02 16:43 | NUR ---
pt to w/r no rooms available
--- NOTE | 2018-11-02 16:43 | NUR ---
resp shallow nonlabored.
--- NOTE | 2018-11-02 16:46 | NUR ---
told pt if gets worse or wants reevaluated just ask reg
== END 2018-11-02 17:10 | disposition left against medical advice (07) ==
LOC: EDUNIT# 16:23 → ER 16:24
DX: R06.00 Dyspnea, unspecified (principal); R42 Dizziness and giddiness; R00.2 Palpitations
CPT/HCPCS: 99281

== ENCOUNTER → 2018-11-03 | Outpatient (CLI) | payer BC ==
[2018-11-03 18:29] LABS: BAND NEUTROPHILS 0 %; LYMPHOCYTES % (MANUAL) 24 %; NEUTROPHILS % (MANUAL) 67 %
[2018-11-03 18:30] LABS: ANISOCYTOSIS SLIGHT; BASOPHILS % (MANUAL) 0 %; EOSINOPHILS % (MANUAL) 2 %; HYPOCHROMASIA MODERATE; MICROCYTOSIS MARKED; MONOCYTES % (MANUAL) 7 %
[2018-11-03 18:32] LABS: ELLIPT/OVALOCYTES MODERATE
== END ==
LOC: LABNPT 17:19
PROVIDERS: ATTEND Nurse Practitioner Family
DX: R06.02 Shortness of breath (principal)
CPT/HCPCS: 85007

== ENCOUNTER → 2018-11-16 | Outpatient (CLI) | payer BC ==
[2018-11-17 13:35] LABS: ABSOLUTE RETIC # 43 10e9/L (24-90)
[2018-11-17 13:56] LABS: ANISOCYTOSIS MARKED; EOSINOPHILS % (MANUAL) 2 %; HYPOCHROMASIA MARKED; LYMPHOCYTES % (MANUAL) 28 %; MICROCYTOSIS MODERATE; MONOCYTES % (MANUAL) 10 %; NEUTROPHILS % (MANUAL) 60 %; POIKILOCYTOSIS MODERATE; POLYCHROMASIA SLIGHT
[2018-11-17 13:57] LABS: ELLIPT/OVALOCYTES MARKED; SCHISTOCYTES SLIGHT; TEAR DROP CELLS MODERATE
== END ==
LOC: LABNPT 11:10
PROVIDERS: ATTEND Family Medicine
DX: D64.9 Anemia, unspecified (principal)
CPT/HCPCS: 85007; 85045

== ENCOUNTER → 2020-01-31 | Outpatient (CLI) | payer BC ==
[~2020-01-31] MED LIST changes: -HYDR-3812 PO; -METO-387 PO; +MTP25TSR PO; -OMEP20CA12 PO; +OMEP20CA18 PO; -TAMS0.4C98 PO; +TMSL.4C PO; -TRAM50TA2 PO; +TRM50T PO
[2020-01-31 10:33] LABS: BASOPHILS % (AUTO) 0 % (0-10); EOSINOPHILS # (AUTO) 0.3 10^3/uL (0.0-0.3); EOSINOPHILS % (AUTO) 4 % (0-10); HEMATOCRIT 33 % (40-54); HEMOGLOBIN 9.8 g/dL (13.3-17.7); LYMPHOCYTES # (AUTO) 1.4 10^3/uL (1.0-4.0); LYMPHOCYTES % (AUTO) 20 % (12-44); MEAN CORPUSCULAR HEMOGLOBIN 23 pg (25-34); MEAN CORPUSCULAR HGB CONC 30 g/dL (32-36); MEAN CORPUSCULAR VOLUME 77 fL (80-99); MEAN PLATELET VOLUME 9.6 fL (9.0-12.2); MONOCYTES # (AUTO) 0.6 10^3/uL (0.0-1.0); MONOCYTES % (AUTO) 9 % (0-12); NEUTROPHILS # (AUTO) 4.7 10^3/uL (1.8-7.8); NEUTROPHILS % (AUTO) 67 % (42-75); PLATELET COUNT 340 10^3/uL (130-400); WHITE BLOOD COUNT 7.1 10^3/uL (4.3-11.0)
[2020-01-31 10:52] LABS: ALANINE AMINOTRANSFERASE 15 U/L (0-55); ALBUMIN 4.2 GM/DL (3.2-4.5); ALKALINE PHOSPHATASE 90 U/L (40-136); BILIRUBIN,TOTAL 0.2 MG/DL (0.1-1.0); BUN/CREATININE RATIO 15; CARBON DIOXIDE 18 MMOL/L (21-32); CHLORIDE 108 MMOL/L (98-107); GFR ESTIMATED > 60; GLUCOSE 113 MG/DL (70-105); POTASSIUM 3.7 MMOL/L (3.6-5.0); SODIUM 139 MMOL/L (135-145); TOTAL PROTEIN 6.8 GM/DL (6.4-8.2)
--- NOTE | 2020-01-31 11:17 | Diagnostic Imaging Report ---
INDICATION: Near-syncopal episodes of shortness of air. Time of exam: 10:36 AM No prior studies available for comparison. The heart size normal. There appears to be a large hiatal hernia. The lungs are clear. No infiltrates are detected. There is no effusion or pneumothorax. IMPRESSION: Large hiatal hernia. No other significant abnormality is detected. Dictated by: Dictated on workstation # [id number]
== END ==
LOC: RAD 10:11
PROVIDERS: ATTEND Family Medicine
DX: K44.9 Diaphragmatic hernia without obstruction or gangrene (principal); R06.02 Shortness of breath
CPT/HCPCS: 36415; 71046; 80053; 82728; 83540; 85025

== ENCOUNTER 2020-02-09 05:29 | Outpatient (RCR) | payer BC, OTHER ==
[~2020-02-09] VITALS: Ht 180.3 cm; Wt 127.2 kg
[~2020-02-09 05:29] MED LIST changes: +FERR-84 PO; +METO50TA7 PO; +OMEP40CA27 PO
[2020-02-11] MEDS ORDERED: PANT40TA2 PO (10:21)
== END 2020-02-09 10:42 | disposition home or self-care (01) ==
LOC: PREOP 05:29
PROVIDERS: ATTEND Surgery
DX: Z01.818 Encounter for other preprocedural examination (principal); Z01.812 Encounter for preprocedural laboratory examination; K21.9 Gastro-esophageal reflux disease without esophagitis; Z20.828 Contact with and (suspected) exposure to other viral communicable diseases
CPT/HCPCS: 87635

== ENCOUNTER 2020-02-11 09:20 | Day surgery (SDC) | payer BC, OTHER ==
[2020-02-11] VITALS (13 sets, daily range): BP systolic 126–157; BP diastolic 71–98
[~2020-02-11] VITALS: Ht 180.3 cm; Wt 127.2 kg
[2020-02-11] MEDS ORDERED: NS IV 500 ML 500 ML IV PRN (09:38)
[2020-02-11] MEDS ORDERED: NS IV 500 ML 500 ML ONE (09:44)
[2020-02-11] MEDS ORDERED: MIDAZOLAM 5 MG/5 ML (VERSED) VIAL IV ONE (09:45)
[2020-02-11] MEDS ORDERED: fentaNYL INJECTION 100 MCG/2 ML AMP IVP ONE (09:45)
[2020-02-11] MEDS ORDERED: HURRICAINE EXT TUBE (BENZOCAINE) XX PRN (09:45)
[2020-02-11] MEDS ORDERED: LIDOCAINE JELLY 2% 6 ML SYRINGE MM PRN (09:45)
[2020-02-11] MEDS ORDERED: fentaNYL INJECTION 100 MCG/2 ML AMP ONE (10:11)
[2020-02-11] MEDS ORDERED: MIDAZOLAM 5 MG/5 ML (VERSED) VIAL ONE ×2 (10:11)
[2020-02-11] MEDS ORDERED: LIDOCAINE JELLY 2% 6 ML SYRINGE ONE (10:11)
--- NOTE | 2020-02-11 10:18 | Conscious Sedation/ASA ---
Conscious Sedation Pre-Proced Time 10:00 ASA Score 2 For ASA 3 and 4: Consider anesthesia and medical clearance. Also, for patients with a history of failed moderate sedation consider anesthesia. Airway Lungs Heart ASA score ASA 1: a normal healthy patient ASA 2: a patient with a mild systemic disease (mid diabetes, controlled hypertension, obesity ASA 3: a patient with a severe systemic disease that limits activity (angina, COPD, prior Myocardial infarction) ASA 4: a patient with an incapacitating disease that is a constant threat to life (CHF, renal failure) ASA 5: a moribund patient not expected to survive 24 hrs. (ruptured aneurysm) ASA 6: a declared brain- patient whose organs are being harvested. For emergent operations, add the letter E after the classification Mallampati Classification Grade 2 Sedation Plan Analgesia, Amnesia, Plan communicated to team members, Discussed options with patient/fam, Discussed risks with patient/fam The patient is an appropriate candidate to undergo the planned procedure, sedation, and anesthesia. The patient immediately re-assessed prior to indication. SUMAYA WATSON MD Feb 11, 2020 10:18
--- NOTE | 2020-02-11 10:19 | Progress Note-Pre Operative ---
Pre-Operative Progress Note H&P Reviewed The H&P was reviewed, patient examined and no changes noted. Date Seen by Provider: Feb 11, 2020 Time Seen by Provider: 10:00 Date H&P Reviewed: Feb 11, 2020 Time H&P Reviewed: 10:00 Pre-Operative Diagnosis: GERD, dysphagia SUMAYA WATSON MD Feb 11, 2020 10:19
[2020-02-11] MEDS ORDERED: PANT40TA2 PO (10:21)
--- NOTE | 2020-02-11 10:22 | Discharge Inst-Surgical ---
D/C Lap Instructions-WALTER New, Converted, or Re-Newed RX: RX on Chart Follow Up Appt in 2 weeks Activity as tolerated High Fiber Diet 25g or more per day Avoid Alcohol, Caffeine, Spicy [place] and Acid foods. Drink 64 fluid oz or more of fluids per day. Symptoms to Report: Fever over 101 degree F, Nausea/Vomiting If any problems/questions: Contact your physician or go to Emergency Room SUMAYA WATSON MD Feb 11, 2020 10:21
[2020-02-11] MEDS ORDERED: ONDANSETRON 4 MG/2 ML (SDV) Z0FRAN IVP PRN (10:30)
[2020-02-11] MEDS ORDERED: HYDROcodone/APAP 5 MG/325 MG (LORTAB) TAB PO PRN (10:30)
[2020-02-11] MEDS ORDERED: morphine INJ 10 MG/ML 1ML (SYR OR VIAL) IVP PRN ×2 (10:30)
[2020-02-11] MEDS ORDERED: ACETAMINOPHEN 325 MG TABLET PO PRN (10:30)
--- NOTE | 2020-02-11 19:26 | OPERATIVE REPORT ---
DATE OF SERVICE: 02/11/2020 ATTENDING PRIMARY CARE PHYSICIAN: Maura Nunez MD PREOPERATIVE DIAGNOSES: Gastroesophageal reflux disease, dysphagia. POSTOPERATIVE DIAGNOSES: Reflux esophagitis between stage II and III with a mild distal esophageal stricture, small hiatal hernia approximately 2.5 cm in size, moderate severity gastritis. No distal obstructions. PROCEDURE: EGD with biopsy and balloon dilatation. SURGEON: Sumaya Watson MD ANESTHESIA: Conscious sedation. ESTIMATED BLOOD LOSS: Minimal. FINDINGS: Reflux esophagitis between stage II and III with a mild distal esophageal stricture, small hiatal hernia approximately 2.5 cm in size, moderate severity gastritis. No distal obstructions. DISPOSITION: The patient tolerated the procedure well. INDICATIONS: The patient is a 49-year-old male with a longstanding history of gastroesophageal reflux disease, which has progressed to the point where he does experience dysphagia approximately 2 times a month. He has been on acid reducers in the past and is currently on omeprazole 40 mg daily. He does have a number of risk factors for acid indigestion as well as acid reflux including smoking, chewing tobacco as well as taking in greater than 4 liters of caffeinated dark tello on a daily basis. DESCRIPTION OF PROCEDURE: The patient was brought to the endoscopy suite, laid in left lateral decubitus position with head slightly elevated. After adequate IV pain and stated medications and conscious sedation anesthesia, the mouthpiece was applied. The endoscope was placed in the mouth, visualizing the pharynx and hypopharyngeal region. Vocal cords, epiglottis and vallecula identified and appeared to be normal. The endoscope was gently abated esophageal opening and esophagus insufflated. The endoscope was then advanced to the first, second and third portion of esophagus at the level of GE junction, a reflux esophagitis between stage II and III identified. There was a mild distal esophageal stricture and Schatzki's ring also identified. Biopsy was taken of this region with forceps with visualization of good hemostasis. The endoscope was then advanced in the stomach and endoscope retroflexed visualizing small hiatal hernia approximately 2.5 cm in size. There was a moderate severity gastritis more towards the stomach antrum. No formal ulcerations, polyps, or any neoplasms. A biopsy was taken of the antrum to rule out H. pylori with visualization of good hemostasis. The endoscope was then advanced through the pylorus and the first and second portion of the duodenum, which appeared normal with no distal obstructions. The endoscope was then slowly withdrawn while taking a second look and suctioning of residual air with no additional findings. The patient tolerated the procedure well. We will recommend the necessary lifestyle and diet accommodation including small and more frequent meals, avoidance of eating at night as well as head elevation while lying supine. He also needs to proceed with smoking and chewing tobacco cessation as well as moderation of caffeinated beverages, especially dark tello and coffee. We will also start him on Protonix 40 mg daily as well as Carafate 1 gram q.i.d. for the next 2 weeks, then on a p.r.n. basis. We then proceeded with dilatation of distal esophageal stricture. The balloon was placed in the stomach and pulled back to the area of the stricture. We first proceeded to 2 and then 4 atmospheres of pressure. We then proceeded to 6 atmospheres of pressure or 20 mm in luminal diameter with mild to moderate resistance and left this in place for 60 seconds. The balloon was desufflated and removed with visualization of good hemostasis as well as no mucosal tears. The endoscope was then slowly withdrawn while taking a second look and suctioning of residual air with no additional findings. Job ID: [id number] DocumentID: [id number] Dictated Date: 02/11/2020 10:49:27 Wine Steward Date: 02/11/2020 19:25:48 Dictated By: SUMAYA WATSON MD
== END 2020-02-11 11:25 | disposition home or self-care (01) ==
LOC: ENDO 09:20
PROVIDERS: ATTEND Surgery
DX: K21.00 Gastro-esophageal reflux disease with esophagitis, without bleeding (principal); K44.9 Diaphragmatic hernia without obstruction or gangrene; K29.70 Gastritis, unspecified, without bleeding; I10 Essential (primary) hypertension; F32.9 Major depressive disorder, single episode, unspecified; F17.210 Nicotine dependence, cigarettes, uncomplicated; Z79.899 Other long term (current) drug therapy

== ENCOUNTER → 2020-03-03 | Outpatient (CLI) | payer BC, OTHER ==
[~2020-03-03] MED LIST changes: +PANT40TA2 PO
--- NOTE | 2020-03-03 09:01 | Diagnostic Imaging Report ---
PROCEDURE: US Gallbladder. TECHNIQUE: Multiple real-time grayscale images were obtained over the right upper quadrant in various projections. INDICATION: Gastroesophageal reflux disease with nausea and vomiting. FINDINGS: Liver is mildly enlarged 18.5 cm. No discrete liver mass is identified. The portal vein is patent and shows normal direction of flow. Gallbladder is without stones or sludge. No wall thickening or pericholecystic fluid is identified. There is no biliary ductal dilatation. The pancreas is obscured. Aorta is obscured. IVC is patent. Right kidney is without evidence of hydronephrosis. There is no ascites. IMPRESSION: 1. Mild hepatomegaly. 2. No evidence of cholelithiasis or acute cholecystitis. Dictated by: Dictated on workstation # [id number]
== END ==
LOC: RAD 08:00
PROVIDERS: ATTEND Surgery
DX: K21.9 Gastro-esophageal reflux disease without esophagitis (principal); R11.2 Nausea with vomiting, unspecified; R16.0 Hepatomegaly, not elsewhere classified
CPT/HCPCS: 76705

== ENCOUNTER → 2020-03-10 | Outpatient (CLI) | payer OTHER ==
[~2020-03-10] MED LIST changes: +CATHETER FLUSH 10 ML SYR IV PRN
--- NOTE | 2020-03-10 13:16 | Diagnostic Imaging Report ---
INDICATION: Abdominal pain Nuclear hepatobiliary study performed in the routine fashion with 5.48 mCi of technetium 99m Choletec injected intravenously. There is prompt uptake of the tracer by the liver. Tracer is visualized in the biliary tree within 10 to 15 minutes. Tracer is visualized in the gallbladder within 20 minutes. Tracer is visualized in the small bowel within 25 minutes. After one hour, the patient was given Ensure orally. Gallbladder ejection fraction was calculated. Calculated gallbladder ejection fraction was 49%. IMPRESSION: Unremarkable nuclear hepatobiliary study. Dictated by: Dictated on workstation # [id number]
== END ==
LOC: CARD 10:00
PROVIDERS: ATTEND Surgery
DX: K21.9 Gastro-esophageal reflux disease without esophagitis (principal)
CPT/HCPCS: 78227; A9537

== ENCOUNTER → 2021-07-24 | Outpatient (CLI) | payer OTHER ==
[~2021-07-24] MED LIST changes: -CATHETER FLUSH 10 ML SYR IV PRN; -LISI40TA PO; +LISI40TA9 PO; -OMEP40CA27 PO; +OMEP40CA6 PO; +SERT-414 PO; -SERT100T8 PO; -SULF1TAB35 PO; +SULF1TAB38 PO
--- NOTE | 2021-07-24 11:29 | Diagnostic Imaging Report ---
EXAMINATION: Lumbar spine radiographs, 3 views. COMPARISON: None. HISTORY: 51-year-old male, low back pain. FINDINGS: The alignment of the lumbar spine is unremarkable. The lumbar disc heights are well preserved. There are mild endplate degenerative related changes at L3-L4 and L4-L5. The facet joints appear unremarkable. Unremarkable appearance of the sacroiliac joints. There is no identified compression deformity or fracture. IMPRESSION: 1. Very mild disc degenerative changes at L3-L4 and L4-L5 with relatively well preserved disc heights. 2. Unremarkable appearance of the facet articulations. 3. Intact sacroiliac joints. Dictated by: Dictated on workstation # [id number]
--- NOTE | 2021-07-24 11:36 | Diagnostic Imaging Report ---
HISTORY: Bilateral knee pain. TECHNIQUE: 2 views of the bilateral knees COMPARISON: None FINDINGS: Right knee: No acute fracture or dislocation is seen in the right knee. Alignment is normal. There is a well-corticated ossific fragment at the tibial tuberosity. There is a small right knee joint effusion. Joint spaces are generally preserved. Left knee: There is marked degenerative change in the medial compartment of the left knee and moderate in the lateral compartment. Well-corticated ossific fragments are seen in the tibial tuberosity and there is a moderate left knee joint effusion. There are mild degenerative changes in the patellofemoral compartment. IMPRESSION: 1. Degenerative changes in the left knee, most severe in the medial compartment. 2. Ossific fragments of the tibial tuberosity bilaterally, may be from old [place]-Schlatter disease. 3. Bilateral knee joint effusions, left greater than right. Dictated by: Dictated on workstation # [id number]
== END ==
LOC: RAD
PROVIDERS: ATTEND Family Medicine
DX: Z02.71 Encounter for disability determination (principal)
CPT/HCPCS: 72100

== ENCOUNTER 2021-09-15 17:26 | Emergency (ER) | payer SELFPAY ==
[~2021-09-15] VITALS: Ht 180 cm; Wt 113.0 kg
[2021-09-15] MEDS ORDERED: FAMOTIDINE 20 MG (PEPCID) TABLET PO STA (17:52)
--- NOTE | 2021-09-15 17:56 | ED Cardiac General ---
History of Present Illness General Chief Complaint: Chest Pain Stated Complaint: SOB/HEADACHE/CP X "COUPLE OF MONTHS" Source: patient Exam Limitations: no limitations History of Present Illness Date Seen by Provider: September 15, 2021 Time Seen by Provider: 17:53 Initial Comments Patient is a 51-year-old male with a history of hypertension, smoking, family cardiac history, history of GERD presents ED with a dull substernal chest pain. Pain has been intermittent over the past 2 months until the past week. Pain has been constant. No radiation. Reports nausea without vomiting or diarrhea. States pain appears to be worse with eating. Does wake up with indigestion. Currently takes omeprazole for his GERD. Denies excessive NSAID use or alcohol use. He does have associated shortness of breath. History of anemia and states this feels very similar. No known history of coronary artery disease, COPD.. Denies any wheezing or current cough. Denies headache, dizziness, focal neural deficits, fever, neck pain, back pain, dysuria, increased urine frequency, dark tarry stool Allergies and Home Medications Allergies Coded Allergies: No Known Drug Allergies (Unverified , 03/21/08) Patient Home Medication List Home Medication List Reviewed: Yes Acetazolamide (Acetazolamide) 125 Mg Tablet, 125 TAB HS, (Reported) Entered as Reported by: MULUGETA PADILLA on 07/05/16 1004 Ferrous Sulfate (Iron) 325 Mg Tablet, 325 MG PO DAILY, (Reported) Entered as Reported by: ARACELY ONEILL on 02/08/20 1047 Lisinopril (Lisinopril) 40 Mg Tablet, 40 MG PO HS, (Reported) Entered as Reported by: MULUGETA PADILLA on 07/05/16 1004 Metoprolol Succinate (Metoprolol Succinate) 50 Mg Tab.er.24h, 50 MG PO DAILY, (Reported) Entered as Reported by: ARACELY ONEILL on 02/08/20 1047 Omeprazole (Omeprazole) 40 Mg Capsule.dr, 40 MG PO DAILY, (Reported) Entered as Reported by: ARACELY ONEILL on 02/08/20 1047 Pantoprazole Sodium (Protonix) 40 Mg Tablet.dr, 40 MG PO DAILY Prescribed by: SUMAYA WATSON on 02/11/20 1021 Pantoprazole Sodium (Protonix) 40 Mg Tablet.dr, 40 MG PO DAILY Prescribed by: EYAL TUCKER on 09/15/211852 Sertraline HCl (Sertraline HCl) 100 Mg Tablet, 100 MG PO HS, (Reported) Entered as Reported by: MULUGETA PADILLA on 07/05/16 100 Sucralfate (Carafate) 1 Gram Tablet, 1 GM PO QID Prescribed by: EYAL TUCKER on 09/15/211852 Tramadol HCl (Tramadol HCl) 50 Mg Tablet, 100 MG PO Q8H PRN for PAIN, (Reported) Entered as Reported by: MULUGETA PADILLA on 07/05/16 100 Review of Systems Review of Systems Constitutional: No chills, No diaphoresis, No malaise, No weakness EENTM: No Eye Pain Respiratory: Denies Cough; Shortness of Air; Denies Wheezing Cardiovascular: Chest Pain; Denies Edema Gastrointestinal: Abdominal Pain; Denies Diarrhea; Nausea; Denies Vomiting Genitourinary: Denies Burning, Denies Discharge Musculoskeletal: No see HPI, No back pain, No joint pain Skin: No change in color, No change in hair/nails All Other Systems Reviewed Negative Unless Noted: Yes Past Ujnwwjy-Qqayec-Dqauva Hx Immunizations Up To Date Tetanus Booster (TDap): Unknown PED Vaccines UTD: No Seasonal Allergies Seasonal Allergies: No Past Medical History Surgeries: Yes (FACIAL RECONSTRUCTION SURGERY; KIDNEY STONE REMOVAL) Appendectomy, Renal Respiratory: No Cardiac: Yes Hypertension Neurological: No Reproductive Disorders: No Sexually Transmitted Disease: No Genitourinary: Yes Kidney Stones Gastrointestinal: Yes Gastroesophageal Reflux, Hiatal Hernia Musculoskeletal: No Endocrine: No HEENT: No Cancer: No Psychosocial: Yes Depression Integumentary: No Blood Disorders: Yes (anemia) Adverse Reaction/Blood Tranf: No (had 6 units without problems) Family Medical History Completed stroke 19 MOTHER Diabetes mellitus 19 MOTHER Headache disorder 19 FATHER Hypertension 19 FATHER 19 MOTHER G8 BROTHER G8 BROTHER G8 BROTHER G8 BROTHER G8 SISTER G8 SISTER G8 SISTER G8 SISTER Physical Exam Vital Signs Vital Signs - First Documented 09/15/21 17:43 Temp 36.7 Pulse 68 Resp 24 B/P (MAP) 173/121 (138) Pulse Ox 98 O2 Delivery Room Air Capillary Refill : Height, Weight, BMI Height: 5'11.00" Weight: 255lbs. 4.0oz. 115.341390gg; 39.12 BMI Method:Stated General Appearance: No Apparent Distress HEENT: PERRL/EOMI, TMs Normal, Normal ENT Inspection, Pharynx Normal Neck: Full Range of Motion, Normal Inspection, Non Tender, Supple Respiratory: Chest Non Tender, Lungs Clear, Normal Breath Sounds, No Accessory Muscle Use, No Respiratory Distress Cardiovascular: Regular Rate, Rhythm, No Edema, No Gallop, No JVD, No Murmur Gastrointestinal: Normal Bowel Sounds, No Organomegaly, No Pulsatile Mass, Tenderness (Epigastric tenderness on palpation) Neurologic/Psychiatric: Alert, Oriented x3, No Motor/Sensory Deficits, Normal Mood/Affect, third helper II-XII Norm as Tested Skin: Normal Color, Warm/Dry Progress/Results/Core Measures Results/Orders Lab Results Laboratory Tests Test 09/15/21 17:52 Range/Units White Blood Count 7.3 4.3-11.0 10^3/uL Red Blood Count 5.03 4.30-5.52 10^6/uL Hemoglobin 12.6 L 13.3-17.7 g/dL Hematocrit 39 L 40-54 % Mean Corpuscular Volume 78 L 80-99 fL Mean Corpuscular Hemoglobin 25 25-34 pg Mean Corpuscular Hemoglobin Concent 32 32-36 g/dL Red Cell Distribution Width 16.6 H 10.0-14.5 % Platelet Count 288 130-400 10^3/uL Mean Platelet Volume 9.8 9.0-12.2 fL Immature Granulocyte % (Auto) 0 % Neutrophils (%) (Auto) 67 42-75 % Lymphocytes (%) (Auto) 22 12-44 % Monocytes (%) (Auto) 9 0-12 % Eosinophils (%) (Auto) 2 0-10 % Basophils (%) (Auto) 0 0-10 % Neutrophils # (Auto) 4.9 1.8-7.8 10^3/uL Lymphocytes # (Auto) 1.6 1.0-4.0 10^3/uL Monocytes # (Auto) 0.7 0.0-1.0 10^3/uL Eosinophils # (Auto) 0.2 0.0-0.3 10^3/uL Basophils # (Auto) 0.0 0.0-0.1 10^3/uL Immature Granulocyte # (Auto) 0.0 0.0-0.1 10^3/uL Prothrombin Time 13.2 12.2-14.7 SEC INR Comment 1.0 0.8-1.4 Activated Partial Thromboplast Time 31 24-35 SEC Sodium Level 138 135-145 MMOL/L Potassium Level 4.0 3.6-5.0 MMOL/L Chloride Level 108 H 98-107 MMOL/L Carbon Dioxide Level 20 L 21-32 MMOL/L Anion Gap 10 5-14 MMOL/L Blood Urea Nitrogen 9 7-18 MG/DL Creatinine 0.90 0.60-1.30 MG/DL Estimat Glomerular Filtration Rate 105 BUN/Creatinine Ratio 10 Glucose Level 101 70-105 MG/DL Calcium Level 9.4 8.5-10.1 MG/DL Corrected Calcium 9.2 8.5-10.1 MG/DL Magnesium Level 1.9 1.6-2.4 MG/DL Total Bilirubin 0.3 0.1-1.0 MG/DL Aspartate Amino Transf (AST/SGOT) 15 5-34 U/L Alanine Aminotransferase (ALT/SGPT) 17 0-55 U/L Alkaline Phosphatase 96 40-136 U/L Myoglobin 38.9 10.0-92.0 NG/ML Troponin I < 0.028 <0.028 NG/ML B-Type Natriuretic Peptide 21.1 <100.0 PG/ML Total Protein 7.1 6.4-8.2 GM/DL Albumin 4.2 3.2-4.5 GM/DL Lipase 46 8-78 U/L My Orders Orders - BYRON CROWELL PA Ekg Tracing (09/15/21 17:44) Cbc With Automated Diff (09/15/21 17:51) Magnesium (09/15/21 17:51) Chest 1 View, Ap/Pa Only (09/15/21 17:51) Comprehensive Metabolic Panel (09/15/21 17:51) Myoglobin Serum (09/15/21 17:51) Protime With Inr (09/15/21 17:51) Partial Thromboplastin Time (09/15/21 17:51) Monitor-Rhythm Ecg Trace Only (09/15/21 17:51) Ed Iv/Invasive Line Start (09/15/21 17:51) Bnp [place] (09/15/21 17:51) Troponin I [place] (09/15/21 17:51) Aspirin Chewable Tablet (Baby Aspirin Ch (09/15/21 18:00) Lipase (09/15/21 17:51) Lidocaine 2% Viscous 15 Ml (Xylocaine Vi (09/15/21 18:00) Famotidine Tablet (Pepcid Tablet) (09/15/21 17:52) Antacid Suspension (Mylanta Suspension (09/15/21 18:00) Medications Given in ED Current Medications Medications Dose Ordered Sig/Selene Route Start Time Stop Time Status Last Admin Dose Admin Al Hydrox/Mg Hydrox/Simethicone 30 ml ONCE ONCE PO 09/15/21 18:00 09/15/21 18:01 DC 09/15/21 17:58 30 ML Aspirin 324 mg ONCE ONCE PO 09/15/21 18:00 09/15/21 18:01 DC 09/15/21 17:57 324 MG Lidocaine HCl 15 ml ONCE ONCE PO 09/15/21 18:00 09/15/21 18:01 DC 09/15/21 17:58 15 ML Vital Signs/I&O 09/15/21 09/15/21 17:43 18:59 Temp 36.7 36.2 Pulse 68 74 Resp 24 16 B/P (MAP) 173/121 (138) 159/110 Pulse Ox 98 98 O2 Delivery Room Air Room Air Departure Communication (PCP) Patient with substernal chest pain epigastric pain for the past 2 months worse over the past week. No radiation. Indigestion with worsening pain after eating and at night. Currently on omeprazole. Patient EKG showed sinus rhythm with age-indeterminate anterior septal myocardial infarct. Does have cardiac risk factors. Constant chest pain over the past week. EKG without evidence of ST elevation or depression. Normal troponin. Chest x-ray negative for pneumonia, pneumothorax. Normal white blood count, liver enzymes and pancreatic enzymes. Patient was given GI cocktail with resolution of pain. He states pain is much better. Did receive an aspirin. Symptoms are more concerning for gastritis, GERD versus peptic ulcer disease. Patient abdomen is soft. No surgical abdomen. Reassuring lab work. Discussed changing omeprazole to Protonix and adding Carafate if secondary to a developing ulcer to help coat the stomach. Would recommend following up with GI for further evaluation. If any worsening symptoms strongly recommend returning back to ED for further evaluation. Outpatient follow-up primary care physician. Continue monitoring blood pressure. He is on 3 different medication. Patient discussed diet changes. Avoid eating late at night. Elevate bed at night. Return precaution were discussed with patient Impression Primary Impression: Chest pain Additional Impression: Epigastric abdominal pain Disposition: HOME, SELF-CARE Condition: Stable Departure-Patient Inst. Decision time for Depature: 18:51 Referrals: JEROD SOTO MD (PCP/Family) Primary Care Physician CAROL DUPREE DO Patient Instructions: Gastritis (DC) Add. Discharge Instructions: Recommend starting Protonix instead of the omeprazole. We will add on Carafate if related to potential ulcer. Recommend following up with your primary care physician for further evaluation. Continue monitoring blood pressure. Recomme nd diet changes. Avoid eating late at night elevate bed at night. If any worsening symptoms return back to ED for further evaluation. May consider following up with cardiology for further evaluation. All discharge instructions reviewed with patient and/or family. Voiced understanding. Scripts Pantoprazole Sodium (Protonix) 40 Mg Tablet.dr 40 MG PO DAILY, #20 TAB Prov: BYRON CROWELL 09/15/21 Sucralfate (Carafate) 1 Gram Tablet 1 GM PO QID, #40 TAB Prov: BYRON CROWELL 09/15/21 BYRON CROWELL September 15, 2021 17:56
[2021-09-15 18:00] LABS: BASOPHILS % (AUTO) 0 % (0-10); EOSINOPHILS # (AUTO) 0.2 10^3/uL (0.0-0.3); EOSINOPHILS % (AUTO) 2 % (0-10); HEMATOCRIT 39 % (40-54); HEMOGLOBIN 12.6 g/dL (13.3-17.7); LYMPHOCYTES # (AUTO) 1.6 10^3/uL (1.0-4.0); LYMPHOCYTES % (AUTO) 22 % (12-44); MEAN CORPUSCULAR HEMOGLOBIN 25 pg (25-34); MEAN CORPUSCULAR HGB CONC 32 g/dL (32-36); MEAN CORPUSCULAR VOLUME 78 fL (80-99); MEAN PLATELET VOLUME 9.8 fL (9.0-12.2); MONOCYTES # (AUTO) 0.7 10^3/uL (0.0-1.0); MONOCYTES % (AUTO) 9 % (0-12); NEUTROPHILS # (AUTO) 4.9 10^3/uL (1.8-7.8); NEUTROPHILS % (AUTO) 67 % (42-75); PLATELET COUNT 288 10^3/uL (130-400); WHITE BLOOD COUNT 7.3 10^3/uL (4.3-11.0)
[2021-09-15] MEDS ORDERED: LIDOCAINE 2% VISCOUS 15 ML UDC PO ONE (18:00)
[2021-09-15] MEDS ORDERED: ANTACID SUSP 30 ML UDC (MYLANTA) PO ONE (18:00)
[2021-09-15] MEDS ORDERED: ASPIRIN 81 MG CHEW (CHILDREN'S ASA) PO ONE (18:00)
[2021-09-15 18:14] LABS: ALBUMIN 4.2 GM/DL (3.2-4.5)
[2021-09-15 18:15] LABS: CALCIUM 9.4 MG/DL (8.5-10.1); PROTHROMBIN TIME PATIENT 13.2 SEC (12.2-14.7)
[2021-09-15 18:16] LABS: TOTAL PROTEIN 7.1 GM/DL (6.4-8.2)
[2021-09-15 18:18] LABS: BILIRUBIN,TOTAL 0.3 MG/DL (0.1-1.0)
[2021-09-15 18:20] LABS: CREATININE SERUM 0.9 MG/DL (0.60-1.30)
--- NOTE | 2021-09-15 18:22 | Diagnostic Imaging Report ---
EXAMINATION: Chest 1 view. HISTORY: Chest pain. COMPARISON: 01/31/2020. FINDINGS: Heart size and pulmonary vasculature are normal. The lungs are clear without consolidation, pleural effusion or pneumothorax. The osseous structures are intact. Stable appearance of the hiatal hernia. IMPRESSION: No acute radiographic abnormality in the chest. Dictated by: Dictated on workstation # [id number]
[2021-09-15 18:23] LABS: MAGNESIUM 1.9 MG/DL (1.6-2.4)
[2021-09-15 18:24] LABS: LIPASE 46 U/L (8-78)
[2021-09-15] MEDS ORDERED: SUCR1TAB36 PO (18:53)
[2021-09-15] MEDS ORDERED: PANT40TA2 PO (18:53)
[2021-09-15 18:59] VITALS: BP 159/110
== END 2021-09-15 19:00 | disposition home or self-care (01) ==
LOC: EDUNIT# 17:26 → ER 17:27
DX: R07.2 Precordial pain (principal); R10.13 Epigastric pain; K21.9 Gastro-esophageal reflux disease without esophagitis; Z90.49 Acquired absence of other specified parts of digestive tract; Z79.899 Other long term (current) drug therapy
CPT/HCPCS: 36415; 71045; 80053; 83690; 83735; 83874; 83880; 84484; 85025; 85610; 85730; 93005; 93041

== ENCOUNTER 2022-05-02 18:00 | Emergency (ER) | payer SELFPAY ==
[~2022-05-02] VITALS: Ht 180 cm; Wt 104.0 kg
[~2022-05-02 18:00] MED LIST changes: +SUCR1TAB36 PO
[2022-05-02] MEDS ORDERED: NS IV 1000 ML 1,000 ML IV STA (18:43)
[2022-05-02] MEDS ORDERED: ONDANSETRON 4 MG/2 ML (SDV) Z0FRAN IVP ONE (18:45)
--- NOTE | 2022-05-02 18:53 | ED Abdominal Pain ---
General Chief Complaint: Abdominal/GI Problems Stated Complaint: N/V,ABD PAIN,BACK PAIN,PALENESS Nursing Triage Note: PT AMB TO [facility] 4 WITH COMPLAINTS OF ABD PAIN AND N/V X3 MONTHS AND LEFT LOWER BACK PAIN X1 WEEK. PT TOOK MILK MAG TODAY BUT HAD NO RELIEF. Source of Information: Patient, Spouse Exam Limitations: No Limitations History of Present Illness Date Seen by Provider: May 02, 2022 Time Seen by Provider: 18:22 Initial Comments 51-year-old male presents with for complaints of nausea with dry heaving x3 months, abdominal and left flank pain starting a week ago, heartburn starting today, 1 episode coffee-ground emesis this morning, and runny bowel movement 30 minutes prior to arrival that was black in color. Reports his stool has been black for the last week. Patient denies taking Pepto-Bismol, is supposed to take iron but has not been taking for at least 2 weeks. Patient has a history of anemia, has had a colonoscopy and EGD that was negative for pertinent findings. Past medical history also includes arthritis, GERD, hypertension, patient is on several medications for hypertension, also takes tramadol and meloxicam for arthritis, and is on omeprazole for GERD. provided a list of medications. Denies chest pain, shortness of air. Reports feeling feverish with sweating, denies chills. Severity/Quality: Moderate Location: Generalized Abdomen Allergies and Home Medications Allergies Coded Allergies: No Known Drug Allergies (Unverified , 03/21/08) Patient Home Medication List Home Medication List Reviewed: Yes Acetazolamide (Acetazolamide) 125 Mg Tablet, 125 TAB HS, (Reported) Entered as Reported by: MULUGETA PADILLA on 07/05/16 1004 Ferrous Sulfate (Iron) 325 Mg Tablet, 325 MG PO DAILY, (Reported) Entered as Reported by: ARACELY ONEILL on 02/08/20 1047 Lisinopril (Lisinopril) 40 Mg Tablet, 40 MG PO HS, (Reported) Entered as Reported by: MULUGETA PADILLA on 07/05/16 1004 Metoprolol Succinate (Metoprolol Succinate) 50 Mg Tab.er.24h, 50 MG PO DAILY, (Reported) Entered as Reported by: ARACELY ONEILL on 02/08/20 1047 Omeprazole (Omeprazole) 40 Mg Capsule.dr, 40 MG PO DAILY, (Reported) Entered as Reported by: ARACELY ONEILL on 02/08/20 1047 Ondansetron (Ondansetron Odt) 4 Mg Tab.rapdis, 4 MG SL Q8H PRN for NAUSEA/VOMITING Prescribed by: Araseli Maradiaga on 05/02/22 2111 Pantoprazole Sodium (Protonix) 40 Mg Tablet.dr, 40 MG PO DAILY Prescribed by: SUMAYA WATSON on 02/11/20 1021 Pantoprazole Sodium (Protonix) 40 Mg Tablet.dr, 40 MG PO DAILY Prescribed by: EYAL TUCKER on 09/15/21 185 Sertraline HCl (Sertraline HCl) 100 Mg Tablet, 100 MG PO HS, (Reported) Entered as Reported by: MULUGETA PADILLA on 07/05/16 100 Sucralfate (Carafate) 1 Gram Tablet, 1 GM PO QID Prescribed by: EYAL TUCKER on 09/15/21 185 Tramadol HCl (Tramadol HCl) 50 Mg Tablet, 100 MG PO Q8H PRN for PAIN, (Reported) Entered as Reported by: MULUGETA PADILLA on 07/05/16 1004 Review of Systems Review of Systems Constitutional: see HPI Past Aytnhnf-Uyircl-Stamum Hx Patient Social History Tobacco Use?: Yes Substance use?: Yes Substance type: Marijuana Alcohol Use?: No Immunizations Up To Date Tetanus Booster (TDap): Unknown PED Vaccines UTD: No Influenza Vaccine Up-to-Date: No; Not Current Seasonal Allergies Seasonal Allergies: No Past Medical History Surgery/Hospitalization HX: PMH;ANEMIA. SURGERY; APPENDECTOMY 2001 AND FACIAL RECON. SURGERY 1990. Surgeries: Yes (FACIAL RECONSTRUCTION SURGERY; KIDNEY STONE REMOVAL) Appendectomy, Renal Respiratory: No Cardiac: Yes Hypertension Neurological: No Reproductive Disorders: No Sexually Transmitted Disease: No Genitourinary: Yes Kidney Stones Gastrointestinal: Yes Gastroesophageal Reflux, Hiatal Hernia Musculoskeletal: No Endocrine: No HEENT: No Cancer: No Psychosocial: Yes Depression Integumentary: No Blood Disorders: Yes (anemia) Adverse Reaction/Blood Tranf: No (had 6 units without problems) Family Medical History Completed stroke 19 MOTHER Diabetes mellitus 19 MOTHER Headache disorder 19 FATHER Hypertension 19 FATHER 19 MOTHER G8 BROTHER G8 BROTHER G8 BROTHER G8 BROTHER G8 SISTER G8 SISTER G8 SISTER G8 SISTER Physical Exam Vital Signs Vital Signs - First Documented 05/02/22 18:05 Temp 37.3 Pulse 109 B/P (MAP) 147/119 (128) Pulse Ox 99 O2 Delivery Room Air Capillary Refill : Height/Weight/BMI Height: 5'11.00" Weight: 255lbs. 4.0oz. 115.085360am; 32.00 BMI Method:Stated General Appearance: mild distress Neck: supple, normal inspection Respiratory: lungs clear, normal breath sounds, no respiratory distress, no accessory muscle use Cardiovascular: no gallop, no JVD, no murmur, tachycardia Gastrointestinal: normal bowel sounds, soft, tenderness (all quadrants) Rectal: normal exam, normal rectal tone, heme negative stool, black stool, other (dark colored stool) Extremities: normal range of motion, normal inspection Back: normal inspection, no CVA tenderness Neurologic/Psychiatric: alert, normal mood/affect, oriented x 3 Skin: diaphoresis, pallor Progress/Results/Core Measures Results/Orders Lab Results Laboratory Tests Test 05/02/22 18:12 05/02/22 20:58 Range/Units White Blood Count 10.4 4.3-11.0 10^3/uL Red Blood Count 4.64 4.30-5.52 10^6/uL Hemoglobin 12.7 L 13.3-17.7 g/dL Hematocrit 39 L 40-54 % Mean Corpuscular Volume 83 80-99 fL Mean Corpuscular Hemoglobin 27 25-34 pg Mean Corpuscular Hemoglobin Concent 33 32-36 g/dL Red Cell Distribution Width 14.5 10.0-14.5 % Platelet Count 400 130-400 10^3/uL Mean Platelet Volume 10.2 9.0-12.2 fL Immature Granulocyte % (Auto) 0 % Neutrophils (%) (Auto) 78 H 42-75 % Lymphocytes (%) (Auto) 15 12-44 % Monocytes (%) (Auto) 6 0-12 % Eosinophils (%) (Auto) 0 0-10 % Basophils (%) (Auto) 0 0-10 % Neutrophils # (Auto) 8.2 H 1.8-7.8 10^3/uL Lymphocytes # (Auto) 1.6 1.0-4.0 10^3/uL Monocytes # (Auto) 0.6 0.0-1.0 10^3/uL Eosinophils # (Auto) 0.0 0.0-0.3 10^3/uL Basophils # (Auto) 0.0 0.0-0.1 10^3/uL Immature Granulocyte # (Auto) 0.0 0.0-0.1 10^3/uL Sodium Level 140 135-145 MMOL/L Potassium Level 3.8 3.6-5.0 MMOL/L Chloride Level 108 H 98-107 MMOL/L Carbon Dioxide Level 24 21-32 MMOL/L Anion Gap 8 5-14 MMOL/L Blood Urea Nitrogen 19 H 7-18 MG/DL Creatinine 0.96 0.60-1.30 MG/DL Estimat Glomerular Filtration Rate 97 BUN/Creatinine Ratio 20 Glucose Level 120 H 70-105 MG/DL Calcium Level 9.6 8.5-10.1 MG/DL Corrected Calcium 9.4 8.5-10.1 MG/DL Total Bilirubin 0.4 0.1-1.0 MG/DL Aspartate Amino Transf (AST/SGOT) 9 5-34 U/L Alanine Aminotransferase (ALT/SGPT) 9 0-55 U/L Alkaline Phosphatase 84 40-136 U/L Total Protein 6.9 6.4-8.2 GM/DL Albumin 4.3 3.2-4.5 GM/DL Lipase 19 8-78 U/L Urine Color YELLOW Urine Clarity CLEAR Urine pH 5.5 5-9 Urine Specific [place] 1.010 L 1.016-1.022 Urine Protein NEGATIVE NEGATIVE Urine Glucose (UA) NEGATIVE NEGATIVE Urine Ketones NEGATIVE NEGATIVE Urine Nitrite NEGATIVE NEGATIVE Urine Bilirubin NEGATIVE NEGATIVE Urine Urobilinogen 0.2 < = 1.0 MG/DL Urine Leukocyte Esterase NEGATIVE NEGATIVE Urine RBC (Auto) NEGATIVE NEGATIVE Urine RBC RARE /HPF Urine WBC RARE /HPF Urine Squamous Epithelial Cells NONE /HPF Urine Crystals NONE /LPF Urine Bacteria NEGATIVE /HPF Urine Casts NONE /LPF Urine Mucus NEGATIVE /LPF Urine Culture Indicated NO My Orders Orders - ARASELI MARADIAGA [employer] Comprehensive Metabolic Panel (05/02/22 18:43) Lipase (05/02/22 18:43) Ua Culture If Indicated (05/02/22 18:43) Ed Iv/Invasive Line Start (05/02/22 18:43) Cbc With Automated Diff (05/02/22 18:43) Ct Abdomen/Pelvis W (05/02/22 18:43) Ondansetron Injection (Zofran Injectio (05/02/22 18:45) Ns Iv 1000 Ml (Sodium Chloride 0.9%) (05/02/22 18:43) Ed Iv/Invasive Line Start (05/02/22 18:43) Iohexol Injection (Omnipaque 350 Mg/Ml 1 (05/02/22 19:00) Ns (Ivpb) (Sodium Chloride 0.9% Ivpb Bag (05/02/22 19:00) Fentanyl Inj (Sublimaze Injection) (05/02/22 19:36) Medications Given in ED Vital Signs/I&O 05/02/22 05/02/22 18:05 21:19 Temp 37.3 Pulse 109 B/P (MAP) 147/119 (128) 135/115 Pulse Ox 99 O2 Delivery Room Air 05/03/22 00:00 Intake Total 1000 ml Balance 1000 ml Blood Pressure Mean: 128 Fecal Occult: Negative Progress Progress Note #1: Time: 18:30 Progress Note Patient seen and evaluated, sitting on bed in mild distress, pale in color, sweating noted to forehead. Based on exam and symptoms, differential diagnosis includes GI bleed, gastritis, kidney stone. Abdominal pain work-up initiated. Hemoccult obtained and negative. Progress Note #2: Time: 21:04 Progress Note Transfer attempted to , [facility] in [facility], no beds available. Unable to get consult with cardiothoracic surgeon from due to the surgeons being in the operating room. Spoke with Dr. Wall, patient's PCP. Dr. Wall will take care of referral in the morning. Dr. Wall wants patient to call him in the morning and bring lab and CT results with him. Discussed test results and follow-up with patient. Strict return precautions provided. Patient instructed to follow-up with Dr. Wall and to take lab results and CT results with him. Departure Communication (Admissions) Time/Spoke to Consulting Phy: 20:15 Dr. Srinivasan, surgery consulted for abnormal CT abdomen. Dr. Srinivasan recommends transfer to , but states they may not accept due to normal labs and patient being hemodynamically stable. Recommends liquid diet and close follow-up. Impression Primary Impression: Gastric volvulus Disposition: HOME, SELF-CARE Condition: Stable Departure-Patient Inst. Decision time for Depature: 21:06 Referrals: JEROD WALL MD (PCP/Family) Primary Care Physician Patient Instructions: Hiatal Hernia Add. Discharge Instructions: Clear liquids until follow-up, no carbonated drinks, drink small amounts at a time. Call Dr. Wall's office in the morning. Take print out of labs and CT result to Dr. Wall. Return for any worsening abdominal pain, inability to keep anything down, increased coffee-ground emesis, black tarry stools. Return for any new, concerning, or worsening symptoms. You can take Zofran 1 tablet under the tongue every 8 hours as needed for nausea/vomiting. All discharge instructions reviewed with patient and/or family. Voiced understanding. Scripts Ondansetron (Ondansetron Odt) 4 Mg Tab.rapdis 4 MG SL Q8H PRN for NAUSEA/VOMITING for 7 Days, #21 TAB 0 Refills Prov: ARASELI MARADIAGA APRN 05/02/22 ARASELI MARADIAGA APRN May 02, 2022 18:53
[2022-05-02 18:54] LABS: BASOPHILS % (AUTO) 0 % (0-10); EOSINOPHILS % (AUTO) 0 % (0-10); HEMATOCRIT 39 % (40-54); HEMOGLOBIN 12.7 g/dL (13.3-17.7); LYMPHOCYTES # (AUTO) 1.6 10^3/uL (1.0-4.0); LYMPHOCYTES % (AUTO) 15 % (12-44); MEAN CORPUSCULAR HEMOGLOBIN 27 pg (25-34); MEAN CORPUSCULAR HGB CONC 33 g/dL (32-36); MEAN CORPUSCULAR VOLUME 83 fL (80-99); MEAN PLATELET VOLUME 10.2 fL (9.0-12.2); MONOCYTES # (AUTO) 0.6 10^3/uL (0.0-1.0); MONOCYTES % (AUTO) 6 % (0-12); NEUTROPHILS # (AUTO) 8.2 10^3/uL (1.8-7.8); NEUTROPHILS % (AUTO) 78 % (42-75); PLATELET COUNT 400 10^3/uL (130-400); WHITE BLOOD COUNT 10.4 10^3/uL (4.3-11.0)
[2022-05-02] MEDS ORDERED: IOHEXOL 350 MG/ML 100 ML (OMNIPAQUE 350) VIAL IV ONE (19:00)
[2022-05-02] MEDS ORDERED: NS 100 ML (IVPB) BAG IV ONE (19:00)
[2022-05-02 19:04] LABS: ALBUMIN 4.3 GM/DL (3.2-4.5); BILIRUBIN,TOTAL 0.4 MG/DL (0.1-1.0); CALCIUM 9.6 MG/DL (8.5-10.1); CREATININE SERUM 0.96 MG/DL (0.60-1.30); POTASSIUM 3.8 MMOL/L (3.6-5.0); TOTAL PROTEIN 6.9 GM/DL (6.4-8.2)
[2022-05-02] MEDS ORDERED: fentaNYL INJ 100 MCG/2 ML AMP IVP STA (19:36)
--- NOTE | 2022-05-02 19:45 | Diagnostic Imaging Report ---
PROCEDURE: CT abdomen and pelvis with contrast. TECHNIQUE: Multiple contiguous axial images were obtained through the abdomen and pelvis after administration of intravenous contrast. Auto Exposure Controls were utilized during the CT exam to meet ALARA standards for radiation dose reduction. All CT scans use one or more of the following dose optimizing techniques: automated exposure control, MA and/or KvP adjustment based on patient size and exam type or iterative reconstruction. INDICATION: Nausea, vomiting, pain 3 months duration. Low back pain on the left of one week. Compared 03/27/2018. FINDINGS: There is retrocardiac herniation of probably about two thirds the gastric volume, the herniated portion of the intrathoracic stomach is rotated greater than 180 degrees along the mesenteric axis. The intrathoracic stomach shows some mucosal thickening and prominence of the rugal folds. No pneumatosis. The EG junction is at the lower margin of the [id number]. The thoracic esophagus above that level is outside the [id number], cannot assess for its dilatation. There is no luminal dilatation of the intra or extrathoracic stomach. The gallbladder, liver, bile ducts, spleen, adrenals, and pancreas appeared normal. There are nonobstructing bilateral renal calculi with no perinephric or periureteric edema. The appendix is surgically absent. There is no diverticulitis. Prostate, seminal vesicles and urinary bladder appeared unremarkable. There is no ascites, abscess, hematoma or acute fluid collection. No pneumatosis. No free gas. The bony structures nonacute. IMPRESSION: 1. Large retrocardiac gastric hernia with some progressive swirling in volvulation of the intrathoracic stomach which shows some likely mucosal edema and hyperemia and changes of gastritis. No abnormality of the infradiaphragmatic stomach and no outlet obstruction, no bowel obstruction. 2. Renal calculi nonobstructing. Dictated by: Dictated on workstation # [id number]
[2022-05-02 21:06] LABS: BILIRUBIN,URINE NEGATIVE (NEGATIVE); CLARITY,URINE CLEAR; COLOR,URINE YELLOW; GLUCOSE, URINE (UA) NEGATIVE (NEGATIVE); KETONES,URINE NEGATIVE (NEGATIVE); LEUKOCYTE ESTERASE ,URINE NEGATIVE (NEGATIVE); NITRITE,URINE NEGATIVE (NEGATIVE); PH,URINE 5.5 (5-9); PROTEIN,URINE NEGATIVE (NEGATIVE)
[2022-05-02] MEDS ORDERED: ONDA4TAB11 SL (21:11)
[2022-05-02 21:19] VITALS: BP 135/115
[2022-05-02 21:27] LABS: BACTERIA,URINE NEGATIVE /HPF; RBC,URINE RARE /HPF; WBC,URINE RARE /HPF
== END 2022-05-02 21:17 | disposition home or self-care (01) ==
LOC: EDUNIT# 18:00 → ER 18:02
DX: K56.2 Volvulus (principal); I10 Essential (primary) hypertension; M19.90 Unspecified osteoarthritis, unspecified site; K21.9 Gastro-esophageal reflux disease without esophagitis; Z90.49 Acquired absence of other specified parts of digestive tract; Z28.310 Unvaccinated for COVID-19; Z79.899 Other long term (current) drug therapy
CPT/HCPCS: 36415; 74177; 80053; 81000; 82274; 83690; 85025

== ENCOUNTER 2022-10-16 11:48 | Day surgery (SDC) | payer OTHER ==
[~2022-10-16] VITALS: Ht 180.3 cm; Wt 115.4 kg
[~2022-10-16 11:48] MED LIST changes: +ONDA4TAB11 SL
[2022-10-16] MEDS ORDERED: LACTATED RINGERS 1,000 ML IV STA (11:50)
[2022-10-16] MEDS ORDERED: LIDOCAINE JELLY 2% 6 ML SYRINGE MM PRN (12:00)
[2022-10-16] MEDS ORDERED: HURRICAINE EXT TUBE (BENZOCAINE) XX PRN (12:00)
[2022-10-16] MEDS ORDERED: LIDOCAINE JELLY 2% 6 ML SYRINGE ONE (12:03)
[2022-10-16 12:05] VITALS: BP 159/100
--- NOTE | 2022-10-16 12:10 | Progress Note-Pre Operative ---
Pre-Operative Progress Note Date of Available H&P: Oct 16, 2022 Date H&P Reviewed: Oct 16, 2022 Time H&P Reviewed: 12:00 History & Physical: No changes noted Pre-Operative Diagnosis: dysphagia, GERD SUMAYA WATSON MD Oct 16, 2022 12:10
[2022-10-16] MEDS ORDERED: ONDANSETRON 4 MG (ZOFRAN) ORAL DISSOLVE TAB PO PRN (12:15)
[2022-10-16] MEDS ORDERED: ONDANSETRON 4 MG/2 ML (SDV) Z0FRAN IVP PRN (12:15)
[2022-10-16] MEDS ORDERED: MIDAZOLAM 2 MG/2 ML (VERSED) VIAL ONE (12:17)
[2022-10-16] MEDS ORDERED: proPOfol 200 MG/20 ML (DIPRIVAN) VIAL IV ONE (12:17)
[2022-10-16 12:35] VITALS: BP 118/59
[2022-10-16 12:40] VITALS: BP 119/58
--- NOTE | 2022-10-16 12:59 | Progress Note-Post Operative ---
Post-Operative Progess Note Surgeon (s)/Activity Director (s) Surgeon SUMAYA WATSON MD Activity Director: none Pre-Operative Diagnosis dysphagia, GERD Post-Operative Diagnosis reflux esophagitis(grade B-C), mild dist esoph stricture, large type 4 HH(>5cm), moderate gastritis, no distal obstructions. Procedure & Operative Findings Date of Procedure 10/16/22 Procedure Performed/Findings EGD with bx and balloon dilatation. Anesthesia Type mac Estimated Blood Loss Estimated blood loss (mL): minimal Specimens/Packing Specimens Removed ge jxn, antrum SUMAYA WATSON MD Oct 16, 2022 12:59
--- NOTE | 2022-10-16 13:00 | Discharge Inst-Surgical ---
D/C Lap Instructions-WALTER Will call patient for referral to forgut specialist. Activity as tolerated Avoid Alcohol, Caffeine, Spicy [place] and Acid foods. Drink 64 fluid oz or more of fluids per day. Symptoms to Report: Fever over 101 degree F, Nausea/Vomiting If any problems/questions: Contact your physician or go to Emergency Room SUMAYA WATSON MD Oct 16, 2022 13:00
[2022-10-16 13:15] VITALS: BP 119/58
--- NOTE | 2022-10-16 14:16 | Anesthesia-General Post-Op ---
MAC Patient Condition Mental Status/LOC: Same as Preop Cardiovascular: Satisfactory Nausea/Vomiting: Absent Respiratory: Satisfactory Pain: Controlled Complications: Absent Post Op Complications Complications None Follow Up Care/Instructions Patient Instructions None needed. Anesthesiology Discharge Order Discharge Order Patient is doing well, no complaints, stable vital signs, no apparent adverse anesthesia problems. No complications reported per nursing. KRISS GUERRERO WEB WEAVER Oct 16, 2022 14:16
--- NOTE | 2022-10-16 20:21 | OPERATIVE REPORT ---
DATE OF SERVICE: 10/16/2022 ATTENDING PRIMARY CARE PHYSICIAN: Dr. Francisco Javier Wall. PREOPERATIVE DIAGNOSES: Dysphagia, history of reflux esophagitis and small to moderate size hiatal hernia. POSTOPERATIVE DIAGNOSES: Reflux esophagitis between [place] grade B and C with a mild distal esophageal stricture. Intrathoracic GE junction. Large hiatal hernia, greater than 5 cm in size. This appears to be a type 4 hiatal hernia. PROCEDURE: EGD with biopsy and balloon dilatation. SURGEON: Sumaya Watson MD ANESTHESIA: Monitored anesthesia care. ESTIMATED BLOOD LOSS: Minimal. FINDINGS: Reflux esophagitis between Hudson grade B and C with a mild distal esophageal stricture. Intrathoracic GE junction. Large hiatal hernia, greater than 5 cm in size. This appears to be a type 4 hiatal hernia. DISPOSITION: The patient tolerated the procedure well. INDICATIONS: The patient is a 52-year-old male known to us. He was initially referred over for reflux, regurgitation and dysphagia and his symptoms have been occurring for 6 months. He had also reported nocturnal coughing and choking. He did have risk factors including smoking and chewing tobacco at the time. On 01/2020, he underwent an EGD with biopsy and balloon dilatation, was found to have reflux esophagitis between Hudson grade B and C as well as a mild distal esophageal stricture, small to moderate size hiatal hernia, approximately 2.5 cm in size was identified at that time. There was also an esophageal candidiasis and no distal obstructions. There was a mild distal esophageal stricture, which was also dilated. He was instructed to follow up; however, we had not seen him in the office. He came in recently to the office after having an episode of severe chest and back pain and shortness of breath. A CT scan was performed and a large retrocardiac hiatal hernia was identified with also radiologic of mucosal swelling and potential volvulus; however, no signs of ischemia or perforation. DESCRIPTION OF PROCEDURE: The patient was brought to the endoscopy suite and laid in the left lateral decubitus position. After adequate IV pain and sedative medications and monitored anesthesia care, the mouthpiece was applied. The endoscope was placed in the mouth, visualizing the pharynx and hypopharyngeal region. Vocal cords, epiglottis and vallecula identified and appeared to be normal. The endoscope was then gently intubated in the esophageal opening and esophagus insufflated. The endoscope was then advanced through the first, second and third portions of esophagus at the level of the GE junction. The GE junction was found to be intrathoracic and stomach within the mediastinum consistent with a type 4 hiatal hernia. There was a mild distal esophageal stricture and a reflux esophagitis between grade B and C. A biopsy was taken with forceps with visualization of good hemostasis. The endoscope was then advanced into the stomach and endoscope retroflexed visualizing a large hiatal hernia, greater than 5 cm in size. There was a moderate severity gastritis and a biopsy was taken of the antrum to rule out H. pylori. The endoscope was then advanced through the pylorus and first and second portion of the duodenum, which appeared normal with no distal obstructions. The balloon was then placed in the stomach and pulled back to the area of the stricture. We then proceeded with graded dilatation from 2, 4, then eventually 6 atmospheres of pressure or moderate resistance and left this in place for approximately 60 seconds. The balloon was desufflated and removed with visualization of good hemostasis as well as no mucosal tears. The endoscope was then slowly withdrawn while taking a second look and suctioning of residual air with no additional findings. The patient tolerated the procedure well. We will recommend continued medical management for now, which would encompass smoking cessation as well as the necessary lifestyle and dietary changes including small and more frequent meals, avoidance of eating at night as well as head elevation while lying supine. He states that he was taking omeprazole 40 mg daily; however, we recently started him on Protonix 40 mg daily to be taken at a second time during the day as well. He does have a large type 4 hiatal hernia and due to the magnitude of this, we will refer him to the adequate foregut specialist for repair. Job ID: [id number] DocumentID: [id number] Dictated Date: 10/16/2022 12:45:32 Ui Programmer Date: 10/16/2022 20:19:00 Dictated By: SUMAYA WATSON MD [facility]ITALSt[facility]
== END 2022-10-16 13:15 | disposition home or self-care (01) ==
LOC: ENDO 11:48
PROVIDERS: ATTEND Surgery
DX: K21.00 Gastro-esophageal reflux disease with esophagitis, without bleeding (principal); K29.50 Unspecified chronic gastritis without bleeding; K44.9 Diaphragmatic hernia without obstruction or gangrene; K22.2 Esophageal obstruction; K31.89 Other diseases of stomach and duodenum; E66.9 Obesity, unspecified; Z68.35 Body mass index [BMI] 35.0-35.9, adult; F17.210 Nicotine dependence, cigarettes, uncomplicated; Z79.899 Other long term (current) drug therapy

== ENCOUNTER → 2023-01-14 | Outpatient (CLI) | payer SELFPAY ==
--- NOTE | 2023-01-14 14:00 | Diagnostic Imaging Report ---
INDICATION: 52-year-old male, hiatal hernia with gastric volvulus. History of abdominal pain. The patient was administered a solid test meal with 1.02 mCi Tc 99M sulfur colloid used for labeling of the meal. Region of interest curves were drawn over the stomach with the percent of retained activity calculated at hourly timed intervals for a total of 4 hours. A time activity curve was generated. FINDINGS: Percent retention as follows: (percent of administered activity retained within the stomach): 1.0 hour: 90% {<30% = Rapid, >90% = Delayed} 2.0 hour: 99% {>60% = Abnormally Delayed} 3.0 hour: 99% {>30% = Abnormally Delayed} 4.0 hour: 99% {>10% = Abnormally Delayed} Gastric emptying half time is measured at 34.58 minutes IMPRESSION: Rapid gastric emptying. Dictated by: Dictated on workstation # [id number]
== END ==
LOC: CARD 08:30
DX: K44.9 Diaphragmatic hernia without obstruction or gangrene (principal)
CPT/HCPCS: 78264; A9541